=== PATIENT | male | born 1940 | race Caucasian/White ===

== ENCOUNTER 2016-11-15 08:53 | Outpatient (CLI) | payer MEDICARE | END 2016-11-15 08:54 | disposition home or self-care (01) | DX: I10 Essential (primary) hypertension (principal); C61 Malignant neoplasm of prostate ==

== ENCOUNTER 2017-10-07 10:06 | Outpatient (CLI) | payer MEDICARE ==
--- NOTE | 2017-10-07 15:52 | XRAY Report ---
DATE OF SERVICE: 10/07/2017 TWO VIEW CHEST: 10/07/2017 CLINICAL INDICATION: Cough. FINDINGS: Frontal and lateral views of the chest demonstrate a normal cardiac silhouette. There is consolidation in the left upper lobe, which appears mass-like on the lateral projection. Followup radiographs following appropriate antibiotic therapy are recommended to document resolution. Trace left effusion is present. No pneumothorax is seen. The right lung is clear. IMPRESSION: MASS-LIKE CONSOLIDATION IN THE LEFT UPPER LOBE, WITH TRACE LEFT EFFUSION. FOLLOWUP RADIOGRAPHS FOLLOWING APPROPRIATE ANTIBIOTIC THERAPY ARE RECOMMENDED TO DOCUMENT RESOLUTION. TD: 10/07/2017 16:51
== END 2017-10-07 10:07 | disposition home or self-care (01) ==
LOC: DI.S 10:06
PROVIDERS: ATTEND Physician Assistant Medical
DX: J18.1 Lobar pneumonia, unspecified organism (principal)
CPT/HCPCS: 71046

== ENCOUNTER 2017-10-28 09:27 | Outpatient (CLI) | payer MEDICARE ==
--- NOTE | 2017-10-28 12:49 | XRAY Report ---
TWO VIEW CHEST: 10/28/2017 CLINICAL INDICATION: Pneumonia, chest wall pain. FINDINGS: Frontal and lateral views of the chest are compared to previous films of 10/07/2017. The cardiac silhouette is within normal limits. The left upper lobe consolidation persists. Consider chest CT for further evaluation. No definite residual effusion is seen. No pneumothorax. IMPRESSION: NO SIGNIFICANT INTERVAL CHANGE IN LEFT UPPER LOBE CONSOLIDATION. CONSIDER CHEST CT FOR FURTHER EVALUATION. TD: 10/28/2017 12:48
== END 2017-10-28 09:28 | disposition home or self-care (01) ==
LOC: DI.S 09:27
PROVIDERS: ATTEND Family Medicine
DX: J18.9 Pneumonia, unspecified organism (principal)
CPT/HCPCS: 71046

== ENCOUNTER 2017-11-01 14:26 | Emergency (ER) | payer MEDICARE ==
--- NOTE | 2017-11-01 14:54 | ED Physician Documentation ---
PD HPI CHEST PAIN - Stated complaint Stated Complaint: CHEST PX - Chief complaint Chief Complaint: Cardiac - History obtained from History obtained from: Patient, Family - History of Present Illness Timing - onset: Other (77-year-old gentleman with history of hypertension, started having chest pain, left upper side and radiating to the left upper scapula about 2 months ago. Was seen in the clinic several times and prescribed ibuprofen and Aleve without much relief. He had a chest x-ray suggesting left upper lobe pneumonia and was placed on antibiotics and then had a repeat chest x-ray a few days ago showing no improvements raising the diagnosis of possible cancer. His pain is uncontrolled and he also needs a definitive diagnosis.) Review of Systems Ten Systems: 10 systems reviewed and negative Constitutional: reports: Fatigue. denies: Fever, Chills, Sweats Cardiac: reports: Chest pain / pressure. denies: Palpitations, Pedal edema, Calf pain Respiratory: denies: Dyspnea, Cough PD PAST MEDICAL HISTORY - Past Medical History Cardiovascular: Hypertension, Murmur Respiratory: None Endocrine/Autoimmune: None GI: None : Frequency, Other HEENT: Chronic vision loss, Chronic hearing loss Psych: Anxiety Musculoskeletal: Gout Derm: None - Past Surgical History General: Colonoscopy HEENT: Tonsil/Adenoidectomy - Present Medications Home Medications: Ambulatory Orders Medication Instructions Recorded Confirmed Allopurinol [Zyloprim] 100 mg PO DAILY 07/25/16 07/26/16 Alprazolam [Xanax Xr] 0.5 mg PO QPM PRN 07/25/16 07/26/16 Aspirin [Adult Low Dose Aspirin EC] 81 mg PO DAILY 07/25/16 07/26/16 Lisinopril 20 mg PO DAILY 07/25/16 07/26/16 Metoprolol Succinate 50 mg PO DAILY 07/25/16 07/26/16 HYDROcod/ACETAM 5/325 [[place] 5/325] 1 - 2 ea PO Q6H PRN #30 tablet 11/01/17 - Allergies Allergies/Adverse Reactions: Allergies Allergy/AdvReac Type Severity Reaction Status Date / Time No Known Drug Allergies Allergy Verified 11/01/17 15:37 - Family History Family history: reports: Non contributory PD ED PE NORMAL - Vitals Vital signs reviewed: Yes - General General: Alert and oriented X 3, No acute distress - HEENT HEENT: PERRL, EOMI - Neck Neck: Supple, no meningeal sign, No bony TTP - Cardiac Cardiac: RRR, No murmur - Respiratory Respiratory: Other (Splinting his breaths, diminished at the left base) - Abdomen Abdomen: Soft, Non tender - Back Back: No CVA TTP, No spinal TTP - Derm Derm: Normal color, Warm and dry - Extremities Extremities: No edema, No calf tenderness / cord - Neuro Neuro: Alert and oriented X 3, Normal speech - Psych Psych: Normal mood, Normal affect Results - Vitals Vitals: Vital Signs - 24 hr 11/01/17 11/01/17 14:33 15:30 Temperature 37.0 C Heart Rate 97 95 Respiratory 18 14 Rate Blood Pressure 171/102 H 178/101 H O2 Saturation 97 94 Oxygen O2 Source Room air - EKG (time done) 1437 Rate: Rate (enter#) (104) Rhythm: Sinus tachycardia (with PVCs) [place]: Normal Intervals: Normal [place] QRS: Normal Ischemia: Non specific changes Computer interpretation: Agree with computer - Labs Labs: Laboratory Tests 11/01/17 11/01/17 11/01/17 14:50 14:50 14:50 WBC 9.0 RBC 5.39 Hgb 15.4 Hct 45.9 MCV 85.2 MCH 28.5 MCHC 33.5 RDW 13.5 Plt Count 237 MPV 7.2 L Neut # 6.8 H Lymph # 1.1 L Wallace # 0.7 Eos # 0.3 Baso # 0.1 Absolute Nucleated RBC 0.00 Nucleated RBC % 0.0 PT 11.6 INR 1.0 Sodium 135 Potassium 3.8 Chloride 98 L Carbon Dioxide 28 Anion Gap 9.0 BUN 17 Creatinine 0.8 Estimated GFR (MDRD) 94 Glucose 103 H Calcium 9.3 Total Bilirubin 1.2 H AST 26 ALT 14 Alkaline Phosphatase 88 Troponin I Total Protein 7.6 Albumin 4.1 Globulin 3.5 Albumin/Globulin Ratio 1.2 Lipase 13 L 11/01/17 14:50 WBC RBC Hgb Hct MCV MCH MCHC RDW Plt Count MPV Neut # Lymph # [place] # Eos # Baso # Absolute Nucleated RBC Nucleated RBC % PT INR Sodium Potassium Chloride Carbon Dioxide Anion Gap BUN Creatinine Estimated GFR (MDRD) Glucose Calcium Total Bilirubin AST ALT Alkaline Phosphatase Troponin I < 0.04 Total Protein Albumin Globulin Albumin/Globulin Ratio Lipase - Rads (name of study) CT Chest Radiology: EMP read contemporaneously (4.4 x 3.7 x 6.1 cm thick-walled irregular cavitating mass in the left upper lobe concerning for primary lung neoplasm. There is a skin lesion in the left upper back corresponding to a sebaceous cyst on exam.) PD MEDICAL DECISION MAKING - ED course ED course: 77-year-old gentleman with ongoing left upper chest pain radiating to the back which based on previous imaging is concerning for malignancy which is corroborated by CT imaging done here. Case discussed by phone with primary care on-call, VINICIO Cornejo who will arrange for an expedited referral to a CT surgeon for hopefully definitive treatment. Departure - Departure Disposition: Home, Self Care Clinical Impression: Lung mass Chest pain Qualifiers: Chest pain type: chest pain on breathing Qualified Code(s): R07.1 - Chest pain on breathing; R07.81 - Pleurodynia Condition: Good Record reviewed to determine appropriate education?: Yes Prescriptions: HYDROcod/ACETAM 5/325 [[place] 5/325] 1 - 2 ea PO Q6H PRN #30 tablet PRN Reason: Pain Comments: Dr. Mathews's partner knows about the issue but call Dr. Mathews on Saturday to make sure that the referral is going through, as discussed you will need to see a cardiothoracic surgeon for evaluation for further treatment. Refer return if worse. Your blood pressure was elevated today on check into the emergency department. This does not mean that you have hypertension, it is a common phenomenon to come to the emergency department and have elevated blood pressure. I recommend that you see your primary care physician within the week to have it rechecked when you are feeling better. Do not drink or drive while taking narcotic pain medication. Note that many narcotic pain relievers also contain Tylenol/acetaminophen. Please ensure that your total dose of acetaminophen from all sources does not exceed 3 g (3000 mg) per day. You may get constipated while on this medication. Take a stool softener such as Colace twice a day while you are on it. Also add an [id number] laxative such as senna or MiraLAX on any day that you do not have a bowel movement. If you received a narcotic pain medication or sedative while in the emergency department, do not drive for the next 24 hours.
[2017-11-01] MEDS: MORPHINE 2 MG/ML CARPUJECT IVP STA (15:03)
[2017-11-01 15:16] LABS: BASOPHILS # (AUTO) 0.1 10^3/uL (0.0-0.1); BASOPHILS % (AUTO) 0.7 %; EOSINOPHILS # (AUTO) 0.3 10^3/uL (0.0-0.7); EOSINOPHILS % (AUTO) 3.8 %; HGB - HEMOGLOBIN 15.4 g/dL (14.0-18.0); LYMPHOCYTES # (AUTO) 1.1 10^3/uL (1.5-3.5); LYMPHOCYTES % (AUTO) 11.8 %; MEAN CORPUSCULAR HEMOGLOBIN 28.5 pg (27.0-31.0); MEAN CORPUSCULAR HGB CONC 33.5 g/dL (32.0-36.0); MEAN CORPUSCULAR VOLUME 85.2 fL (80.0-94.0); MEAN PLATELET VOLUME 7.2 fL (7.4-11.4); MONOCYTES # (AUTO) 0.7 10^3/uL (0.0-1.0); MONOCYTES % (AUTO) 7.5 %; NEUTROPHILS # (AUTO) 6.8 10^3/uL (1.5-6.6); NEUTROPHILS % (AUTO) 76.2 %; PLT - PLATELET COUNT 237 10^3/uL (130-450); RED BLOOD COUNT 5.39 10^6/uL (4.70-6.10); RED CELL DISTRIBUTION WIDTH 13.5 % (12.0-15.0)
[2017-11-01] MEDS ORDERED: IOPAMIDOL-300 100 ML VIAL ONE (15:19)
[2017-11-01 15:23] LABS: PT - PROTHROMBIN TIME 11.6 secs (9.9-12.6)
[2017-11-01 15:25] LABS: ALBUMIN 4.1 g/dL (3.2-5.5); ALBUMIN/GLOBULIN RATIO 1.2 (1.0-2.2); BILIRUBIN,TOTAL 1.2 mg/dL (0.2-1.0); CALCIUM 9.3 mg/dL (8.5-10.3); CREATININE 0.8 mg/dL (0.6-1.2); TOTAL PROTEIN 7.6 g/dL (6.7-8.2)
[2017-11-01] MEDS: IOPAMIDOL-300 100 ML VIAL IVP ONE (16:49)
--- NOTE | 2017-11-01 17:22 | CT Preliminary Report ---
Exam: CT CHEST W/ IMPRESSION: 1. 4.4 x 3.7 x 6.1 cm thick-walled irregular cavitating mass, less likely lung abscess, left upper lo be extremely worrisome for primary neoplasm. 2. Mediastinal and left hilar adenopathy. 3. 4.3 x 2.8 x 3.0 cm skin lesion left upper back. Correlate clinically to determine significance and etiology. [facility] SITE ID: [id number]
--- NOTE | 2017-11-01 17:31 | CT Report ---
EXAM: CT CHEST EXAM DATE: 11/01/2017 04:47 PM. CLINICAL HISTORY: Left chest pain and nonproductive cough for 2 months. Left upper lobe density noted on recent chest x-rays. COMPARISONS: No prior CT exam. Chest x-rays 10/28/2017, 10/07/2017. TECHNIQUE: Routine helical CT imaging was performed through the chest. IV contrast: 80 mL Isovue 300. Reconstructions: Coronal and sagittal. In accordance with CT protocol optimization, one or more of the following dose reduction techniques w ere utilized for this exam: automated exposure control, adjustment of mA and/or KV based on patient s ize, or use of iterative reconstructive technique. FINDINGS: Lungs/Pleura: Poorly defined 4.4 x 3.7 x 6.1 cm irregular density posterior aspect apical segment lef t upper lobe, abutting the pleura along the posterior intercostal space of the left fourth and fifth ribs. Pleura at this point is thickened and a slight amount of edema in the intercostal muscle. Adjac ent ribs are normal. Thick-walled internal cavitation with the cavity measuring roughly 3.5 cm. [place] wing of the apical bronchus. Small amount of peripheral nonspecific subpleural nodularity and interst itial infiltrates. Right lung is clear. No pneumothorax nor pleural effusion. Mediastinum: Heart is of normal caliber without significant pericardial fluid. Normal thoracic aorta. Multiple mildly enlarged pretracheal, periaortic and left hilar lymph nodes measuring up to 10 mm in transverse diameter. Bones: No bony metastatic disease. Visualized Abdomen: 5 cm right renal cyst. Other: 4.3 x 2.8 x 3 cm dermal or subdermal density just to the left of midline, at the level of T3 w ith low intermediate fluid contents. IMPRESSION: 1. 4.4 x 3.7 x 6.1 cm thick-walled irregular cavitating mass, less likely lung abscess, left upper lo be extremely worrisome for primary neoplasm. 2. Mediastinal and left hilar adenopathy. 3. 4.3 x 2.8 x 3.0 cm skin lesion left upper back. Correlate clinically to determine significance and etiology. [facility] Referring Provider Line: [phone] SITE ID: [id number]
[2017-11-01 18:21] VITALS: BP 187/105
== END 2017-11-01 18:20 | disposition home or self-care (01) ==
LOC: ED 14:26
DX: R07.1 Chest pain on breathing (principal); R07.81 Pleurodynia; I10 Essential (primary) hypertension; R91.8 Other nonspecific abnormal finding of lung field; I49.3 Ventricular premature depolarization; L72.3 Sebaceous cyst
CPT/HCPCS: 36415; 71260; 80053; 83690; 84484; 85025; 85610; 93005; 96374; 99283; 99285

== ENCOUNTER 2017-11-13 15:22 | Emergency (ER) | payer MEDICARE ==
--- NOTE | 2017-11-13 15:41 | ED Physician Documentation ---
PD HPI DYSPNEA - Stated complaint Stated Complaint: SOA - Chief complaint Chief Complaint: Resp - History obtained from History obtained from: Patient, Family - History of Present Illness Timing - onset: Other (77-year-old gentleman who I saw within the last few weeks , found to have a lung mass, left upper lobe. He is seeing a cardiothoracic surgeon next week. He notes increased dyspnea over the last few days with a couple days of slight hemoptysis and one night of severe sweats and chills.) Review of Systems Constitutional: reports: Chills, Fatigue, Sweats. denies: Fever Nose: reports: Reviewed and negative Throat: reports: Reviewed and negative Cardiac: reports: Reviewed and negative Respiratory: reports: Dyspnea, Cough PD PAST MEDICAL HISTORY - Past Medical History Cardiovascular: Hypertension, Murmur Respiratory: None Endocrine/Autoimmune: None GI: None : Frequency, Other HEENT: Chronic vision loss, Chronic hearing loss Psych: Anxiety Musculoskeletal: Gout Derm: None - Past Surgical History General: Colonoscopy HEENT: Tonsil/Adenoidectomy - Present Medications Home Medications: Ambulatory Orders Medication Instructions Recorded Confirmed Allopurinol [Zyloprim] 100 mg PO DAILY 07/25/16 07/26/16 Lisinopril 20 mg PO DAILY 07/25/16 11/13/17 Metoprolol Succinate 25 mg PO DAILY 07/25/16 11/13/17 HYDROcod/ACETAM 5/325 [[place] 5/325] 1 - 2 ea PO Q6H PRN #30 tablet 11/01/1703/26 - Allergies Allergies/Adverse Reactions: Allergies Allergy/AdvReac Type Severity Reaction Status Date / Time No Known Drug Allergies Allergy Verified 11/13/17 15:29 - Social History Does the pt smoke?: No Smoking Status: Former smoker Does the pt drink ETOH?: Yes Does the pt have substance abuse?: No PD ED PE NORMAL - Vitals Vital signs reviewed: Yes - General General: Alert and oriented X 3, No acute distress - Cardiac Cardiac: RRR, No murmur - Respiratory Respiratory: No respiratory distress, Clear bilaterally - Abdomen Abdomen: Non tender - Extremities Extremities: No edema, No calf tenderness / cord - Neuro Neuro: Alert and oriented X 3, Normal speech Results - Vitals Vitals: Vital Signs - 24 hr 11/13/17 11/13/17 15:26 17:23 Temperature 36.4 C L Heart Rate 104 H 98 Respiratory 16 16 Rate Blood Pressure 135/58 H 171/106 H O2 Saturation 97 98 Oxygen O2 Source Room air - Labs Labs: Laboratory Tests 11/13/17 11/13/17 15:50 15:50 WBC 8.3 RBC 5.44 Hgb 15.3 Hct 46.4 MCV 85.3 MCH 28.1 MCHC 32.9 RDW 13.7 Plt Count 232 MPV 7.3 L Neut # 6.2 Lymph # 1.0 L [place] # 0.6 Eos # 0.3 Baso # 0.2 H Absolute Nucleated RBC 0.01 Nucleated RBC % 0.1 Sodium 134 L Potassium 3.9 Chloride 101 Carbon Dioxide 25 Anion Gap 8.0 BUN 17 Creatinine 0.7 Estimated GFR (MDRD) 109 Glucose 141 H Calcium 9.5 - Rads (name of study) CT CHest Radiology: EMP read contemporaneously (no sig change) PD MEDICAL DECISION MAKING - ED course ED course: I spoke with the radiologist, Dr. Montes prior to ordering any imaging. He reviewed the old studies and knowing that I was specifically concerned for a postobstructive pneumonia felt that a repeat CT with contrast would be helpful and chest x-ray was unlikely to be diagnostic. 77-year-old gentleman with known lung tumor undergoing workup and treatment presents with Symptoms concerning for postobstructive pneumonia but this is not found on imaging and no leukocytosis. Departure - Departure Disposition: Home, Self Care Clinical Impression: Lung mass Chest pain Qualifiers: Chest pain type: unspecified Qualified Code(s): R07.9 - Chest pain, unspecified Condition: Good Record reviewed to determine appropriate education?: Yes Comments: Return if he develop a fever or otherwise worsen. Otherwise follow-up with the surgeon next Saturday as scheduled. Your blood pressure was elevated today on check into the emergency department. This does not mean that you have hypertension, it is a common phenomenon to come to the emergency department and have elevated blood pressure. I recommend that you see your primary care physician within the week to have it rechecked when you are feeling better.
[2017-11-13 16:13] LABS: BASOPHILS # (AUTO) 0.2 10^3/uL (0.0-0.1); BASOPHILS % (AUTO) 2.1 %; EOSINOPHILS # (AUTO) 0.3 10^3/uL (0.0-0.7); EOSINOPHILS % (AUTO) 4.1 %; HGB - HEMOGLOBIN 15.3 g/dL (14.0-18.0); LYMPHOCYTES % (AUTO) 11.8 %; MEAN CORPUSCULAR HEMOGLOBIN 28.1 pg (27.0-31.0); MEAN CORPUSCULAR HGB CONC 32.9 g/dL (32.0-36.0); MEAN CORPUSCULAR VOLUME 85.3 fL (80.0-94.0); MEAN PLATELET VOLUME 7.3 fL (7.4-11.4); MONOCYTES # (AUTO) 0.6 10^3/uL (0.0-1.0); MONOCYTES % (AUTO) 7.5 %; NEUTROPHILS # (AUTO) 6.2 10^3/uL (1.5-6.6); NEUTROPHILS % (AUTO) 74.5 %; PLT - PLATELET COUNT 232 10^3/uL (130-450); RED BLOOD COUNT 5.44 10^6/uL (4.70-6.10); RED CELL DISTRIBUTION WIDTH 13.7 % (12.0-15.0); WHITE BLOOD COUNT 8.3 x10^3/uL (4.8-10.8)
[2017-11-13 16:19] LABS: CALCIUM 9.5 mg/dL (8.5-10.3); CREATININE 0.7 mg/dL (0.6-1.2)
[2017-11-13] MEDS ORDERED: IOPAMIDOL-300 100 ML VIAL ONE (16:29)
[2017-11-13] MEDS ORDERED: IOPAMIDOL-300 100 ML VIAL IVP ONE (17:15)
[2017-11-13 17:24] VITALS: BP 171/106
--- NOTE | 2017-11-13 17:39 | CT Preliminary Report ---
Exam: CT CHEST W/ IMPRESSION: 1. Necrotic cavitary masslike lesion in the left upper lobe grossly unchanged since most recent study . While necrotizing pneumonia and lung carcinoma on the differential, favor cancer over infection. 2. [place], stable mediastinal adenopathy 3. Coronary artery disease. [facility] SITE ID: [id number]
--- NOTE | 2017-11-13 18:00 | CT Report ---
EXAM: CT CHEST EXAM DATE: 11/13/2017 04:52 PM. CLINICAL HISTORY: Known lung mass, new cough, hemoptysis. COMPARISONS: 11/01/2017. TECHNIQUE: Routine helical CT imaging was performed through the chest. IV contrast: 80 mL Isovue 300. Reconstructions: Coronal and sagittal. In accordance with CT protocol optimization, one or more of the following dose reduction techniques w ere utilized for this exam: automated exposure control, adjustment of mA and/or KV based on patient s ize, or use of iterative reconstructive technique. FINDINGS: Lungs/Pleura: There is a heterogeneously enhancing posterior basilar left upper lobe masslike lesion with central fluid and air. Imaging findings are most compatible with a necrotic mass versus necrotiz ing pneumonia. Necrotic cavitary portion measures approximately 4.1 x 2.9 cm. Mild interlobular septa l thickening is noted in the left upper lobe best seen on image 4, 10. The mass extends to the fissur e and the posterior and lateral pleura. Accurate measurement is challenging given the irregular shape . Overall, this is unchanged since the most recent study performed 11/01/2017. No pneumothorax or large effusions. Mild atelectatic changes at the bases. No additional lung mass or nodule. No associated destructive process of the ribs. Mediastinum: No cardiac enlargement. Shotty mediastinal and hilar adenopathy including a 1 cm prevasc ular node, 1 cm AP window node, and 0.9 cm subcarinal node. Patchy atheromatous calcified and noncalc ified plaques. No thoracic aortic dissection or aneurysm. Coronary artery disease is present in all t he major vessels. No pericardial effusion. Bones: Unremarkable. Visualized Abdomen: Mild fatty liver. Adrenal glands are normal. Visualized portions of the pancreas, spleen and gallbladder are unremarkable. Exophytic 6 cm right upper pole renal cyst, image 69. Other: No thyroid nodule or mass. No supraclavicular or axillary adenopathy. There is a stable 3.9 x 2.4 cm hypodense soft tissue mass in the midline of the upper back, image 13 as seen previously. No e nhancing components. There is mild peripheral enhancing wall or capsule. IMPRESSION: 1. Necrotic cavitary masslike lesion in the left upper lobe grossly unchanged since most recent study . While necrotizing pneumonia and lung carcinoma are in the differential, favor cancer over infection . 2. [place], stable mediastinal and hilar adenopathy. 3. Coronary artery disease. [facility] Referring Provider Line: [phone] SITE ID: [id number]
== END 2017-11-13 18:06 | disposition home or self-care (01) ==
LOC: ED 15:22
DX: D49.1 Neoplasm of unspecified behavior of respiratory system (principal); R07.9 Chest pain, unspecified; I10 Essential (primary) hypertension; Z87.891 Personal history of nicotine dependence
CPT/HCPCS: 36415; 71260; 80048; 85025; 99283; 99284; Q9967

== ENCOUNTER 2018-01-20 11:50 | Outpatient (CLI) | payer MEDICARE | END 2018-01-20 11:51 | disposition short-term general hospital (02) | LOC: EMS 11:50 | PROVIDERS: ATTEND Surgery | DX: R42 Dizziness and giddiness (principal); R53.1 Weakness | CPT/HCPCS: A0170; A0425; A0427 ==

== ENCOUNTER 2018-01-26 14:43 | Inpatient (IN) | payer MEDICARE ==
[2018-01-26 15:12] LABS: BASOPHILS % (AUTO) 0.4 %; EOSINOPHILS # (AUTO) 0.4 10^3/uL (0.0-0.7); EOSINOPHILS % (AUTO) 3.6 %; HGB - HEMOGLOBIN 9.2 g/dL (14.0-18.0); LYMPHOCYTES # (AUTO) 0.4 10^3/uL (1.5-3.5); LYMPHOCYTES % (AUTO) 4.2 %; MEAN CORPUSCULAR HEMOGLOBIN 27.3 pg (27.0-31.0); MEAN PLATELET VOLUME 6.5 fL (7.4-11.4); MONOCYTES # (AUTO) 0.6 10^3/uL (0.0-1.0); MONOCYTES % (AUTO) 5.6 %; NEUTROPHILS # (AUTO) 9.2 10^3/uL (1.5-6.6); NEUTROPHILS % (AUTO) 86.2 %; PLT - PLATELET COUNT 327 10^3/uL (130-450); RED BLOOD COUNT 3.37 10^6/uL (4.70-6.10); RED CELL DISTRIBUTION WIDTH 14.2 % (12.0-15.0); WHITE BLOOD COUNT 10.7 x10^3/uL (4.8-10.8)
--- NOTE | 2018-01-26 15:23 | ED Physician Documentation ---
PD HPI CHEST PAIN - Stated complaint Stated Complaint: SOA, BILAT LEG/FEET SWELLING - Chief complaint Chief Complaint: Cardiac - History obtained from History obtained from: Patient, Family - History of Present Illness Timing - onset: Today (On 01/13 had thoracotomy with lobectomy and resection of NSCLC. Today, early this AM with chest tightness and dyspnea. On home O2 1.5 lpm since the surgery.) Review of Systems Ten Systems: 10 systems reviewed and negative Constitutional: reports: Fatigue. denies: Fever, Chills Cardiac: reports: Chest pain / pressure (tightness- no pain). denies: Palpitations Respiratory: reports: Dyspnea. denies: Cough GI: denies: Abdominal Pain PD PAST MEDICAL HISTORY - Past Medical History Past Medical History: Yes Cardiovascular: Hypertension, Murmur Respiratory: None Endocrine/Autoimmune: None GI: None : Frequency, Other HEENT: Chronic vision loss, Chronic hearing loss Psych: Anxiety Musculoskeletal: Gout Derm: None Other Past Medical History: Lung Ca - Past Surgical History General: Colonoscopy Cardiovascular: Lobectomy HEENT: Tonsil/Adenoidectomy - Present Medications Home Medications: Ambulatory Orders Medication Instructions Recorded Confirmed Allopurinol [Zyloprim] 100 mg PO DAILY 07/25/16 07/26/16 Lisinopril 20 mg PO DAILY 07/25/16 11/13/17 Metoprolol Succinate 25 mg PO DAILY 07/25/16 11/13/17 Citalopram [CeleXA] 10 mg PO DAILY 01/26/18 01/26/18 Ferrous Sulfate 01/26/18 Furosemide [Lasix] 20 mg PO ONCE 01/26/18 01/26/18 Gabapentin [Neurontin] 200 mg PO TID 01/26/18 01/26/18 Indomethacin 50 mg PO TID 01/26/18 01/26/18 Morphine ER [Ms Contin] 15 mg PO Q12H 01/26/18 01/26/18 Potassium Chloride 20 meq PO 01/26/18 Senna [Senokot] 1 tab 01/26/18 oxyCODONE [Roxicodone] 5 mg PO Q4-6H 01/26/18 01/26/18 - Allergies Allergies/Adverse Reactions: Allergies Allergy/AdvReac Type Severity Reaction Status Date / Time No Known Drug Allergies Allergy Verified 01/26/18 14:51 - Social History Does the pt smoke?: No Smoking Status: Never smoker Does the pt drink ETOH?: No Does the pt have substance abuse?: No - Family History Family history: reports: Non contributory - Immunizations Immunizations are current?: Yes PD ED PE NORMAL - Vitals Vital signs reviewed: Yes (HTN) - General General: Alert and oriented X 3, No acute distress - HEENT HEENT: PERRL, EOMI - Neck Neck: Supple, no meningeal sign, No bony TTP - Cardiac Cardiac: RRR, No murmur - Respiratory Respiratory: No respiratory distress, Other (Diminished Left base, otherwise clear.) - Abdomen Abdomen: Soft, Non tender - Back Back: No CVA TTP, No spinal TTP - Derm Derm: Normal color, Warm and dry - Extremities Extremities: Other (2+ bilateral symmetric pitting edema. Also, mild abdominal and RUE swelling.) - Neuro Neuro: Alert and oriented X 3, Normal speech - Psych Psych: Normal mood, Normal affect Results - Vitals Vitals: Vital Signs - 24 hr 01/26/18 01/26/18 01/26/18 14:47 15:16 15:51 Temperature 36.6 C Heart Rate 106 H 87 91 Respiratory 26 H 11 L 14 Rate Blood Pressure 179/102 H 141/73 H 145/85 H O2 Saturation 96 99 98 01/26/18 01/26/18 16:20 17:49 Temperature Heart Rate 99 100 Respiratory 18 18 Rate Blood Pressure 152/91 H 158/84 H O2 Saturation 98 98 Oxygen O2 Source Nasal cannula - EKG (time done) 1451 Rate: Rate (enter#) (97) Rhythm: NSR [place]: Normal Intervals: Normal [place] QRS: Normal Ischemia: Normal ST segments Computer interpretation: Agree with computer - Labs Labs: Laboratory Tests 01/26/18 01/26/18 01/26/18 14:59 14:59 14:59 WBC 10.7 RBC 3.37 L Hgb 9.2 L Hct 28.0 L MCV 83.0 MCH 27.3 MCHC 33.0 RDW 14.2 Plt Count 327 MPV 6.5 L Neut # 9.2 H Lymph # 0.4 L [place] # 0.6 Eos # 0.4 Baso # 0.0 Absolute Nucleated RBC 0.00 Nucleated RBC % 0.0 PT 11.7 INR 1.0 Sodium 134 L Potassium 6.1 H* Chloride 98 L Carbon Dioxide 31 Anion Gap 5.0 L BUN 30 H Creatinine 1.0 Estimated GFR (MDRD) 72 L Glucose 102 H Calcium 8.9 Total Bilirubin 0.5 AST 21 ALT 11 Alkaline Phosphatase 100 Total Creatine Kinase 83 CK-MB (CK-2) Troponin I B-Natriuretic Peptide Total Protein 6.7 Albumin 3.0 L Globulin 3.7 Albumin/Globulin Ratio 0.8 L Lipase 45 01/26/18 01/26/18 14:59 14:59 WBC RBC Hgb Hct MCV MCH MCHC RDW Plt Count MPV Neut # Lymph # [place] # Eos # Baso # Absolute Nucleated RBC Nucleated RBC % PT INR Sodium Potassium Chloride Carbon Dioxide Anion Gap BUN Creatinine Estimated GFR (MDRD) Glucose Calcium Total Bilirubin AST ALT Alkaline Phosphatase Total Creatine Kinase CK-MB (CK-2) 5.4 Troponin I < 0.04 B-Natriuretic Peptide 336 H Total Protein Albumin Globulin Albumin/Globulin Ratio Lipase - Rads (name of study) 1v chest Radiology: EMP read contemporaneously (1. Status post left partial lung resection. Left pleural effusion may be present. 2. The right lung is relatively clear. 3. Heart size within normal limits. There is thoracic aortic calcification. 4. No evidence of pneumothorax. ) Ct PE Radiology: EMP read contemporaneously (1. No evidence of pulmonary embolus. 2. Status post left upper lobectomy with pleural thickening and trace left effusion as well as a small loculated pneumothorax, mostly at the apex of the left hemithorax. This can be postoperative in nature although follow-up chest x- rays are recommended to document resorption of the air. 3. Areas of diskoid atelectasis or scarring within the left hemithorax. 4. Mildly enlarged subcarinal lymph node, increased in size compared to the study of 2 months prior.) PD MEDICAL DECISION MAKING - ED course ED course: 77-year-old gentleman with recent thoracotomy for lung cancer presents with increased anasarca and dyspnea, potentially right-sided heart failure by examination, no evidence of PE. CT results as shown. He does have hyperkalemia which was treated in the department with Lasix and calcium. Spoke with Dr. Ruffin for admission at 5:25 PM. Departure - Departure Disposition: 66 [facility] DC/Xfer Clinical Impression: Anasarca, Hyperkalemia Chest pain Qualifiers: Chest pain type: other chest pain Qualified Code(s): R07.89 - Other chest pain Dyspnea Qualifiers: Dyspnea type: shortness of breath Qualified Code(s): R06.02 - Shortness of breath Condition: Serious Discharge Date/Time: 01/26/18 19:19
[2018-01-26 15:26] LABS: PT - PROTHROMBIN TIME 11.7 secs (9.9-12.6)
[2018-01-26] MEDS ORDERED: FUROSEMIDE 40 MG/4 ML VIAL IVP STA (15:27)
[2018-01-26] MEDS ORDERED: NITROGLYCERIN 2% PASTE TOP STA (15:27)
[2018-01-26 15:29] LABS: TROPONIN I < 0.04 ng/mL (<0.49)
[2018-01-26 15:31] LABS: CREATINE KINASE MB 5.4 ng/mL (0.6-6.3)
[2018-01-26 15:41] LABS: ALBUMIN/GLOBULIN RATIO 0.8 (1.0-2.2); BILIRUBIN,TOTAL 0.5 mg/dL (0.2-1.0); CALCIUM 8.9 mg/dL (8.5-10.3); TOTAL PROTEIN 6.7 g/dL (6.7-8.2)
[2018-01-26] MEDS ORDERED: CALCIUM GLUCONATE 1000 MG/10 ML VIAL IVP STA (15:41)
--- NOTE | 2018-01-26 15:45 | XRAY Report ---
EXAM: CHEST RADIOGRAPHY EXAM DATE: 01/26/2018 03:26 PM. CLINICAL HISTORY: Chest pain COMPARISON: 11/13/2017. TECHNIQUE: 1 view. FINDINGS: Lungs/Pleura: There is left lung volume loss. Patient has undergone left partial lung resection. Left effusion may be present. The right lung is relatively clear. No evidence of pneumothorax. Mediastinum: Heart size is within normal limits. There is thoracic aortic calcification. Other: Right Port-A-Cath tip terminates in the low SVC. IMPRESSION: 1. Status post left partial lung resection. Left pleural effusion may be present. 2. The right lung is relatively clear. 3. Heart size within normal limits. There is thoracic aortic calcification. 4. No evidence of pneumothorax. [facility] Referring Provider Line: [phone] SITE ID: [id number]
[2018-01-26] MEDS ORDERED: IOPAMIDOL-300 100 ML VIAL IVP ONE (15:51)
[2018-01-26] MEDS ORDERED: IOPAMIDOL-300 100 ML VIAL ONE (15:58)
--- NOTE | 2018-01-26 17:21 | CT Report ---
EXAM: CT ANGIOGRAM CHEST EXAM DATE: 01/26/2018 04:06 PM. CLINICAL HISTORY: Post operative dyspnea. COMPARISON: Chest CT 11/13/2017. TECHNIQUE: Routine helical imaging was performed through the chest in the pulmonary arterial phase. I V Contrast: CE. Reconstructions: Coronal 3-D MIP reconstructions.Sagittal and coronal. In accordance with CT protocol optimization, one or more of the following dose reduction techniques w ere utilized for this exam: automated exposure control, adjustment of mA and/or KV based on patient s ize, or use of iterative reconstructive technique. FINDINGS: Pulmonary Arteries: Diagnostic quality: Adequate through the segmental arteries. No evidence for acute or chronic pulmona ry emboli. Lungs/Pleura: The patient is status post interval left upper lobectomy. There is a staple line at the stump of the left upper lobe bronchus with some amorphous soft tissue density, likely postoperative. There is associated volume loss within left hemithorax with some distortion of the left pulmonary ar sam. Note is made of an apparent suture line at the left superior pulmonary vein with some thrombus within the stump of the vein (4, 71). There is resection of the left fourth through sixth rib posteriorly as well as a fracture of the left seventh rib posteriorly. There is associated adjacent pleural thickening as well as a part of an delonte arent mesh along the posterolateral aspect of the left hemithorax along the defect. Pleural thickenin g is prominent at the left lung apex with some loculated air. Pleural thickening within left lung bas e with trace left pleural effusion. There are some bandlike areas of atelectasis within the residual left lung. The right lung is mostly clear with a few minimal areas of diskoid atelectasis. Mediastinum: Subcentimeter mediastinal lymph nodes in the AP window and pretracheal region with a 14 mm subcarinal lymph node which is mildly increased in size compared to the prior exam. No pericardial effusion. Coronary atherosclerosis. Thoracic Aorta: Atherosclerosis without thoracic aortic aneurysm. Upper Abdomen: Cyst upper pole right kidney measuring 6.2 cm. Other: Likely sebaceous cyst posteriorly measuring 4.2 cm. Subcutaneous edema along the left aspect o f the thorax. IMPRESSION: 1. No evidence of pulmonary embolus. 2. Status post left upper lobectomy with pleural thickening and trace left effusion as well as a smal l loculated pneumothorax, mostly at the apex of the left hemithorax. This can be postoperative in robert ure although follow-up chest x-rays are recommended to document resorption of the air. 3. Areas of diskoid atelectasis or scarring within the left hemithorax. 4. Mildly enlarged subcarinal lymph node, increased in size compared to the study of 2 months prior. [facility] Referring Provider Line: [phone] SITE ID: [id number]
[2018-01-26] MEDS ORDERED: ONDANSETRON 4 MG/2 ML VIAL IVP PRN (18:06)
--- NOTE | 2018-01-26 18:28 | HISTORY & PHYSICAL EXAMINATION ---
Chief Complaint - Chief Complaint Chief Complaint: shortness of breath History of Present Illness - Admitted From Admitted From:: ER - History Obtained From History obtained from: pt and pt's son - History of Present Illness HPI Comment/Other: Mr. 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 Mullen on [facility] on 01/13/18. Pt was discharged on 01/18/18. Pt developed severe lower blood pressure and generalized weakness, and re-admitted on [facility] on 01/20/18, then discharged on 01/22/18, who present ER today complaints of shortness of breath, bilateral edema, and chest tightness. Pt was found potassium at 6.1 in the ER, subsequence pt was treated with IV Lasix. Pt's initial troponin is negative, EKG is without remarkable ST segment varies. CTA reveals no PE, mildly enlarged subcarinal lymph node, increased in size compared to the study of 2 months ago. Pt denies fever, chill , abdominal pain, nausea, vomiting, diarrhea. History - Past Medical History Cardiovascular: reports: Hypertension, Murmur Respiratory: reports: None Endocrine/Autoimmune: reports: None GI: reports: None : reports: Frequency, Other HEENT: reports: Chronic vision loss, Chronic hearing loss Psych: reports: Anxiety Musculoskeletal: reports: Gout Derm: reports: None MRSA Hx?: No Other Past Medical History: Lung Ca - Past Surgical History General: reports: Colonoscopy Cardiovascular: reports: Lobectomy HEENT: reports: Tonsil/Adenoidectomy - Family & Social History Family History: Mother: , Cancer, CVA/TIA, Father: , CAD, COPD/ Emphysema Family History Comment/Other: pt is living with his family in [facility]. Pt's two years ago. Pt had four children, all are living [facility]. Living arrangement: At home Living Situation: With family Social History Notes: Pt report he quitted cigarette smoking a long time ago, he wonders why he had lung cancer. Pt denies alcohol or drug issue. - Substance History Use: Uses substance without health or social issues: NONE Abuse: Recurrent use of substance despite neg consequences: NONE Dependence: Experiences withdrawal or developed tolerances: NONE - POLST POLST Status: DNR Meds/Allgy - Home Medications Home Medications: Ambulatory Orders Medication Instructions Recorded Confirmed Allopurinol [Zyloprim] 100 mg PO .EVERY OTHER DAY 07/25/16 01/27/18 Lisinopril 20 mg PO DAILY 07/25/16 01/27/18 Metoprolol Succinate 25 mg PO DAILY 07/25/16 01/27/18 Citalopram [CeleXA] 10 mg PO DAILY 01/26/18 01/26/18 Ferrous Sulfate 325 mg PO BID 01/26/18 01/27/18 Furosemide [Lasix] 20 mg PO ONCE 01/26/18 01/26/18 Gabapentin [Neurontin] 200 mg PO TID 01/26/18 01/26/18 Indomethacin 50 mg PO TID 01/26/18 01/26/18 Morphine ER [Ms Contin] 15 mg PO Q12H 01/26/18 01/26/18 Senna [Senokot] 1 tab PO DAILY PRN 01/26/18 01/27/18 oxyCODONE [Roxicodone] 5 mg PO Q4-6H 01/26/18 01/26/18 - Allergies Allergies/Adverse Reactions: Allergies Allergy/AdvReac Type Severity Reaction Status Date / Time No Known Drug Allergies Allergy Verified 01/26/18 14:51 Review of Systems - Constitutional Constitutional: reports: Fatigue. denies: Fever, Chills, Malaise - Eyes Eyes: denies: Pain, Irritation, Amaurosis, Blurred vision, Spots in vision, Field loss, Vision loss, Dipolpia, Corrective lenses - Ears, Nose & Throat Ears, Nose & Throat: denies: Ear pain, Hearing loss, Hearing aids, Tinnitus, Vertigo, Nasal pain, Nasal discharge, Nosebleeds, Nasal obstruction, Sore throat , Mouth lesions, Bleeding gums - Cardiovascular Cariovascular: reports: Edema, Exertional dyspnea, Decr. exercise tolerance. denies: Irregular heart rate, Palpitations, Chest pain, Lightheadedness, Syncope - Respiratory Respiratory: reports: SOB with exertion. denies: Cough, Sputum production, Wheezing, Snoring, Hemoptysis, Orthopnea, SOB at rest - Gastrointestinal Gastrointestinal: denies: Abdominal pain, Abdominal distention, Constipation, Diarrhea, Change in bowel habits, Rectal bleeding, Black stools, Bloody stools, Nausea, Vomiting, [place] blood emesis, Coffee grounds emesis, Reflux/heartburn, Bloating, Poor appetite - Genitourinary Genitourinary: denies: Dysuria, Frequency, Urgency, Hematuria, Incontinence, Flank pain, Nocturia, Urethral discharge - Musculoskeletal Musculoskeletal: reports: Gout. denies: Muscle pain, Back pain, Muscle aches, Stiffness, Limited range of motion, Muscle weakness, Joint pain - Integumentary Integumentary: denies: Rash, Pruritis, Lesions, Dryness, Lumps, Acne, Pigment changes, Nail changes - Neurological Neurological: reports: General weakness. denies: Focal weakness, Headache, Dizziness, Numbness, Memory problems, Pre-existing deficit, Abnormal gait, Seizures, Incoordination, Slurred speech - Psychiatric Psychiatric: denies: Depression, Anxiety, Suicidal, Delusions, Hallucinations, Homicidal - Endocrine Endocrine: denies: Polyuria, Polydypsia, Polyphagia, Intolerance to cold - Hematologic/Lymphatic Hematologic/Lymphatic: denies: Bruising, Petechiae, Blood clots, Lymphadenopathy , Bleeding tendencies Exam - Vital Signs Reviewed Vital Signs: Yes Vital Signs: Vital Signs x48h Temp Pulse Resp BP Pulse Ox 01/26/18 18:16 92 18 155/83 H 99 01/26/18 17:49 100 18 158/84 H 98 01/26/18 16:20 99 18 152/91 H 98 01/26/18 15:51 91 14 145/85 H 98 01/26/18 15:16 87 11 L 141/73 H 99 01/26/18 14:47 36.6 C 106 H 26 H 179/102 H 96 - Physical Exam General Appearance: positive: No acute distress, Alert. negative: Lethargic Eyes Bilateral: positive: Normal inspection, PERRL, No lid inflammation, Conjunctivae nml ENT: positive: ENT inspection nml, Pharynx nml, No signs of dehydration. negative: Purulent nasal drainage, Pharyngeal erythema, Oral lesions Neck: positive: Nml inspection, Thyroid nml, No JVD, Trachea midline. negative : Thyromegaly, Lymphadenopathy (R), Lymphadenopathy (L), Stiff neck, Swelling/ bruising, Tracheal deviation Respiratory: positive: Chest non-tender, No respiratory distress, Other (left upper lung sound reduced.). negative: Wheezes, Rales, Rhonchi Cardiovascular: positive: Regular rate & rhythm, No murmur, No gallop. negative : Irregularly irregular, Extrasystoles, Tachycardia, Bradycardia, Systolic murmur, Diastolic murmur Peripheral Pulses: positive: 2+ Abdomen: positive: Non-tender, No organomegaly, Nml bowel sounds, No distention. negative: Tenderness, Guarding, Rebound Back: positive: Nml inspection. negative: CVA tenderness (R), CVA tenderness (L ) Skin: positive: Color nml, No rash, Warm, Dry. negative: Cyanosis, Diaphoresis , Pallor, Skin rash Extremities: positive: Non-tender, Full ROM, Nml appearance. negative: Calf tenderness, Joint swelling, Jeff's sign/cords Neurologic/Psychiatric: positive: Oriented x3, Sensation nml, Mood/affect nml. negative: Sensory loss, Facial droop, Slurred/abnml speech, Depressed mood/ affect Conclusion/Plan - Problem List (1) Hyperkalemia Conclusion/Plan: Lab test reveals K is 6.1. Pt's Kidney function is fine, pt did have Lisinopril for HTN. pt complain of SOB, chest tightness, ER provider prescribe Calcium Gluconate already. Lasix IV recheck potassium daily lab and vital monitor tele monitor (2) Anasarca Conclusion/Plan: pt's renal function is fine, pt may present right heart failure. ECHO Lasix lab and vital, tele monitor (3) Dyspnea Qualifiers: Dyspnea type: shortness of breath Qualified Code(s): R06.02 - Shortness of breath; R06.00 - Dyspnea, unspecified; R06.01 - Orthopnea (4) Chest pain Conclusion/Plan: pt report his chest tightness, recurrence as before he had pre pt report initial Troponin and EKG are unremarkable continue Troponin serial EKG PRN tele, vital monitor Aspirin nitro PRN ECHO resume home Morphin meds Qualifiers: Chest pain type: other chest pain Qualified Code(s): R07.89 - Other chest pain; R07.8 - Other chest pain (5) Lung mass Conclusion/Plan: pt is status post lobedecdomy 3 weeks for lung cancer pain control, follow up out-pt oncologist (6) Anemia Conclusion/Plan: HGB 9.2, pt denies GI bleeding, it appear from pt's chronic illness and cancer, surgery blood loss anemia study resume Ferrous lab study, vital monitor (7) DVT prophylaxis Conclusion/Plan: SCD and Lovenox (8) Do not intubate, cardiopulmonary resuscitation (CPR)-only code status Conclusion/Plan: pt request DNR - Lab Results Fish Bones: 01/27/18 06:35 01/27/18 06:35 Core Measures - Anticipated LOS I expect patient to be DC'd or transferred within 96 hours.: Yes - DVT/VTE - Prophylaxis VTE/DVT Device ordered at admit?: Yes VTE/DVT Prophylaxis med ordered at admit?: Yes
[2018-01-26] MEDS ORDERED: oxyCODONE 5 MG TABLET PO SCH (19:00)
[2018-01-26] MEDS: METOPROLOL SUCCINATE 50 MG TABLET PO SCH (20:54)
[2018-01-26] MEDS: oxyCODONE 5 MG TABLET PO PRN (21:01)
[2018-01-26] MEDS: SODIUM CHLORIDE FLUSH 0.9% 10 ML SYRINGE IVP PRN (21:01)
[2018-01-26] MEDS: GABAPENTIN 100 MG CAPSULE PO SCH (21:02)
[2018-01-27] MEDS: SODIUM CHLORIDE FLUSH 0.9% 10 ML SYRINGE IVP SCH ×3 (00:22→16:02)
[2018-01-27] MEDS: oxyCODONE 5 MG TABLET PO PRN ×4 (04:47→19:55)
[2018-01-27] MEDS: GABAPENTIN 100 MG CAPSULE PO SCH ×3 (05:48→21:05)
[2018-01-27 06:44] LABS: BASOPHILS % (AUTO) 0.4 %; EOSINOPHILS # (AUTO) 0.4 10^3/uL (0.0-0.7); EOSINOPHILS % (AUTO) 4.5 %; HGB - HEMOGLOBIN 8.3 g/dL (14.0-18.0); LYMPHOCYTES # (AUTO) 0.4 10^3/uL (1.5-3.5); LYMPHOCYTES % (AUTO) 4.4 %; MEAN CORPUSCULAR HEMOGLOBIN 26.9 pg (27.0-31.0); MEAN CORPUSCULAR HGB CONC 32.6 g/dL (32.0-36.0); MEAN CORPUSCULAR VOLUME 82.5 fL (80.0-94.0); MEAN PLATELET VOLUME 6.5 fL (7.4-11.4); MONOCYTES # (AUTO) 0.6 10^3/uL (0.0-1.0); MONOCYTES % (AUTO) 6.3 %; NEUTROPHILS # (AUTO) 8.2 10^3/uL (1.5-6.6); NEUTROPHILS % (AUTO) 84.4 %; PLT - PLATELET COUNT 276 10^3/uL (130-450); RED CELL DISTRIBUTION WIDTH 14.5 % (12.0-15.0); WHITE BLOOD COUNT 9.7 x10^3/uL (4.8-10.8)
[2018-01-27 06:58] LABS: ALBUMIN 2.6 g/dL (3.2-5.5); ALBUMIN/GLOBULIN RATIO 0.7 (1.0-2.2); BILIRUBIN,TOTAL 0.8 mg/dL (0.2-1.0); CALCIUM 8.5 mg/dL (8.5-10.3); CREATININE 0.8 mg/dL (0.6-1.2); MAGNESIUM 1.8 mg/dL (1.7-2.8); PHOSPHORUS 4.2 mg/dL (2.5-4.6); TOTAL PROTEIN 6.1 g/dL (6.7-8.2)
[2018-01-27] MEDS ORDERED: cloNIDine 0.1 MG TABLET PO PRN (07:54)
[2018-01-27] MEDS: ACETAMINOPHEN 325 MG TABLET PO PRN ×3 (07:58→19:55)
[2018-01-27] MEDS ORDERED: FERROUS SULFATE 325 MG TABLET PO SCH (08:00)
[2018-01-27] MEDS: METOPROLOL SUCCINATE 50 MG TABLET PO SCH (08:01)
[2018-01-27] MEDS: POLYETHYLENE GLYCOL 3350 17 GM PACKET PO SCH (08:02)
[2018-01-27] MEDS: ENOXAPARIN 40 MG/0.4 ML SYRINGE SUBQ SCH (08:02)
[2018-01-27] MEDS: FAMOTIDINE 20 MG TABLET PO SCH (08:03)
[2018-01-27] MEDS: CITALOPRAM 10 MG TABLET PO SCH (08:03)
[2018-01-27 08:52] LABS: MEAN RETIC VALUE 111.3; RED BLOOD COUNT 3.19 10^6/uL (4.70-6.10)
[2018-01-27] MEDS ORDERED: LISINOPRIL 20 MG TABLET PO SCH (09:00)
[2018-01-27] MEDS ORDERED: FUROSEMIDE 40 MG/4 ML VIAL IVP SCH (09:00)
[2018-01-27] MEDS: ALLOPURINOL 100 MG TABLET PO SCH (09:09)
[2018-01-27] MEDS: MORPHINE ER 15 MG TABLET PO SCH ×2 (09:09→21:05)
[2018-01-27 09:18] LABS: % IRON SATURATION 7 % (20-50); IRON 18 ug/dL (45-182); TOTAL IRON BINDING CAPACITY 270 ug/dL (250-450); TRANSFERRIN 193 mg/dL (180-329)
[2018-01-27] MEDS ORDERED: NITROGLYCERIN SL 0.4 MG TABLET SL PRN (09:27)
[2018-01-27 09:30] LABS: FERRITIN 688.7 ng/mL (23.9-336.2)
[2018-01-27] MEDS ORDERED: ASPIRIN 325 MG TABLET PO SCH (10:00)
--- NOTE | 2018-01-27 12:53 | PROVIDER PROGRESS NOTE ---
Subjective - Prog Note Date Prog Note Date: 01/27/18 - Subjective Pt reports feeling: Improved Subjective: pt report he feels better and his breath is better than yesterday. Denies fever , chill, CP Current Medications - Current Medications Current Medications: Active Medications Acetaminophen (Tylenol) 650 mg PO Q4HR PRN PRN Reason: Pain 1 to 4 Last Admin: 01/27/18 07:58 Dose: 650 mg Allopurinol (Zyloprim) 100 mg PO DAILY [facility] Last Admin: 01/27/18 09:09 Dose: 100 mg Amlodipine Besylate (Norvasc) 5 mg PO DAILY [facility] Aspirin (Ecotrin) 81 mg PO DAILYWM [facility] Citalopram Hydrobromide (Celexa) 10 mg PO DAILY [facility] Last Admin: 01/27/18 08:03 Dose: 10 mg Clonidine HCl (Catapres) 0.1 mg PO BID PRN PRN Reason: Hypertensive Emergency Enoxaparin Sodium (Lovenox) 40 mg SUBQ DAILY [facility] Last Admin: 01/27/18 08:02 Dose: 40 mg Famotidine (Pepcid) 20 mg PO DAILY [facility] Last Admin: 01/27/18 08:03 Dose: 20 mg Ferrous Sulfate (Feosol) 325 mg PO BID [facility] Furosemide (Lasix Inj 20mg Vial) 20 mg IVP BIDDIURETIC [facility] Gabapentin (Neurontin) 200 mg PO TID [facility] Last Admin: 01/27/18 05:48 Dose: 200 mg Metoprolol Succinate (Toprol Xl) 25 mg PO DAILY [facility] Last Admin: 01/27/18 08:01 Dose: 25 mg Morphine Sulfate () 15 mg PO Q12H [facility] Last Admin: 01/27/18 09:09 Dose: 15 mg Nitroglycerin (Nitrostat) 0.4 mg SL Q5MIN PRN PRN Reason: Chest Pain Ondansetron HCl (Zofran Inj) 4 mg IVP Q6HR PRN PRN Reason: Nausea / Vomiting Oxycodone HCl (Roxicodone) 5 mg PO Q4H PRN PRN Reason: PAIN Last Admin: 01/27/18 10:00 Dose: 5 mg Polyethylene Glycol (Miralax) 17 gm PO DAILY [facility] Last Admin: 01/27/18 08:02 Dose: 17 gm Sodium Chloride (Normal Saline Flush 0.9%) 10 ml IVP PRN PRN PRN Reason: NEEDED PER PROVIDER ORDERS Last Admin: 01/26/18 21:01 Dose: 10 ml Sodium Chloride (Normal Saline Flush 0.9%) 10 ml IVP 0100,0900,1700 [facility] Last Admin: 01/27/18 08:03 Dose: 10 ml Allopurinol [Zyloprim] 100 mg PO .EVERY OTHER DAY 07/25/16 Lisinopril 20 mg PO DAILY 07/25/16 Metoprolol Succinate 25 mg PO DAILY 07/25/16 Citalopram [CeleXA] 10 mg PO DAILY 01/26/18 Ferrous Sulfate 325 mg PO BID 01/26/18 Furosemide [Lasix] 20 mg PO ONCE 01/26/18 Gabapentin [Neurontin] 200 mg PO TID 01/26/18 Indomethacin 50 mg PO TID 01/26/18 Morphine ER [Ms Contin] 15 mg PO Q12H 01/26/18 Senna [Senokot] 1 tab PO DAILY PRN 01/26/18 oxyCODONE [Roxicodone] 5 mg PO Q4-6H 01/26/18 Objective - Vital Signs/Intake & Output Reviewed Vital Signs: Yes Vital Signs: Vital Signs x48h Temp Pulse Resp BP Pulse Ox 01/27/18 08:00 36.5 C 84 16 153/77 H 98 Intake & Output: Intake & Output 01/24/18 01/25/18 01/26/18 01/27/18 23:59 23:59 23:59 23:59 Intake Total 270 360 Output Total 1400 1945 Balance -1130 -1585 - Objective General Appearance: positive: No acute distress, Alert. negative: Lethargic Eyes Bilateral: positive: Normal inspection, PERRL, No lid inflammation, Conjunctivae nml ENT: positive: ENT inspection nml, Pharynx nml, No signs of dehydration. negative: Purulent nasal drainage, Pharyngeal erythema, Oral lesions Neck: positive: Nml inspection, Thyroid nml, No JVD, Trachea midline. negative : Thyromegaly, Lymphadenopathy (R), Lymphadenopathy (L), Stiff neck, Carotid bruit, Swelling/bruising, Tracheal deviation Respiratory: positive: Chest non-tender, No respiratory distress, Breath sounds nml. negative: Wheezes, Rales, Rhonchi Cardiovascular: positive: Regular rate & rhythm, No murmur. negative: Irregularly irregular, Extrasystoles, Tachycardia, Bradycardia, Systolic murmur , Diastolic murmur Peripheral Pulses: 2+ Radial (R), 2+ Radial (L), 2+ Dorsalis pedis (R), 2+ Dorsalis pedis (L) Abdomen: positive: Non-tender, No organomegaly, Nml bowel sounds, No distention. negative: Tenderness, Guarding, Rebound Back: positive: Nml inspection. negative: CVA tenderness (R), CVA tenderness (L ) Skin: positive: Color nml, No rash, Warm, Dry. negative: Cyanosis, Diaphoresis , Pallor Extremities: positive: Non-tender, Full ROM, Nml appearance. negative: Calf tenderness, Joint swelling, Jeff's sign/cords Neurologic/Psychiatric: positive: Oriented x3, Sensation nml, Mood/affect nml. negative: Sensory loss, Facial droop, Slurred/abnml speech, Depressed mood/ affect - Lab Results Fish Bones: 01/27/18 06:35 01/27/18 06:35 Other Labs: Lab Results x24hrs 01/27/18 01/27/18 01/27/18 Range/Units 08:40 08:40 08:40 WBC (4.8-10.8) x10^3/uL RBC (4.70-6.10) 10^6/uL Hgb (14.0-18.0) g/dL Hct (42.0-52.0) % MCV (80.0-94.0) fL MCH (27.0-31.0) pg MCHC (32.0-36.0) g/dL RDW (12.0-15.0) % Plt Count (130-450) 10^3/uL MPV (7.4-11.4) fL Reticulocyte % (Auto) (0.5-2.3) % Neut # (1.5-6.6) 10^3/uL Lymph # (1.5-3.5) 10^3/uL [place] # (0.0-1.0) 10^3/uL Eos # (0.0-0.7) 10^3/uL Baso # (0.0-0.1) 10^3/uL Absolute Nucleated RBC x10^3/uL Nucleated RBC % /100WBC Absolute Retic (0.020-0.110) 10^6/uL Sodium (135-145) mmol/L Potassium (3.5-5.0) mmol/L Chloride (101-111) mmol/L Carbon Dioxide (21-32) mmol/L Anion Gap (6-13) BUN (6-20) mg/dL Creatinine (0.6-1.2) mg/dL Estimated GFR (MDRD) (>89) Glucose (70-100) mg/dL Calcium (8.5-10.3) mg/dL Phosphorus (2.5-4.6) mg/dL Magnesium (1.7-2.8) mg/dL Iron (45-182) ug/dL TIBC (250-450) ug/dL % Saturation (20-50) % Transferrin (180-329) mg/dL Ferritin 688.7 H (23.9-336.2) ng/mL Total Bilirubin (0.2-1.0) mg/dL AST (10-42) IU/L ALT (10-60) IU/L Alkaline Phosphatase (42-121) IU/L Lactate Dehydrogenase 171 (91-225) IU/L Troponin I < 0.04 (<0.49) ng/mL Total Protein (6.7-8.2) g/dL Albumin (3.2-5.5) g/dL Globulin (2.1-4.2) g/dL Albumin/Globulin Ratio (1.0-2.2) Vitamin B12 527 (180-914) pg/mL 01/27/18 01/27/18 01/27/18 Range/Units 08:40 08:40 06:35 WBC (4.8-10.8) x10^3/uL RBC 3.19 L (4.70-6.10) 10^6/uL Hgb (14.0-18.0) g/dL Hct (42.0-52.0) % MCV (80.0-94.0) fL MCH (27.0-31.0) pg MCHC (32.0-36.0) g/dL RDW (12.0-15.0) % Plt Count (130-450) 10^3/uL MPV (7.4-11.4) fL Reticulocyte % (Auto) 2.15 (0.5-2.3) % Neut # (1.5-6.6) 10^3/uL Lymph # (1.5-3.5) 10^3/uL [place] # (0.0-1.0) 10^3/uL Eos # (0.0-0.7) 10^3/uL Baso # (0.0-0.1) 10^3/uL Absolute Nucleated RBC x10^3/uL Nucleated RBC % /100WBC Absolute Retic 0.069 (0.020-0.110) 10^6/uL Sodium 134 L (135-145) mmol/L Potassium 5.1 H (3.5-5.0) mmol/L Chloride 96 L (101-111) mmol/L Carbon Dioxide 30 (21-32) mmol/L Anion Gap 8.0 (6-13) BUN 22 H (6-20) mg/dL Creatinine 0.8 (0.6-1.2) mg/dL Estimated GFR (MDRD) 94 (>89) Glucose 94 (70-100) mg/dL Calcium 8.5 (8.5-10.3) mg/dL Phosphorus 4.2 (2.5-4.6) mg/dL Magnesium 1.8 (1.7-2.8) mg/dL Iron 18 L (45-182) ug/dL TIBC 270 (250-450) ug/dL % Saturation 7 L (20-50) % Transferrin 193 (180-329) mg/dL Ferritin (23.9-336.2) ng/mL Total Bilirubin 0.8 (0.2-1.0) mg/dL AST 18 (10-42) IU/L ALT 10 (10-60) IU/L Alkaline Phosphatase 82 (42-121) IU/L Lactate Dehydrogenase (91-225) IU/L Troponin I (<0.49) ng/mL Total Protein 6.1 L (6.7-8.2) g/dL Albumin 2.6 L (3.2-5.5) g/dL Globulin 3.5 (2.1-4.2) g/dL Albumin/Globulin Ratio 0.7 L (1.0-2.2) Vitamin B12 (180-914) pg/mL 01/27/18 01/26/18 Range/Units 06:35 22:02 WBC 9.7 (4.8-10.8) x10^3/uL RBC 3.10 L (4.70-6.10) 10^6/uL Hgb 8.3 L (14.0-18.0) g/dL Hct 25.5 L (42.0-52.0) % MCV 82.5 (80.0-94.0) fL MCH 26.9 L (27.0-31.0) pg MCHC 32.6 (32.0-36.0) g/dL RDW 14.5 (12.0-15.0) % Plt Count 276 (130-450) 10^3/uL MPV 6.5 L (7.4-11.4) fL Reticulocyte % (Auto) (0.5-2.3) % Neut # 8.2 H (1.5-6.6) 10^3/uL Lymph # 0.4 L (1.5-3.5) 10^3/uL [place] # 0.6 (0.0-1.0) 10^3/uL Eos # 0.4 (0.0-0.7) 10^3/uL Baso # 0.0 (0.0-0.1) 10^3/uL Absolute Nucleated RBC 0.00 x10^3/uL Nucleated RBC % 0.0 /100WBC Absolute Retic (0.020-0.110) 10^6/uL Sodium (135-145) mmol/L Potassium 5.3 H (3.5-5.0) mmol/L Chloride (101-111) mmol/L Carbon Dioxide (21-32) mmol/L Anion Gap (6-13) BUN (6-20) mg/dL Creatinine (0.6-1.2) mg/dL Estimated GFR (MDRD) (>89) Glucose (70-100) mg/dL Calcium (8.5-10.3) mg/dL Phosphorus (2.5-4.6) mg/dL Magnesium (1.7-2.8) mg/dL Iron (45-182) ug/dL TIBC (250-450) ug/dL % Saturation (20-50) % Transferrin (180-329) mg/dL Ferritin (23.9-336.2) ng/mL Total Bilirubin (0.2-1.0) mg/dL AST (10-42) IU/L ALT (10-60) IU/L Alkaline Phosphatase (42-121) IU/L Lactate Dehydrogenase (91-225) IU/L Troponin I (<0.49) ng/mL Total Protein (6.7-8.2) g/dL Albumin (3.2-5.5) g/dL Globulin (2.1-4.2) g/dL Albumin/Globulin Ratio (1.0-2.2) Vitamin B12 (180-914) pg/mL ABX Reporting Has patient been on IV antibiotics over the past 48 hours?: No Assessment/Plan - Problem List (1) Hyperkalemia Impression: Conclusion/Plan: K=5.1 today, continue lower dosage IV of Lasix continue lab monitor Lab test reveals K is 6.1. Pt's Kidney function is fine, pt did have Lisinopril for HTN. pt complain of SOB, chest tightness, ER provider prescribe Calcium Gluconate already. Lasix IV recheck potassium daily lab and vital monitor tele monitor (2) Anasarca Conclusion/Plan: pt feels better, continue IV lower dosage Lasix monitor vital, lab pt's renal function is fine, pt may present right heart failure. ECHO Lasix lab and vital, tele monitor (3) Dyspnea pt feel better than yesterday. 98% Sats at 2 liter of O2 continue breath treatment as needed (4) Chest pain Conclusion/Plan: pt report no more chest tightness troponin test negative ECHO reveals normal EF and RV function. continue tele, vital monitor and treatment pt report his chest tightness, recurrence as before he had pre pt report initial Troponin and EKG are unremarkable continue Troponin serial EKG PRN tele, vital monitor Aspirin nitro PRN ECHO resume home Morphin meds Qualifiers: Chest pain type: other chest pain Qualified Code(s): R07.89 - Other chest pain; R07.8 - Other chest pain (5) Lung mass Conclusion/Plan: pt is status post lobedecdomy 3 weeks for lung cancer pain control, follow up out-pt oncologist (6) Anemia Conclusion/Plan: iron study reveals iron deficiency add iron daily lab monitor HGB 9.2, pt denies GI bleeding, it appear from pt's chronic illness and cancer, surgery blood loss anemia study resume Ferrous lab study, vital monitor (3) Dyspnea Qualifiers: Dyspnea type: shortness of breath Qualified Code(s): R06.02 - Shortness of breath; R06.00 - Dyspnea, unspecified; R06.01 - Orthopnea (4) Chest pain Qualifiers: Chest pain type: other chest pain Qualified Code(s): R07.89 - Other chest pain; R07.8 - Other chest pain
[2018-01-27] MEDS ORDERED: amLODIPine 5 MG TABLET PO SCH (13:00)
[2018-01-27] MEDS ORDERED: FUROSEMIDE 20 MG/2 ML VIAL IVP SCH (14:00)
[2018-01-27] MEDS: FERROUS SULFATE 325 MG TABLET PO SCH (21:05)
[2018-01-28] MEDS: SODIUM CHLORIDE FLUSH 0.9% 10 ML SYRINGE IVP SCH ×3 (05:10→16:53)
[2018-01-28] MEDS: oxyCODONE 5 MG TABLET PO PRN ×4 (05:11→20:57)
[2018-01-28] MEDS: GABAPENTIN 100 MG CAPSULE PO SCH ×3 (05:11→20:57)
[2018-01-28 05:23] LABS: BASOPHILS % (AUTO) 0.6 %; EOSINOPHILS # (AUTO) 0.5 10^3/uL (0.0-0.7); EOSINOPHILS % (AUTO) 5.6 %; HGB - HEMOGLOBIN 8.5 g/dL (14.0-18.0); LYMPHOCYTES # (AUTO) 0.7 10^3/uL (1.5-3.5); LYMPHOCYTES % (AUTO) 7.7 %; MEAN CORPUSCULAR HEMOGLOBIN 26.6 pg (27.0-31.0); MEAN CORPUSCULAR VOLUME 83.2 fL (80.0-94.0); MEAN PLATELET VOLUME 6.8 fL (7.4-11.4); MONOCYTES # (AUTO) 0.7 10^3/uL (0.0-1.0); MONOCYTES % (AUTO) 7.6 %; NEUTROPHILS # (AUTO) 6.9 10^3/uL (1.5-6.6); NEUTROPHILS % (AUTO) 78.5 %; PLT - PLATELET COUNT 287 10^3/uL (130-450); WHITE BLOOD COUNT 8.8 x10^3/uL (4.8-10.8)
[2018-01-28 05:34] LABS: ALBUMIN 2.7 g/dL (3.2-5.5); ALBUMIN/GLOBULIN RATIO 0.8 (1.0-2.2); BILIRUBIN,TOTAL 0.7 mg/dL (0.2-1.0); CALCIUM 8.7 mg/dL (8.5-10.3); CREATININE 0.8 mg/dL (0.6-1.2); TOTAL PROTEIN 6.1 g/dL (6.7-8.2)
[2018-01-28] MEDS: FUROSEMIDE 40 MG/4 ML VIAL IVP SCH ×3 (09:37→19:40)
[2018-01-28] MEDS: POLYETHYLENE GLYCOL 3350 17 GM PACKET PO SCH (09:37)
[2018-01-28] MEDS: ENOXAPARIN 40 MG/0.4 ML SYRINGE SUBQ SCH (09:38)
[2018-01-28] MEDS: CITALOPRAM 10 MG TABLET PO SCH (09:38)
[2018-01-28] MEDS: METOPROLOL SUCCINATE 50 MG TABLET PO SCH (09:38)
[2018-01-28] MEDS: FAMOTIDINE 20 MG TABLET PO SCH (09:39)
[2018-01-28] MEDS: MORPHINE ER 15 MG TABLET PO SCH ×2 (09:39→20:57)
[2018-01-28] MEDS: ALLOPURINOL 100 MG TABLET PO SCH (09:39)
[2018-01-28] MEDS: ASPIRIN EC 81 MG TABLET PO SCH (09:39)
[2018-01-28] MEDS: FERROUS SULFATE 325 MG TABLET PO SCH ×2 (09:40→20:57)
[2018-01-28] MEDS ORDERED: GI COCKTAIL 120 ML BOTTLE PO PRN (11:31)
[2018-01-28] MEDS: LORazepam 0.5 MG TABLET PO PRN (11:51)
[2018-01-28] MEDS ORDERED: FUROSEMIDE 40 MG TABLET PO SCH (12:00)
--- NOTE | 2018-01-28 16:49 | PROVIDER PROGRESS NOTE ---
Subjective - Prog Note Date Prog Note Date: 01/28/18 Prog Note Time: 09:00 - Subjective Pt reports feeling: Improved Subjective: Jet admits to gradual improvement of his BLE edema, but notes his frustration with ongoing weakness. He denies N/V, dysuria, or a worsening cough. He admits to "heaviness in his chest". This is described as resolving upon standing, comes and goes and was relieved completely after being prescribed a GI cocktail. Current Medications - Current Medications Current Medications: Active Medications Acetaminophen (Tylenol) 650 mg PO Q4HR PRN PRN Reason: Pain 1 to 4 Last Admin: 01/28/18 18:07 Dose: 650 mg Allopurinol (Zyloprim) 100 mg PO DAILY [facility] Last Admin: 01/28/18 09:39 Dose: 100 mg Aspirin (Ecotrin) 81 mg PO DAILYWM [facility] Last Admin: 01/28/18 09:39 Dose: 81 mg Citalopram Hydrobromide (Celexa) 10 mg PO DAILY [facility] Last Admin: 01/28/18 09:38 Dose: 10 mg Clonidine HCl (Catapres) 0.1 mg PO BID PRN PRN Reason: Hypertensive Emergency Enoxaparin Sodium (Lovenox) 40 mg SUBQ DAILY [facility] Last Admin: 01/28/18 09:38 Dose: 40 mg Famotidine (Pepcid) 20 mg PO DAILY [facility] Last Admin: 01/28/18 09:39 Dose: 20 mg Ferrous Sulfate (Feosol) 325 mg PO BID [facility] Last Admin: 01/28/18 09:40 Dose: 325 mg Furosemide (Lasix Inj 40 Mg Vial) 40 mg IVP BIDDIURETIC [facility] Gabapentin (Neurontin) 200 mg PO TID [facility] Last Admin: 01/28/18 16:59 Dose: 200 mg Lidocaine HCl (Xylocaine Uro-Jet 2%) 2.5 ml UR Q4H PRN PRN Reason: PAIN Lorazepam (Ativan) 0.5 mg PO Q6H PRN PRN Reason: Anxiety Last Admin: 01/28/18 11:51 Dose: 0.5 mg Metoprolol Succinate (Toprol Xl) 25 mg PO DAILY [facility] Last Admin: 01/28/18 09:38 Dose: 25 mg Morphine Sulfate () 15 mg PO Q12H [facility] Last Admin: 01/28/18 09:39 Dose: 15 mg Multi-Ingredient Mouthwash/Gargle () 30 ml PO Q8H PRN PRN Reason: Heartburn Last Admin: 01/28/18 11:48 Dose: 30 ml Nitroglycerin (Nitrostat) 0.4 mg SL Q5MIN PRN PRN Reason: Chest Pain Ondansetron HCl (Zofran Inj) 4 mg IVP Q6HR PRN PRN Reason: Nausea / Vomiting Oxycodone HCl (Roxicodone) 5 mg PO Q4H PRN PRN Reason: PAIN Last Admin: 01/28/18 16:58 Dose: 5 mg Polyethylene Glycol (Miralax) 17 gm PO DAILY [facility] Last Admin: 01/28/18 09:37 Dose: 17 gm Sodium Chloride (Normal Saline Flush 0.9%) 10 ml IVP PRN PRN PRN Reason: NEEDED PER PROVIDER ORDERS Last Admin: 01/26/18 21:01 Dose: 10 ml Sodium Chloride (Normal Saline Flush 0.9%) 10 ml IVP 0100,0900,1700 [facility] Last Admin: 01/28/18 16:53 Dose: Not Given Allopurinol [Zyloprim] 100 mg PO .EVERY OTHER DAY 07/25/16 Lisinopril 20 mg PO DAILY 07/25/16 Metoprolol Succinate 25 mg PO DAILY 07/25/16 Citalopram [CeleXA] 10 mg PO DAILY 01/26/18 Ferrous Sulfate 325 mg PO BID 01/26/18 Furosemide [Lasix] 20 mg PO ONCE 01/26/18 Gabapentin [Neurontin] 200 mg PO TID 01/26/18 Indomethacin 50 mg PO TID 01/26/18 Morphine ER [Ms Contin] 15 mg PO Q12H 01/26/18 Senna [Senokot] 1 tab PO DAILY PRN 01/26/18 oxyCODONE [Roxicodone] 5 mg PO Q4-6H 01/26/18 Objective - Vital Signs/Intake & Output Reviewed Vital Signs: Yes Vital Signs: Vital Signs x48h Temp Pulse Resp BP Pulse Ox 01/28/18 15:56 36.5 C 90 18 124/64 99 Intake & Output: Intake & Output 01/25/18 01/26/18 01/27/18 01/28/18 23:59 23:59 23:59 23:59 Intake Total 270 1080 840 Output Total 6681 9234 725 Balance -1130 -865 115 - Objective General Appearance: positive: Alert, Moderate distress, Anxious Eyes Bilateral: positive: Normal inspection, No scleral icterus Eyes: OU Conjunctivae pale ENT: positive: ENT inspection nml, Pharynx nml, Pharyngeal erythema, Dry mucous membranes Neck: positive: Nml inspection, Thyroid nml, No JVD, Trachea midline Respiratory: positive: Chest non-tender, No respiratory distress, Other ( diminished. Post lobectomy left posterior insicion- CDI.) Cardiovascular: positive: Regular rate & rhythm, No gallop, Systolic murmur, Decreased pulse(s) Peripheral Pulses: 1+ Radial (R), 1+ Radial (L) Abdomen: positive: Non-tender, Nml bowel sounds, Other (obese, increased abdominal girth.) Back: positive: CVA tenderness (L) (post-op lobectomy- inscision.) Skin: positive: No rash, Warm, Dry, Pallor Extremities: positive: Non-tender, Pedal edema (mild pitting, LAURIE hose, elevation.), Joint swelling Neurologic/Psychiatric: positive: Oriented x3, CN's nml (2-12), Motor nml, Sensation nml, Weakness, Sensory loss, Depressed mood/affect Reflexes: Bicep (R): 2+, Bicep (L): 2+ - Lab Results Fish Bones: 01/28/18 04:54 01/28/18 04:54 Other Labs: Lab Results x24hrs 01/28/18 01/28/18 Range/Units 04:54 04:54 WBC 8.8 (4.8-10.8) x10^3/uL RBC 3.20 L (4.70-6.10) 10^6/uL Hgb 8.5 L (14.0-18.0) g/dL Hct 26.6 L (42.0-52.0) % MCV 83.2 (80.0-94.0) fL MCH 26.6 L (27.0-31.0) pg MCHC 32.0 (32.0-36.0) g/dL RDW 14.0 (12.0-15.0) % Plt Count 287 (130-450) 10^3/uL MPV 6.8 L (7.4-11.4) fL Neut # 6.9 H (1.5-6.6) 10^3/uL Lymph # 0.7 L (1.5-3.5) 10^3/uL [place] # 0.7 (0.0-1.0) 10^3/uL Eos # 0.5 (0.0-0.7) 10^3/uL Baso # 0.0 (0.0-0.1) 10^3/uL Absolute Nucleated RBC 0.00 x10^3/uL Nucleated RBC % 0.0 /100WBC Sodium 134 L (135-145) mmol/L Potassium 4.8 (3.5-5.0) mmol/L Chloride 95 L (101-111) mmol/L Carbon Dioxide 32 (21-32) mmol/L Anion Gap 7.0 (6-13) BUN 22 H (6-20) mg/dL Creatinine 0.8 (0.6-1.2) mg/dL Estimated GFR (MDRD) 94 (>89) Glucose 93 (70-100) mg/dL Calcium 8.7 (8.5-10.3) mg/dL Total Bilirubin 0.7 (0.2-1.0) mg/dL AST 18 (10-42) IU/L ALT 10 (10-60) IU/L Alkaline Phosphatase 81 (42-121) IU/L Total Protein 6.1 L (6.7-8.2) g/dL Albumin 2.7 L (3.2-5.5) g/dL Globulin 3.4 (2.1-4.2) g/dL Albumin/Globulin Ratio 0.8 L (1.0-2.2) - Diagnostic Imaging Diagnostic Imaging Results: positive: Final report reviewed ABX Reporting Has patient been on IV antibiotics over the past 48 hours?: No Assessment/Plan - Problem List (1) Hyperkalemia Impression: The patient had an elevated K+ upon admission of 6.1, and today this is improved to 4.8. He was also found to have NOEMI, that is now resolved. Plan: Continue to monitor and give IV lasix. (2) Anasarca Impression: The patient was found to have gross, pitting edema in BLE that has been getting progressively worse leading up to admission. Today, this edema is better managed and is barely pitting at the thigh level. He continues to require oxygen and is found to have a large abdominal girth. Plan: Continue IV treatment of lasix that is based on a lower than expected urine out put. (3) Anxiety Impression: The patient states that he found "the anxiety pill" prescribed upon admission to be very helpful. He is not accustomed to this level of debility and is overwhelmed by his recent medical illnesses. He states that he is not sleeping well lately. He is prescribed Citalopram at home, which has been continued here. Plan: Continue to monitor overall mental state and give 0.5mg PO lorazepam as needed. (4) Hypertension Impression: The patient has a known history of this and is prescribed metoprolol and lisinopril at home. Lisinopril continues to be on hold due to NOEMI. The latest blood pressure was 124/64. Plan: Continue to monitor and give additional agents if needed. Qualifiers: Hypertension type: essential hypertension Qualified Code(s): I10 - Essential (primary) hypertension (5) Diastolic dysfunction Impression: An echocardiogram was completed on 01/26/18 and shows an abnormal degree of diastolic function. He has evidence of this with his anasarca and rounded, increased abdominal girth. Plan: Continue IV lasix, daily weights. (6) Generalized weakness Impression: The patient is likely generally weak due to an excess of fluid that has led up to this admission. He may require a short rehab stay due to this. Plan: Continue frequent nursing cares and physical therapy. (7) Anemia Impression: The patient was found to be anemic upon admission and today had an H/H of 8.5/ 26.6. He did not receive any blood products for this hospital stay. Plan: Check daily labs. (8) Status post lobectomy of lung Impression: The patient remains with a unremarkable left upper posterior chest and left flank incision that appears clean, dry and intact. Plan: Continue to monitor and provide supplemental oxygen. (9) Lung cancer Impression: The patient is now post op left lung lobectomy for lung CA. Plan: Continue to monitor. Qualifiers: Laterality: left
[2018-01-28] MEDS: ACETAMINOPHEN 325 MG TABLET PO PRN (18:07)
[2018-01-28] MEDS ORDERED: LIDOCAINE 2% URO-JET 5 ML SYRINGE UR PRN (19:17)
[2018-01-28] MEDS: SODIUM CHLORIDE FLUSH 0.9% 10 ML SYRINGE IVP PRN (19:40)
[2018-01-29] MEDS: oxyCODONE 5 MG TABLET PO PRN ×2 (04:38→10:01)
[2018-01-29 06:10] LABS: BASOPHILS % (AUTO) 0.4 %; EOSINOPHILS # (AUTO) 0.5 10^3/uL (0.0-0.7); HGB - HEMOGLOBIN 8.4 g/dL (14.0-18.0); LYMPHOCYTES # (AUTO) 0.6 10^3/uL (1.5-3.5); LYMPHOCYTES % (AUTO) 7.5 %; MEAN CORPUSCULAR HEMOGLOBIN 26.8 pg (27.0-31.0); MEAN CORPUSCULAR HGB CONC 32.5 g/dL (32.0-36.0); MEAN CORPUSCULAR VOLUME 82.7 fL (80.0-94.0); MEAN PLATELET VOLUME 6.7 fL (7.4-11.4); MONOCYTES # (AUTO) 0.7 10^3/uL (0.0-1.0); MONOCYTES % (AUTO) 9.4 %; NEUTROPHILS # (AUTO) 5.8 10^3/uL (1.5-6.6); NEUTROPHILS % (AUTO) 76.7 %; PLT - PLATELET COUNT 292 10^3/uL (130-450); RED BLOOD COUNT 3.14 10^6/uL (4.70-6.10); RED CELL DISTRIBUTION WIDTH 14.6 % (12.0-15.0); WHITE BLOOD COUNT 7.6 x10^3/uL (4.8-10.8)
[2018-01-29] MEDS: SODIUM CHLORIDE FLUSH 0.9% 10 ML SYRINGE IVP PRN (06:18)
[2018-01-29] MEDS: GABAPENTIN 100 MG CAPSULE PO SCH ×3 (06:18→21:22)
[2018-01-29] MEDS: FUROSEMIDE 40 MG/4 ML VIAL IVP SCH ×2 (06:18→14:00)
[2018-01-29] MEDS: SODIUM CHLORIDE FLUSH 0.9% 10 ML SYRINGE IVP SCH ×3 (06:18→20:00)
[2018-01-29 06:26] LABS: ALBUMIN 2.7 g/dL (3.2-5.5); ALBUMIN/GLOBULIN RATIO 0.8 (1.0-2.2); ALKALINE PHOSPHATASE 82 IU/L (42-121); ALT ALANINE AMINOTRANSFERASE < 10 IU/L (10-60); AST ASPARTATE AMINOTRANSFERASE 18 IU/L (10-42); BILIRUBIN,TOTAL 0.7 mg/dL (0.2-1.0); BUN - BLOOD UREA NITROGEN 20 mg/dL (6-20); CALCIUM 8.6 mg/dL (8.5-10.3); CARBON DIOXIDE - CO2 33 mmol/L (21-32); CHLORIDE 95 mmol/L (101-111); CREATININE 0.9 mg/dL (0.6-1.2); GFR - MDRD 82 (>89); GLUCOSE 93 mg/dL (70-100); MAGNESIUM 1.7 mg/dL (1.7-2.8); SODIUM 135 mmol/L (135-145)
[2018-01-29] MEDS: FERROUS SULFATE 325 MG TABLET PO SCH ×2 (08:10→21:22)
[2018-01-29] MEDS: MORPHINE ER 15 MG TABLET PO SCH ×2 (08:11→21:21)
[2018-01-29] MEDS: ALLOPURINOL 100 MG TABLET PO SCH (08:12)
[2018-01-29] MEDS: POLYETHYLENE GLYCOL 3350 17 GM PACKET PO SCH (08:12)
[2018-01-29] MEDS: CITALOPRAM 10 MG TABLET PO SCH (08:13)
[2018-01-29] MEDS: METOPROLOL SUCCINATE 50 MG TABLET PO SCH (08:13)
[2018-01-29] MEDS: ASPIRIN EC 81 MG TABLET PO SCH (08:13)
[2018-01-29] MEDS: FAMOTIDINE 20 MG TABLET PO SCH (08:15)
[2018-01-29] MEDS: ENOXAPARIN 40 MG/0.4 ML SYRINGE SUBQ SCH (08:15)
[2018-01-29] MEDS ORDERED: A & D OINTMENT 5 GM PACKET TOP PRN (09:11)
[2018-01-29] MEDS ORDERED: IPRATROPIUM/ALBUTEROL 3 ML NEB INH PRN (09:16)
[2018-01-29] MEDS: SODIUM CHLORIDE 0.65% NASAL SPRAY NAS SCH ×3 (10:00→21:22)
--- NOTE | 2018-01-29 10:27 | XRAY Report ---
FRONTAL CHEST: 01/29/2018 CLINICAL INDICATION: Left chest pain. COMPARISON: 01/26/2018. FINDINGS: Frontal view of the chest demonstrates postoperative changes of left lobectomy. Residual loculated pneumothorax appears unchanged. Left rib fractures are unchanged. Right jugular port is stable. The right lung is clear. No right effusion or pneumothorax is seen. IMPRESSION: STABLE POSTOPERATIVE CHANGES IN THE LEFT CHEST. TD: 01/29/2018 10:12
--- NOTE | 2018-01-29 10:44 | PROVIDER PROGRESS NOTE ---
Subjective - Prog Note Date Prog Note Date: 01/29/18 Prog Note Time: 10:43 - Subjective Pt reports feeling: No change Subjective: Jet complains of discomfort in the tops of his ears due to ongoing oxygen use and ongoing post-op left flank pain. He denies SOB, chest pain, N/V or a new cough. Objective - Vital Signs/Intake & Output Reviewed Vital Signs: Yes Vital Signs: Vital Signs x48h Temp Pulse Resp BP Pulse Ox 01/29/18 08:00 36.2 C L 107 H 18 141/79 H 93 Intake & Output: Intake & Output 01/26/18 01/27/18 01/28/18 01/29/18 23:59 23:59 23:59 23:59 Intake Total 270 1080 1200 320 Output Total 1400 1945 1974 2009 Balance -1130 -865 -775 -1690 - Objective General Appearance: positive: No acute distress, Alert, Moderate distress Eyes Bilateral: positive: Normal inspection, PERRL Eyes: OU Conjunctivae pale ENT: positive: ENT inspection nml, Pharynx nml, Dry mucous membranes Neck: positive: Nml inspection, Thyroid nml, No JVD, Trachea midline Respiratory: positive: Chest non-tender, No respiratory distress, Other ( diminished with scattered crackles.) Cardiovascular: positive: Regular rate & rhythm, No gallop, Systolic murmur, Decreased pulse(s) Peripheral Pulses: 2+ Radial (R), 2+ Radial (L) Abdomen: positive: Non-tender, Nml bowel sounds, Other (rounded, soft) Back: positive: Nml inspection Skin: positive: No rash, Warm, Dry, Pallor Extremities: positive: Non-tender, Pedal edema (mild BLE), Joint swelling Neurologic/Psychiatric: positive: Oriented x3, CN's nml (2-12), Motor nml, Sensation nml, Depressed mood/affect Reflexes: Bicep (R): 3+, Bicep (L): 3+ - Lab Results Fish Bones: 01/30/18 05:15 01/30/18 05:15 Other Labs: Lab Results x24hrs 01/29/18 01/29/18 01/29/18 Range/Units 05:25 05:25 05:25 WBC 7.6 (4.8-10.8) x10^3/uL RBC 3.14 L (4.70-6.10) 10^6/uL Hgb 8.4 L (14.0-18.0) g/dL Hct 25.9 L (42.0-52.0) % MCV 82.7 (80.0-94.0) fL MCH 26.8 L (27.0-31.0) pg MCHC 32.5 (32.0-36.0) g/dL RDW 14.6 (12.0-15.0) % Plt Count 292 (130-450) 10^3/uL MPV 6.7 L (7.4-11.4) fL Neut # 5.8 (1.5-6.6) 10^3/uL Lymph # 0.6 L (1.5-3.5) 10^3/uL [place] # 0.7 (0.0-1.0) 10^3/uL Eos # 0.5 (0.0-0.7) 10^3/uL Baso # 0.0 (0.0-0.1) 10^3/uL Absolute Nucleated RBC 0.00 x10^3/uL Nucleated RBC % 0.0 /100WBC Sodium 135 (135-145) mmol/L Potassium 4.6 (3.5-5.0) mmol/L Chloride 95 L (101-111) mmol/L Carbon Dioxide 33 H (21-32) mmol/L Anion Gap 7.0 (6-13) BUN 20 (6-20) mg/dL Creatinine 0.9 (0.6-1.2) mg/dL Estimated GFR (MDRD) 82 L (>89) Glucose 93 (70-100) mg/dL Calcium 8.6 (8.5-10.3) mg/dL Magnesium 1.7 (1.7-2.8) mg/dL Total Bilirubin 0.7 (0.2-1.0) mg/dL AST 18 (10-42) IU/L ALT < 10 L (10-60) IU/L Alkaline Phosphatase 82 (42-121) IU/L B-Natriuretic Peptide 220 H (5-100) pg/mL Total Protein 6.0 L (6.7-8.2) g/dL Albumin 2.7 L (3.2-5.5) g/dL Globulin 3.3 (2.1-4.2) g/dL Albumin/Globulin Ratio 0.8 L (1.0-2.2) - Diagnostic Imaging Diagnostic Imaging Results: positive: Final report reviewed ABX Reporting Has patient been on IV antibiotics over the past 48 hours?: No Assessment/Plan - Problem List (1) Hyperkalemia Impression: The patient had an elevated K+ upon admission of 6.1, and today this is improved to 4.6. He was also found to have NOEMI, that is now resolved. Plan: Continue to monitor and give IV lasix. (2) Anasarca Impression: The patient was found to have gross, pitting edema in BLE that has been getting progressively worse leading up to admission. The edema has been improving each day. He continues to require oxygen and is found to have a rounded abdomen. Plan: Continue IV treatment of lasix. (3) Lung cancer Impression: The patient is now post op left lung lobectomy for lung CA. Dr. Roney Mullen performed this on 01/13/18, and I will attempt to contact him prior to discharge home for thoughts on post-op expected course. Plan: Continue to monitor. Qualifiers: Laterality: left (4) Hypertension Impression: The patient has a known history of this and is prescribed metoprolol and lisinopril at home. Lisinopril continues to be on hold due to NOEMI and will be resumed at discharge. The latest blood pressure was 134/70 today. Plan: Continue to monitor and give additional agents if needed. Qualifiers: Hypertension type: essential hypertension Qualified Code(s): I10 - Essential (primary) hypertension (5) Diastolic dysfunction Impression: An echocardiogram was completed on 01/26/18 and shows an abnormal degree of diastolic function. He has evidence of this with his anasarca and rounded, increased abdominal girth. Plan: Continue IV lasix, daily weights. (6) Anemia Impression: The patient was found to be anemic upon admission and today had an H/H of 8.4/ 25.9. He did not receive any blood products for this hospital stay. Plan: Check daily labs. (7) Status post lobectomy of lung Impression: The patient remains with a unremarkable left upper posterior chest and left flank incision that appears clean, dry and intact. Plan: Continue to monitor and provide supplemental oxygen. (8) Generalized weakness Impression: The patient is likely generally weak due to an excess of fluid that has led up to this admission. He has demonstrated improved ambulation with our nursing staff. Plan: Continue frequent nursing cares and physical therapy. (9) Anxiety Impression: The patient states that he found "the anxiety pill" prescribed upon admission to be very helpful. He is not accustomed to this level of debility and is overwhelmed by his recent medical illnesses. He states that he is not sleeping well lately. He is prescribed Citalopram at home, which has been continued here. Plan: Continue to monitor overall mental state and give 0.5mg PO lorazepam as needed. (10) Post-op pain Impression: The patient had a left lung lobectomy on 01/13/18 and had a chest tube for only a few days post-op. Both incisions appear healthy and healing nicely, but the patient lists this post-op pain as his #1 complaint. Plan: Contact this CV surgeon as to their recommendations and discuss normal healing progression and expected pain. The patient has had an extended hospital stay that was not anticipated due to a combination of ongoing post-op pain from his left posterior chest, overall weakness/fatigue and the fluid balance issues. It is expected that he will be discharged by tomorrow as both of these issues are improved.
[2018-01-29] MEDS: IPRATROPIUM/ALBUTEROL 3 ML NEB INH SCH (11:13)
[2018-01-29] MEDS: LORazepam 0.5 MG TABLET PO PRN (21:26)
[2018-01-30] MEDS: IPRATROPIUM/ALBUTEROL 3 ML NEB INH SCH ×2 (00:06→08:14)
[2018-01-30] MEDS: SODIUM CHLORIDE FLUSH 0.9% 10 ML SYRINGE IVP SCH (05:23)
[2018-01-30] MEDS: SODIUM CHLORIDE FLUSH 0.9% 10 ML SYRINGE IVP PRN (05:23)
[2018-01-30] MEDS: FUROSEMIDE 40 MG/4 ML VIAL IVP SCH (05:24)
[2018-01-30] MEDS: oxyCODONE 5 MG TABLET PO PRN (05:24)
[2018-01-30] MEDS: GABAPENTIN 100 MG CAPSULE PO SCH (05:24)
[2018-01-30] MEDS: SODIUM CHLORIDE 0.65% NASAL SPRAY NAS SCH (05:25)
[2018-01-30 06:15] LABS: BASOPHILS % (AUTO) 0.2 %; EOSINOPHILS # (AUTO) 0.3 10^3/uL (0.0-0.7); HGB - HEMOGLOBIN 8.6 g/dL (14.0-18.0); LYMPHOCYTES # (AUTO) 0.7 10^3/uL (1.5-3.5); LYMPHOCYTES % (AUTO) 6.6 %; MEAN CORPUSCULAR HEMOGLOBIN 26.6 pg (27.0-31.0); MEAN CORPUSCULAR HGB CONC 32.3 g/dL (32.0-36.0); MEAN CORPUSCULAR VOLUME 82.3 fL (80.0-94.0); MEAN PLATELET VOLUME 6.9 fL (7.4-11.4); MONOCYTES % (AUTO) 9.7 %; NEUTROPHILS % (AUTO) 80.5 %; PLT - PLATELET COUNT 315 10^3/uL (130-450); RED BLOOD COUNT 3.22 10^6/uL (4.70-6.10); RED CELL DISTRIBUTION WIDTH 14.8 % (12.0-15.0)
[2018-01-30 06:24] LABS: ALBUMIN 2.9 g/dL (3.2-5.5); ALBUMIN/GLOBULIN RATIO 0.8 (1.0-2.2); ALKALINE PHOSPHATASE 83 IU/L (42-121); ALT ALANINE AMINOTRANSFERASE < 10 IU/L (10-60); AST ASPARTATE AMINOTRANSFERASE 23 IU/L (10-42); BILIRUBIN,TOTAL 0.6 mg/dL (0.2-1.0); BUN - BLOOD UREA NITROGEN 21 mg/dL (6-20); CALCIUM 8.6 mg/dL (8.5-10.3); CARBON DIOXIDE - CO2 34 mmol/L (21-32); CHLORIDE 92 mmol/L (101-111); CREATININE 0.9 mg/dL (0.6-1.2); GFR - MDRD 82 (>89); GLUCOSE 103 mg/dL (70-100); MAGNESIUM 1.9 mg/dL (1.7-2.8); SODIUM 133 mmol/L (135-145); TOTAL PROTEIN 6.4 g/dL (6.7-8.2)
[2018-01-30] MEDS: POLYETHYLENE GLYCOL 3350 17 GM PACKET PO SCH (10:40)
[2018-01-30] MEDS: METOPROLOL SUCCINATE 50 MG TABLET PO SCH (10:42)
[2018-01-30] MEDS: FAMOTIDINE 20 MG TABLET PO SCH (10:43)
[2018-01-30] MEDS: CITALOPRAM 10 MG TABLET PO SCH (10:43)
[2018-01-30] MEDS: ASPIRIN EC 81 MG TABLET PO SCH (10:44)
[2018-01-30] MEDS: ALLOPURINOL 100 MG TABLET PO SCH (10:44)
[2018-01-30] MEDS: FERROUS SULFATE 325 MG TABLET PO SCH (10:45)
[2018-01-30] MEDS: ENOXAPARIN 40 MG/0.4 ML SYRINGE SUBQ SCH (10:45)
[2018-01-30] MEDS: MORPHINE ER 15 MG TABLET PO SCH (10:45)
[2018-01-30] MEDS: LORazepam 0.5 MG TABLET PO PRN (10:52)
--- NOTE | 2018-01-30 12:21 | Discharge Plan ---
Discharge Plan Disposition: Home, Self Care Condition: Good Prescriptions: Acetaminophen [Tylenol Extra Strength] 1,000 mg PO TID #90 tablet Furosemide 40 mg PO BID #60 tablet LORazepam [Ativan] 0.5 mg PO Q6H PRN #20 tablet PRN Reason: Anxiety Potassium Chloride [Klor-Con 10] 10 meq PO DAILY #90 tablet.er Diet: Regular (High protein) Activity Restrictions: Activity as Tolerated Shower Restrictions: No Driving Restrictions: Yes Weight Bearing: Full Weight Additional Instructions or Follow Up instructions: You were admitted for increased edema and elevated potassium. The extra fluid gradually became better; as evidenced by a follow up x-ray that showed a resolution of right lung pleural effusion, less swelling in your legs, and slightly less abdominal edema. You were given aggressive IV diuretics that will continue in an oral form at home for 7 days twice per day, then reduced to just once per day. You should also take a potassium supplement at 40Meq x 7 days, then down to just 20Meq there after. Your kidney function has improved and you have a normal creatinine. Imaging was completed as part of the kidney work up and I spoke with Dr. Montes, the radiologist who determined that there was no apparent kidney damage due to obstruction or blood flow to your kidneys. Your albumin level is low making extra fluid not as likely to stay within your vessels, which does not help with your edema issues. You should avoid salt and maintain a high protein diet. A walking oxygen saturation test is ordered and results are pending. Shortly after you were admitted, you complained of chest pain that went away after you were given a GI cocktail and a small dose of lorazepam. I have prescribed a short coarse of Lorazepam at home. Your surgeon was called regarding expected post-op pain. He was happy for the call and knew you well. He was not surprised that you continue to have pain, but remembered that your pre-op pain was much worse. He would like you to take tylenol every 8 hours 1000mg at a time, scheduled. You should follow up with your PCP within one week due to your fluid balance problems. No Smoking: If you smoke, Please STOP! Call for help. Follow-up with: Krissy Cornejo PA-C [Primary Care Provider] -
--- NOTE | 2018-01-30 12:58 | DISCHARGE SUMMARY ---
Discharge Summary Admit Date: 01/26/18 Discharge Date: 01/30/18 Discharging Provider: CAMERON Padilla Primary Care Provider: Krissy Cornejo Code Status: Do Not Attempt Resuscitation Condition at Discharge: Good Discharge Disposition: [facility] - DIAGNOSES Admission Diagnoses: Hyperkalemia (E87.5) Anasarca (R60.1) Lung cancer (C34.90) Other specified postprocedural states (Z98.890) HTN (hypertension) (I10) Discharge Diagnoses with Status of Each Condition: Hyperkalemia (E87.5)-resolved. Anasarca (R60.1) -resolved. Lung cancer (C34.90) -ongoing, stable and now post-op. HTN (hypertension) (I10) -chronic, stable. Diastolic dysfunction (I51.9) chronic, stable. Anemia (D64.9) -chronic, patient continues on iron supplement. 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 Post op since 01/13/18. Generalized weakness (R53.1) improved, and expected to normalize. Anxiety (F41.9) -remained on antidepressant, now sent home with a short course of lorazepam. Post-op pain (G89.18) -chronic, stable. APAP to continue. Hypoalbuminemia (E88.09)- new on this admission, encouraged to eat more protein. 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 Mullen on [facility] on 01/13/18. Pt was discharged on 01/18/18 from that surgery. The patient developed severe lower extremity edema and generalized weakness, and was re-admitted on [facility] from 01/20/18 to 01/22/18, in which he was treated for acute gout causing right knee pain and given gentle diuretics. He was prescribed furosemide 20mg PO daily. Prior to this admission the patient had progressive edema, and the daughter states that he was not urinating. His presentation to the ED included complaints of; shortness of breath, bilateral edema, and chest tightness. Potassium was at 6.1 in the ER, and was given IV Lasix. Patient's initial troponin was negative, EKG is without remarkable ST segment varies. CTA reveals no PE, mildly enlarged subcarinal lymph node, increased in size compared to the study of 2 months ago. Patient denies fevers, chills, abdominal pain, nausea, vomiting, or diarrhea. He will be admitted to inpatient for diuresis. - HOSPITAL COURSE Hospital Course: The following diagnoses were prevalent during this hospital stay: (1) Hyperkalemia The patient had an elevated K+ upon admission of 6.1, and this is resolved. He was also found to have NOEMI, that is now resolved. (2) Anasarca The patient was found to have gross, pitting edema in BLE that has been getting progressively worse leading up to admission. The edema has been improving each day and on the day of discharge there was only a trace amount of BLE edema and he had LAURIE stockings in place. He continues to require oxygen and is found to have a rounded abdomen. A walking oxygen test was completed and he will not require 24 hour supplemental oxygen. (3) Lung cancer-non small cell The patient is now post op left lung lobectomy for lung CA. Dr. Roney Mullen performed this on 01/13/18, and I will attempt to contact him prior to discharge home for thoughts on post-op expected course. The patient was previously prescribed supplemental oxygen with activity that was ordered post-op by Valentin. Prior to discharge; a oxygen walking saturation test was completed by our respiratory therapist. A [id number] exam was completed and results were conveyed to the patient, his daughter, and his son; The patient was NOT found to be hypoxic at rest, with room air oxygen saturation at 93%. During ambulation on room air, oxygen saturation dropped to 88%. With exertion on 2L per nasal cannula oxygen saturation improved to 98%. I am ordering home oxygen with activity at 2L per nasal cannula. (4) Hypertension The patient has a known history of this and is prescribed metoprolol and lisinopril at home. Lisinopril was held due to high dose lasix and the worry of nephrotoxic overload and was resumed at discharge. The latest blood pressure was 134/70 just before discharge. (5) Diastolic dysfunction An echocardiogram was completed on 01/26/18 and shows an abnormal degree of diastolic function. He has evidence of this with his anasarca and rounded, increased abdominal girth. (6) Anemia The patient was found to be anemic upon admission and on the day of discharge was 8.6/26.5. He did not receive any blood products for this hospital stay. He was continued on his iron supplement. (7) Status post lobectomy of lung The patient remains with a unremarkable left upper posterior chest and left flank incision that appears clean, dry and intact. A call to Tommy Mullen was made on the morning of discharge and he explained that the patient had uncontrolled pain prior to this surgery. Dr. Mullen noted how extensive the surgery was in which ribs were removed and it progressed to a thoracotomy. He is expected to have post op pain and Dr. Mullen recommends ongoing treatment with tylenol 1000mg scheduled TID, PRN narcotics and scheduled gabapentin. (8) Generalized weakness The patient was likely generally weak due to an excess of fluid that led up to this admission. He has demonstrated improved ambulation with our nursing staff and his weakness was nearly at baseline at the time of discharge. (9) Anxiety The patient states that he found "the anxiety pill" prescribed upon admission to be very helpful. He is not accustomed to this level of debility and is overwhelmed by his recent medical illnesses. He states that he is not sleeping well lately. He is prescribed Citalopram at home, which has been continued here. He was given a short course of 0.5mg PO lorazepam as needed at the time of discharge. (10) Post-op pain The patient had a left lung lobectomy on 01/13/18 and had a chest tube for only a few days post-op. Both incisions appear healthy and healing nicely, but the patient has had ongoing post-op pain. Dr. Mullen from [facility] was contacted and had recommendations for ongoing scheduled APAP, which was prescribed upon discharge. (11) Hypoalbuminemia The patient's albumin was low at 2.9 and this was determined to be the most likely cause of his presenting anasarca, as his kidney and cardiac work up were ruled out as the culprit. A nutritional consult was completed. The patient was given information on low potassium foods and high protein foods. He was advised to stay away from boxed or canned foods as these are high in salt. The patient has had an extended hospital stay that was not anticipated due to a combination of ongoing post-op pain from his left posterior chest, overall weakness/fatigue and the fluid balance issues. 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 His daughter and son, who both admit to a medical background were equally upset and expressed their concerns. He was medically and mentally stable and ready to be discharged. A walking oxygen saturation test was completed, and he did not qualify for 24 hour continuous oxygen as the family wished he had. Prescriptions were sent to the pharmacy of choice and a hard script was given for Lorazepam as requested. He is to resume Home Health service as he is post-op a major left upper lobe VATS converted to an open thoracotomy that was performed by Dr. Tommy Mullen on 01/13/18 at [facility]. - ALLERGIES Allergies/Adverse Reactions: Allergies Allergy/AdvReac Type Severity Reaction Status Date / Time No Known Drug Allergies Allergy Verified 01/26/18 14:51 - MEDICATIONS Home Medications: Ambulatory Orders Medication Instructions Recorded Confirmed Allopurinol [Zyloprim] 100 mg PO .EVERY OTHER DAY 07/25/16 01/27/18 Lisinopril 20 mg PO DAILY 07/25/16 01/27/18 Metoprolol Succinate 25 mg PO DAILY 07/25/16 01/27/18 Citalopram [CeleXA] 10 mg PO DAILY 01/26/18 01/26/18 Ferrous Sulfate 325 mg PO BID 01/26/18 01/27/18 Gabapentin [Neurontin] 200 mg PO TID 01/26/18 01/26/18 Indomethacin 50 mg PO TID 01/26/18 01/26/18 Morphine ER 15 mg PO Q12H 01/26/18 01/26/18 Senna [Senokot] 1 tab PO DAILY PRN 01/26/18 01/27/18 oxyCODONE [Roxicodone] 5 mg PO Q4-6H 01/26/18 01/26/18 Acetaminophen [Tylenol Extra 1,000 mg PO TID #90 tablet 01/30/18 Strength] Furosemide 40 mg PO BID #60 tablet 01/30/18 LORazepam [Ativan] 0.5 mg PO Q6H PRN #20 tablet 01/30/18 Nitroglycerin [Nitrostat] 0.4 mg SL Q5MIN PRN tablet 01/30/18 Polyethylene Glycol 3350 [Miralax] 17 gm PO DAILY packet 01/30/18 Potassium Chloride [Klor-Con 10] 10 meq PO DAILY #90 tablet.er 01/30/18 - PHYSICAL EXAM AT DISCHARGE General Appearance: positive: No acute distress, Alert, Anxious Eyes Bilateral: positive: Normal inspection, PERRL ENT: positive: ENT inspection nml, Pharynx nml, Dry mucous membranes Neck: positive: Nml inspection, Thyroid nml, No JVD, Trachea midline Respiratory: positive: Chest non-tender, No respiratory distress, Other ( diminished with scattered crackles.) Cardiovascular: positive: Regular rate & rhythm, No gallop, Systolic murmur, Decreased pulse(s) Peripheral Pulses: positive: 1+ Abdomen: positive: Non-tender, No organomegaly, Nml bowel sounds, Other (rounded , increased abdominal girth.) Back: positive: Nml inspection Skin: positive: No rash, Warm, Dry, Pallor Extremities: positive: Non-tender, Full ROM, Pedal edema (mild, LAURIE hose in place.), Joint swelling (related to chronic gout.) Neurologic/Psychiatric: positive: Oriented x3, CN's nml (2-12), Motor nml, Sensation nml, Depressed mood/affect Reflexes: Bicep (R): 3+, Bicep (L): 3+, Ankle (R): 3+, Ankle (L): 3+ - LABS Result Diagrams: 01/30/18 05:15 01/30/18 05:15 - DIAGNOSTIC IMAGING Diagnostic Imaging Results: Final report reviewed Diagnostic Imaging Results Comments: EXAM: CT ANGIOGRAM CHEST EXAM DATE: 01/26/2018 04:06 PM. CLINICAL HISTORY: Post operative dyspnea. COMPARISON: Chest CT 11/13/2017. TECHNIQUE: Routine helical imaging was performed through the chest in the pulmonary arterial phase. IV Contrast: CE. Reconstructions: Coronal 3-D MIP reconstructions.Sagittal and coronal. In accordance with CT protocol optimization, one or more of the following dose reduction techniques were utilized for this exam: automated exposure control, adjustment of mA and/or KV based on patient size, or use of iterative reconstructive technique. FINDINGS: Pulmonary Arteries: Diagnostic quality: Adequate through the segmental arteries. No evidence for acute or chronic pulmonary emboli. Lungs/Pleura: The patient is status post interval left upper lobectomy. There is a staple line at the stump of the left upper lobe bronchus with some amorphous soft tissue density, likely postoperative. There is associated volume loss within left hemithorax with some distortion of the left pulmonary artery. Note is made of an apparent suture line at the left superior pulmonary vein with some thrombus within the stump of the vein (4, 71). There is resection of the left fourth through sixth rib posteriorly as well as a fracture of the left seventh rib posteriorly. There is associated adjacent pleural thickening as well as a part of an apparent mesh along the posterolateral aspect of the left hemithorax along the defect. Pleural thickening is prominent at the left lung apex with some loculated air. Pleural thickening within left lung base with trace left pleural effusion. There are some bandlike areas of atelectasis within the residual left lung. The right lung is mostly clear with a few minimal areas of diskoid atelectasis. Mediastinum: Subcentimeter mediastinal lymph nodes in the AP window and pretracheal region with a 14 mm subcarinal lymph node which is mildly increased in size compared to the prior exam. No pericardial effusion. Coronary atherosclerosis. Thoracic Aorta: Atherosclerosis without thoracic aortic aneurysm. Upper Abdomen: Cyst upper pole right kidney measuring 6.2 cm. Other: Likely sebaceous cyst posteriorly measuring 4.2 cm. Subcutaneous edema along the left aspect of the thorax. IMPRESSION: 1. No evidence of pulmonary embolus. 2. Status post left upper lobectomy with pleural thickening and trace left effusion as well as a small loculated pneumothorax, mostly at the apex of the left hemithorax. This can be postoperative in nature although follow-up chest x- rays are recommended to document resorption of the air. 3. Areas of diskoid atelectasis or scarring within the left hemithorax. 4. Mildly enlarged subcarinal lymph node, increased in size compared to the study of 2 months prior. EXAM: CHEST RADIOGRAPHY EXAM DATE: 01/26/2018 03:26 PM. CLINICAL HISTORY: Chest pain COMPARISON: 11/13/2017. TECHNIQUE: 1 view. FINDINGS: Lungs/Pleura: There is left lung volume loss. Patient has undergone left partial lung resection. Left effusion may be present. The right lung is relatively clear. No evidence of pneumothorax. Mediastinum: Heart size is within normal limits. There is thoracic aortic calcification. Other: Right Port-A-Cath tip terminates in the low SVC. IMPRESSION: 1. Status post left partial lung resection. Left pleural effusion may be present. 2. The right lung is relatively clear. 3. Heart size within normal limits. There is thoracic aortic calcification. 4. No evidence of pneumothorax. EXAM: XR/[id number] FRONTAL CHEST: 01/29/2018 CLINICAL INDICATION: Left chest pain. COMPARISON: 01/26/2018. FINDINGS: Frontal view of the chest demonstrates postoperative changes of left lobectomy. Residual loculated pneumothorax appears unchanged. Left rib fractures are unchanged. Right jugular port is stable. The right lung is clear. No right effusion or pneumothorax is seen. IMPRESSION: STABLE POSTOPERATIVE CHANGES IN THE LEFT CHEST. ECHOCARDIOGRAM 01/27/18-Final 1. Overall LV systolic function is normal with an EF of 55-60%. Mild inferior wall hypokinesis noted. 2. Abnormal diastolic parameters are present. The degree of diastolic dysfunction, if present, can not be determined. 3. The RV is normal in size and function. 4. There is moderate mitral regurg. RENAL ARTERY DUPLEX: 01/29/2018 CLINICAL INDICATION: Hypertension. TECHNIQUE: Real-time sonographic vascular imaging was performed by the public policy analyst through the renal arteries utilizing both color-flow and Doppler flow analysis. Multiple credit and collections representative static images were saved for review. RT KIDNEY ? RENAL SIZE LT KIDNEY ? RENAL SIZE Size: 11.6 x 5.7 x 5.4 cm Size: 12.2 x 6.5 x 4.9 cm Echotexture WNL. SEGMENTAL ARTERY PSV RI PSV RI Upper Pole 27 0.76 Upper Pole 28 0.79 Mid Pole 18 0.72 Mid Pole 15 0.72 Lower Pole 25 0.78 Lower Pole 18 0.72 RIGHT RENAL ARTERY LEFT RENAL ARTERY PSV RENAL ARTERY/ AORTA RATIO (RA/AO) PSV RENAL ARTERY/ AORTA RATIO (RA/AO) Origin: not seen not seen Origin: not seen not seen Proximal: not seen not seen Proximal: not seen not seen Mid: 194 2.04 Mid: not seen not seen Distal: 187 1.97 Distal: 219 2.31 PROX AORTA PSV: 95 cm/sec RRV patent: Y LRV patent: Y CRITERIA FOR CLASSIFICATION OF RENAL ARTERY DISEASE BY DUPLEX SCANNING Source: ? Criteria for Classification of Renal Artery Disease by Duplex Scanning? [employer]?s Duplex Scanning In Vascular Disorders, 4th ed. 2010. Print. RENAL ARTERY DIAMETER REDUCTION RENAL ARTERY PSV RAR Normal < 180 cm/sec < 3.5 < 60% >/= 180 cm/sec < 3.5 >/= 60% >/= 180 cm/sec >/= 3.5 Occlusion (100%) No signal No signal FINDINGS RIGHT: The origin and proximal portions of the right renal artery are not visualized, due to bowel gas. The mid to distal demonstrate normal velocities and ratios. Resistive indices are elevated, compatible with medical renal disease. The right kidney measures 11.6 x 5.7 x 5.4 cm, and demonstrates cortical cysts, the largest measuring 6.7 cm. LEFT: The origin, proximal and mid portions of the left renal artery are not visualized, due to overlying bowel gas. The distal demonstrates normal velocity and ratio. Resistive indices are elevated, compatible with medical renal disease. The left kidney measures 12.2 x 6.5 x 4.9 cm, and appears unremarkable. No free fluid is present. IMPRESSION: NONVISUALIZATION OF THE MAJORITY OF THE RENAL ARTERIES, DUE TO OVERLYING BOWEL GAS. ELEVATED RESISTIVE INDICES, COMPATIBLE WITH MEDICAL RENAL DISEASE. - FOLLOW UP Follow Up: Disposition: 01 Home, Self Care Condition: Good Prescriptions: Acetaminophen [Tylenol Extra Strength] 1,000 mg PO TID #90 tablet Furosemide 40 mg PO BID #60 tablet LORazepam [Ativan] 0.5 mg PO Q6H PRN #20 tablet PRN Reason: Anxiety Potassium Chloride [Klor-Con 10] 10 meq PO DAILY #90 tablet.er Diet: Regular (High protein) Activity Restrictions: Activity as Tolerated Shower Restrictions: No Driving Restrictions: Yes Weight Bearing: Full Weight Additional Instructions or Follow Up instructions: You were admitted for increased edema and elevated potassium. The extra fluid gradually became better; as evidenced by a follow up x-ray that showed a resolution of right lung pleural effusion, less swelling in your legs, and slightly less abdominal edema. You were given aggressive IV diuretics that will continue in an oral form at home for 7 days twice per day, then reduced to just once per day. You should also take a potassium supplement at 40Meq x 7 days, then down to just 20Meq there after. Your kidney function has improved and you have a normal creatinine. Imaging was completed as part of the kidney work up and I spoke with Dr. Montes, the radiologist who determined that there was no apparent kidney damage due to obstruction or blood flow to your kidneys. Your albumin level is low making extra fluid not as likely to stay within your vessels, which does not help with your edema issues. You should avoid salt and maintain a high protein diet. A walking oxygen saturation test is ordered and results show a need for oxygen with activity. Shortly after you were admitted, you complained of chest pain that went away after you were given a GI cocktail and a small dose of lorazepam. I have prescribed a short coarse of Lorazepam at home. Your surgeon, Dr. Tommy Mullen was called regarding expected post-op pain. He was happy for the call and knew you well. He was not surprised that you continue to have pain, but remembered that your pre-op pain was much worse. He would like you to take tylenol every 8 hours 1000mg at a time, scheduled. You should follow up with your PCP within one week due to your fluid balance problems. - TIME SPENT Time Spent in Discharge (Minutes): 60
[2018-01-30 13:19] VITALS: BP 109/86
--- NOTE | 2018-01-30 16:55 | Ultrasound Report ---
RENAL ARTERY DUPLEX: 01/29/2018 CLINICAL INDICATION: Hypertension. TECHNIQUE: Real-time sonographic vascular imaging was performed by the follow up clerk through the renal arteries utilizing both color-flow and Doppler flow analysis. Multiple sales representative graphic art static images were saved for review. 3 RT KIDNEY RENAL SIZE LT KIDNEY RENAL SIZE Size: 11.6 x 5.7 x 5.4 cm Size: 12.2 x 6.5 x 4.9 cm Echotexture WNL. SEGMENTAL ARTERY 3 PSV RI PSV RI Upper Pole 27 0.76 Upper Pole 28 0.79 Mid Pole 18 0.72 Mid Pole 15 0.72 Lower Pole 25 0.78 Lower Pole 18 0.72 RIGHT RENAL ARTERY LEFT RENAL ARTERY 3 PSV RENAL ARTERY/ AORTA RATIO (RA/AO) PSV RENAL ARTERY/ AORTA RATIO (RA/AO) Origin: not seen not seen Origin: not seen not seen Proximal: not seen not seen Proximal: not seen not seen Mid: 194 2.04 Mid: not seen not seen Distal: 187 1.97 Distal: 219 2.31 PROX AORTA PSV: 95 cm/sec RRV patent: Y LRV patent: Y CRITERIA FOR CLASSIFICATION OF RENAL ARTERY DISEASE BY DUPLEX SCANNING Source: Criteria for Classification of Renal Artery Disease by Duplex Scanning [facility] Duplex Scanning In Vascular Disorders, 4th ed. 2010. Print. 3 RENAL ARTERY DIAMETER REDUCTION RENAL ARTERY PSV RAR Normal < 180 cm/sec < 3.5 < 60% >/= 180 cm/sec < 3.5 >/= 60% >/= 180 cm/sec >/= 3.5 Occlusion (100%) No signal No signal FINDINGS RIGHT: The origin and proximal portions of the right renal artery are not visualized, due to bowel gas. The mid to distal demonstrate normal velocities and ratios. Resistive indices are elevated, compatible with medical renal disease. The right kidney measures 11.6 x 5.7 x 5.4 cm, and demonstrates cortical cysts, the largest measuring 6.7 cm. LEFT: The origin, proximal and mid portions of the left renal artery are not visualized, due to overlying bowel gas. The distal demonstrates normal velocity and ratio. Resistive indices are elevated, compatible with medical renal disease. The left kidney measures 12.2 x 6.5 x 4.9 cm, and appears unremarkable. No free fluid is present. IMPRESSION: NONVISUALIZATION OF THE MAJORITY OF THE RENAL ARTERIES, DUE TO OVERLYING BOWEL GAS. ELEVATED RESISTIVE INDICES, COMPATIBLE WITH MEDICAL RENAL DISEASE. TD: 01/30/2018 08:43 MTDD
== END 2018-01-30 15:07 | disposition home health service (06) | DRG 844 ==
LOC: ED 14:43 → MS2 18:06
PROVIDERS: ADMIT Nurse Practitioner Gerontology; ATTEND Nurse Practitioner
DX: E88.09 Other disorders of plasma-protein metabolism, not elsewhere classified (principal); C34.12 Malignant neoplasm of upper lobe, left bronchus or lung; R07.89 Other chest pain; R06.02 Shortness of breath; J90 Pleural effusion, not elsewhere classified; R60.1 Generalized edema; E87.5 Hyperkalemia; I11.9 Hypertensive heart disease without heart failure; D64.9 Anemia, unspecified; G89.28 Other chronic postprocedural pain; Z85.118 Personal history of other malignant neoplasm of bronchus and lung; F41.9 Anxiety disorder, unspecified; R53.1 Weakness; R35.0 Frequency of micturition; I10 Essential (primary) hypertension; H91.90 Unspecified hearing loss, unspecified ear; H54.7 Unspecified visual loss; M10.9 Gout, unspecified; Z66 Do not resuscitate; Z90.2 Acquired absence of lung [part of]; Z99.81 Dependence on supplemental oxygen; Z79.891 Long term (current) use of opiate analgesic; Z79.899 Other long term (current) drug therapy; Z87.891 Personal history of nicotine dependence
CPT/HCPCS: 36415; 71045; 71275; 80053; 82550; 82553; 82607; 82728; 83540; 83615; 83690; 83735; 83880; 84100; 84132; 84466; 84484; 85025; 85044; 85610; 93005; 93306; 93975; 94640; 96374; 96375; 99284; 99285

== ENCOUNTER 2018-06-09 08:01 | Outpatient (CLI) | payer MEDICARE ==
[2018-06-09 11:48] LABS: BASOPHILS % (AUTO) 0.6 %; EOSINOPHILS # (AUTO) 0.2 10^3/uL (0.0-0.7); EOSINOPHILS % (AUTO) 4.9 %; HGB - HEMOGLOBIN 12.7 g/dL (14.0-18.0); LYMPHOCYTES # (AUTO) 0.4 10^3/uL (1.5-3.5); LYMPHOCYTES % (AUTO) 10.1 %; MEAN CORPUSCULAR HEMOGLOBIN 30.1 pg (27.0-31.0); MEAN CORPUSCULAR VOLUME 88.6 fL (80.0-94.0); MEAN PLATELET VOLUME 6.7 fL (7.4-11.4); MONOCYTES # (AUTO) 0.4 10^3/uL (0.0-1.0); MONOCYTES % (AUTO) 10.1 %; NEUTROPHILS # (AUTO) 3.2 10^3/uL (1.5-6.6); NEUTROPHILS % (AUTO) 74.3 %; PLT - PLATELET COUNT 230 10^3/uL (130-450); RED BLOOD COUNT 4.21 10^6/uL (4.70-6.10); RED CELL DISTRIBUTION WIDTH 16.2 % (12.0-15.0); WHITE BLOOD COUNT 4.4 x10^3/uL (4.8-10.8)
[2018-06-09 12:04] LABS: ALBUMIN 3.9 g/dL (3.2-5.5); ALBUMIN/GLOBULIN RATIO 1.2 (1.0-2.2); ALKALINE PHOSPHATASE 93 IU/L (42-121); ALT ALANINE AMINOTRANSFERASE < 10 IU/L (10-60); AST ASPARTATE AMINOTRANSFERASE 18 IU/L (10-42); BILIRUBIN,TOTAL 1.1 mg/dL (0.2-1.0); BUN - BLOOD UREA NITROGEN 16 mg/dL (6-20); CALCIUM 9.4 mg/dL (8.5-10.3); CARBON DIOXIDE - CO2 26 mmol/L (21-32); CHLORIDE 102 mmol/L (101-111); CREATININE 0.7 mg/dL (0.6-1.2); GFR - MDRD 109 (>89); GLUCOSE 94 mg/dL (70-100); SODIUM 136 mmol/L (135-145); TOTAL PROTEIN 7.1 g/dL (6.7-8.2); URIC ACID 6.4 mg/dL (2.6-7.2)
[2018-06-09 12:20] LABS: PSA FREE < 0.005 ng/mL (0.16-2.81); PSA TOTAL < 0.008 ng/mL (0.000-2.000)
== END 2018-06-09 08:02 | disposition home or self-care (01) ==
LOC: LAB.F 08:01
PROVIDERS: ATTEND Internal Medicine
DX: I50.30 Unspecified diastolic (congestive) heart failure (principal); Z85.46 Personal history of malignant neoplasm of prostate; M10.9 Gout, unspecified
CPT/HCPCS: 36415; 80053; 84154; 84550; 85025

== ENCOUNTER 2018-12-22 18:56 | Outpatient (CLI) | payer MEDICARE | END 2018-12-22 18:57 | disposition short-term general hospital (02) | LOC: EMS 18:56 | PROVIDERS: ATTEND Surgery | DX: R06.02 Shortness of breath (principal) | CPT/HCPCS: A0425; A0427 ==

== ENCOUNTER 2019-04-27 19:37 | Emergency (ER) | payer MEDICARE ==
[2019-04-27 20:03] LABS: BASOPHILS % (AUTO) 0.3 %; EOSINOPHILS # (AUTO) 0.1 10^3/uL (0.0-0.7); EOSINOPHILS % (AUTO) 0.7 %; HGB - HEMOGLOBIN 15.7 g/dL (14.0-18.0); LYMPHOCYTES # (AUTO) 0.4 10^3/uL (1.5-3.5); LYMPHOCYTES % (AUTO) 4.1 %; MEAN CORPUSCULAR HGB CONC 32.8 g/dL (32.0-36.0); MEAN CORPUSCULAR VOLUME 91.2 fL (80.0-94.0); MEAN PLATELET VOLUME 8.7 fL (7.4-11.4); MONOCYTES # (AUTO) 0.5 10^3/uL (0.0-1.0); NEUTROPHILS # (AUTO) 8.9 10^3/uL (1.5-6.6); NEUTROPHILS % (AUTO) 89.6 %; PLT - PLATELET COUNT 199 10^3/uL (130-450); RED BLOOD COUNT 5.24 10^6/uL (4.70-6.10); RED CELL DISTRIBUTION WIDTH 13.8 % (12.0-15.0); WHITE BLOOD COUNT 9.9 x10^3/uL (4.8-10.8)
[2019-04-27 20:16] LABS: ALBUMIN 4.4 g/dL (3.2-5.5); ALBUMIN/GLOBULIN RATIO 1.2 (1.0-2.2); BILIRUBIN,TOTAL 1.7 mg/dL (0.2-1.0); CALCIUM 9.3 mg/dL (8.5-10.3); CREATININE 0.8 mg/dL (0.6-1.2)
--- NOTE | 2019-04-27 22:18 | ED Physician Documentation ---
History of Present Illness - Stated complaint Stated Complaint: INFECTED CYST - Chief complaint Chief Complaint: Wound - Additonal information Additional information: This is a 78-year-old male with a history of left lobectomy for a reported cancer mass, who presents with increased swelling and pain over his back where he had a cyst removed. Patient states that a large cyst that had a wall around it which was removed 13 days ago on the sixth of this month with Dr. Pittman. He states that over the past several days it has not been draining and it has been increasing in size and tenderness. He denies any fever. The pain is severe when he lays back on it. He is not on antibiotics. Review of Systems Constitutional: denies: Fever GI: denies: Vomiting Skin: reports: Lesions Immunocompromised: denies: Immunocompromised PD PAST MEDICAL HISTORY - Past Medical History Cardiovascular: Hypertension, Murmur Respiratory: None Neuro: None Endocrine/Autoimmune: None GI: None : Frequency, Other HEENT: Chronic vision loss, Chronic hearing loss Psych: Anxiety Musculoskeletal: Gout Derm: None - Past Surgical History General: Colonoscopy Cardiovascular: Lobectomy HEENT: Tonsil/Adenoidectomy - Present Medications Home Medications: Ambulatory Orders Medication Instructions Recorded Confirmed RX: Allopurinol [Zyloprim] 100 mg PO .EVERY OTHER DAY 07/25/16 01/27/18 RX: Lisinopril 20 mg PO DAILY 07/25/16 01/27/18 RX: Metoprolol Succinate 25 mg PO DAILY 07/25/16 01/27/18 RX: Citalopram [CeleXA] 10 mg PO DAILY 01/26/18 01/26/18 RX: Ferrous Sulfate 325 mg PO BID 01/26/18 01/27/18 RX: Gabapentin [Neurontin] 200 mg PO TID 01/26/18 01/26/18 RX: Indomethacin 50 mg PO TID 01/26/18 01/26/18 RX: Morphine ER 15 mg PO Q12H 01/26/18 01/26/18 RX: Senna [Senokot] 1 tab PO DAILY PRN 01/26/18 01/27/18 RX: oxyCODONE [Roxicodone] 5 mg PO Q4-6H 01/26/18 01/26/18 Acetaminophen [Tylenol Extra 1,000 mg PO TID #90 tablet 01/30/18 Strength] RX: Furosemide 40 mg PO BID #60 tablet 01/30/18 RX: LORazepam [Ativan] 0.5 mg PO Q6H PRN #20 tablet 01/30/18 RX: Nitroglycerin [Nitrostat] 0.4 mg SL Q5MIN PRN tablet 01/30/18 RX: Polyethylene Glycol 3350 17 gm PO DAILY packet 01/30/18 [Miralax] RX: Potassium Chloride [Klor-Con 10 meq PO DAILY #90 tablet.er 01/30/18 10] RX: Doxycycline Hyclate 100 mg PO BID #20 capsule 04/27/19 - Allergies Allergies/Adverse Reactions: Allergies Allergy/AdvReac Type Severity Reaction Status Date / Time No Known Drug Allergies Allergy Verified 04/27/19 19:43 - Social History Does the pt smoke?: No Smoking Status: Never smoker Does the pt drink ETOH?: No Does the pt have substance abuse?: No - Immunizations Immunizations are current?: Yes - POLST POLST Status: DNR PD ED PE NORMAL - Vitals Vital signs reviewed: Yes - General General: Alert and oriented X 3, No acute distress - HEENT HEENT: Atraumatic - Cardiac Cardiac: RRR (Normal rate in 80s on my exam) - Respiratory Respiratory: No respiratory distress - Abdomen Abdomen: Non distended - Derm Derm: Other (OVer the back there is a 7cm x 7 cm area of fluctuance and erythema, with a surgical incision with [address] No drainage from the incisional site. this is tender to palpation.) - Extremities Extremities: No deformity - Neuro Neuro: Alert and oriented X 3 - Psych Psych: Normal mood, Normal affect Results - Vitals Vitals: Oxygen O2 Source Room air - Labs Labs: Laboratory Tests 04/27/19 04/27/19 19:50 19:50 WBC 9.9 RBC 5.24 Hgb 15.7 Hct 47.8 MCV 91.2 MCH 30.0 MCHC 32.8 RDW 13.8 Plt Count 199 MPV 8.7 Neut # (Auto) 8.9 H Lymph # (Auto) 0.4 L [place] # (Auto) 0.5 Eos # (Auto) 0.1 Baso # (Auto) 0.0 Absolute Nucleated RBC 0.00 Nucleated RBC % 0.0 Sodium 139 Potassium 4.0 Chloride 101 Carbon Dioxide 25 Anion Gap 13.0 BUN 20 Creatinine 0.8 Estimated GFR (MDRD) 93 Glucose 128 H Calcium 9.3 Total Bilirubin 1.7 H AST 23 ALT 13 Alkaline Phosphatase 81 Total Protein 8.0 Albumin 4.4 Globulin 3.6 Albumin/Globulin Ratio 1.2 Lipase 22 Procedures - General procedure General procedure: Incision and drainage After discussion of risks and verbal consent, area was cleaned with chlorhexidine. Lidocaine used for anesthesia. I removed the sutures and using an 11 blade gently opened the wound along the incision site, which opened easily. Around 8ccs of mostly serous fluid was drained, there was fibrinous, purlent appearing chunks in the drainage initially. Aftewards sterile packing was placed loosely in the cavity followed by a clean dressing. PD MEDICAL DECISION MAKING - ED course Complexity details: considered differential (Abscess, infected cyst, seroma, cellulitis) ED course: Pt presents with an inflamed/infected appearing area of fluctuance on his back where he recently had a cyst removed. He is afebrile. Labs show no leukocytosis. Given the clinical appearance of abscess vs. infected seroma, I discussed opening the incision with the patient, who agreed. This expressed mostly serous fluid that had some initial fibrinous/purlent material. Wound culture of the fluid was taken. Loose packing was introduced and I started patient on doxycycline for treatment of the apparent associated overlying cellulitis. He will follow with Dr. Pittman this week, and return to the Ed sooner with any new or concerning symptoms. He does have very high blood pressure, but is asymptomatic, so will follow with his PCP on this. Departure - Departure Disposition: 01 Home, Self Care Clinical Impression: Seroma Condition: Good Instructions: ED Wound Infec After Surgery Follow-Up: Yoav Pittman MD [Provider Admit Priv/Credential] - Prescriptions: RX: Doxycycline Hyclate 100 mg PO BID #20 capsule Comments: You were seen today for swelling and redness and pain in the site of your cyst removal. This appeared to be a seroma (collection of fluid) which had signs of infection. It has been drained, and we put a small piece of gauze in the cyst cavity. This can be removed when you follow-up on Saturday. You can change the dressing at least daily or whenever it gets soaked. You may remove the bandage to shower, it is okay to shower and run water over the area of the incision. Please take the antibiotic as prescribed. We did take a wound culture, we will call you if the bacteria from the culture are not covered by the antibiotic. Return to the emergency department if you are having increasing pain, fever, or other concerning signs of worsening infection. Do not take the doxycycline antibiotic at the same time as your iron, as this leads to less absorption. Discharge Date/Time: 04/27/19 23:59
[2019-04-27] MEDS ORDERED: BUFFERED LIDOCAINE 10 ML SYRINGE SUBQ STA (23:02)
[2019-04-27] MEDS ORDERED: DOXYCYCLINE 100 MG TABLET PO STA (23:39)
[2019-04-27 23:44] VITALS: BP 183/107
== END 2019-04-27 23:59 | disposition home or self-care (01) ==
LOC: ED 19:37
DX: L76.33 Postprocedural seroma of skin and subcutaneous tissue following a dermatologic procedure (principal); Y83.8 Other surgical procedures as the cause of abnormal reaction of the patient, or of later complication, without mention of misadventure at the time of the procedure; L03.312 Cellulitis of back [any part except buttock and flank]; I10 Essential (primary) hypertension
CPT/HCPCS: 10060; 10140; 36415; 80053; 83690; 85025

== ENCOUNTER 2019-06-29 07:05 | Outpatient (CLI) | payer MEDICARE ==
[2019-06-29 10:08] LABS: ALBUMIN 4.1 g/dL (3.2-5.5); ALBUMIN/GLOBULIN RATIO 1.4 (1.0-2.2); ALKALINE PHOSPHATASE 80 IU/L (42-121); ALT ALANINE AMINOTRANSFERASE < 10 IU/L (10-60); AST ASPARTATE AMINOTRANSFERASE 18 IU/L (10-42); BILIRUBIN,TOTAL 1.8 mg/dL (0.2-1.0); BUN - BLOOD UREA NITROGEN 20 mg/dL (6-20); CALCIUM 9.3 mg/dL (8.5-10.3); CARBON DIOXIDE - CO2 29 mmol/L (21-32); CHLORIDE 101 mmol/L (101-111); CHOL/HDL RATIO 3.1 (<5.0); CHOLESTEROL 216 mg/dL; CREATININE 0.8 mg/dL (0.6-1.2); GFR - MDRD 93 (>89); GLUCOSE 96 mg/dL (70-100); HDL CHOLESTEROL 69 mg/dL; LDL CHOLESTEROL,CALCULATED 118 mg/dL; LDL/HDL RATIO 1.7 (<3.6); SODIUM 140 mmol/L (135-145); TOTAL PROTEIN 7.1 g/dL (6.7-8.2); VLDL CHOLESTEROL 29 mg/dL
== END 2019-06-29 07:06 | disposition home or self-care (01) ==
LOC: LAB.S 07:05
PROVIDERS: ATTEND Internal Medicine
DX: I10 Essential (primary) hypertension (principal); N40.1 Benign prostatic hyperplasia with lower urinary tract symptoms
CPT/HCPCS: 36415; 80053; 80061; 83721; 84153

== ENCOUNTER 2019-11-05 08:30 | Day surgery (SDC) | payer MEDICARE ==
[2019-11-05] MEDS ORDERED: LACTATED RINGERS 1,000 ML IV ONE (08:39)
[2019-11-05] MEDS ORDERED: fentaNYL 250 MCG/5 ML VIAL IVP ONE (09:33)
[2019-11-05] MEDS ORDERED: MIDAZOLAM 2 MG/2 ML VIAL IVP ONE (09:33)
[2019-11-05 10:35] VITALS: BP 162/94
== END 2019-11-05 08:31 | disposition home or self-care (01) ==
LOC: SDS 08:30
PROVIDERS: ATTEND Surgery
PROC: 0DJD8ZZ Inspection of Lower Intestinal Tract, Via Natural or Artificial Opening Endoscopic (ICD-10-PCS; principal; 2019-11-05 09:45)
DX: Z12.11 Encounter for screening for malignant neoplasm of colon (principal); K64.8 Other hemorrhoids; K64.4 Residual hemorrhoidal skin tags; I11.0 Hypertensive heart disease with heart failure; I50.30 Unspecified diastolic (congestive) heart failure; M25.551 Pain in right hip; Z85.118 Personal history of other malignant neoplasm of bronchus and lung; Z85.46 Personal history of malignant neoplasm of prostate; Z90.2 Acquired absence of lung [part of]; Z90.79 Acquired absence of other genital organ(s); Z79.899 Other long term (current) drug therapy
CPT/HCPCS: G0105; J3010; J7120

== ENCOUNTER 2020-02-15 08:47 | Outpatient (CLI) | payer MEDICARE ==
--- NOTE | 2020-02-15 09:33 | CT Report ---
Reason: MALIGNANT NEOPLASM OF UPPER LOBE Procedure Date: 02/15/2020 Accession Number: [id number] / [id number] Procedure: CT - CHEST WO CPT Code: Final Report FULL RESULT: PROCEDURE: CHEST WO INDICATIONS: MALIGNANT NEOPLASM OF UPPER LOBE TECHNIQUE: Noncontrast 5 mm thick sections acquired from the pulmonary apices to the posterior costophrenic angles. 7 mm thick coronal and sagittal MIP reformats were then acquired. For radiation dose reduction, the following was used: automated exposure control, adjustment of mA and/or kV according to patient size. COMPARISON: CT pulmonary angiogram 01/26/2018, CT chest with contrast 11/01/2017. FINDINGS: Image quality: Excellent. Lungs and pleura: Prior left upper lobe lobectomy and thoracotomy. Left apex pulmonary nodule measuring 4 mm, (), new. However, this appears platelike on the sagittal and coronal reformats. Mild scarring in the left lower lobe. Postsurgical change at the left pleura. Mild distal airway mucous plugging in the left lower lobe. No pleural effusions or pneumothorax. Mediastinum: Heart size is normal. Coronary artery calcifications. No pericardial effusion. No mediastinal adenopathy by size criteria. Thoracic aorta and central pulmonary arteries are normal in size. Esophagus is normal in caliber. No hiatal hernia. Bones and chest wall: No suspicious bony lesions. No vertebral body compression fractures. No axillary or supraclavicular adenopathy by size criteria. Thyroid is unremarkable. Abdomen: Visualized upper abdominal solid organs and bowel loops appear normal in the absence of contrast. Simple exophytic right renal cyst measuring 6.5 cm. No adrenal nodule. IMPRESSION: 1. Left apex 4 mm pulmonary nodule which is new compared to the prior exam. However, this appears platelike on the sagittal and coronal reformations. Primary diagnostic considerations include scarring and metastasis. -Recommend follow-up chest CT in 6 months. 2. No suspicious adenopathy. No suspicious osseous lesion. 3. Postsurgical findings of the left thoracotomy and left upper lobectomy. Reviewed by: Durga Nayak MD on 02/15/2020 9:32 AM PDT Approved by: Durga Nayak MD on 02/15/2020 9:32 AM PDT Station ID: [id number]
== END 2020-02-15 08:48 | disposition home or self-care (01) ==
LOC: DI 08:47
PROVIDERS: ATTEND Nurse Practitioner
DX: Z08 Encounter for follow-up examination after completed treatment for malignant neoplasm (principal); R91.1 Solitary pulmonary nodule; Z85.118 Personal history of other malignant neoplasm of bronchus and lung
CPT/HCPCS: 71250

== ENCOUNTER 2020-06-21 08:47 | Outpatient (CLI) | payer MEDICARE ==
--- NOTE | 2020-06-21 16:55 | CT Report ---
PROCEDURE: CHEST WO INDICATIONS: HISTORY OF LUNG CANCER TECHNIQUE: Noncontrast 5 mm thick sections acquired from the pulmonary apices to the posterior costophrenic angl es. 7 mm thick coronal and sagittal MIP reformats were then acquired. For radiation dose reduction, the following was used: automated exposure control, adjustment of mA and/or kV according to patient size. COMPARISON: CT chest 02/15/2020, CT chest angiogram 01/26/2018. FINDINGS: Image quality: Excellent. Lungs and pleura: A small 4 mm pulmonary nodule within the left upper lobe on series 4 image 94 appe ars stable in size compared to the prior study. No new suspicious nodules or mass lesions. Postsurgic al changes are redemonstrated status post left upper lobectomy. Left perihilar scarring and soft tiss ue thickening are redemonstrated. There is mild mucous plugging demonstrated in the left hilum. No ac adriana consolidation. Loculated pleural fluid is redemonstrated within the left apex compatible with pos t surgical changes. Left-sided volume loss with elevation of the left hemidiaphragm again noted. Mediastinum: Heart size is normal. No pericardial effusion. No mediastinal or hilar adenopathy by size criteria. Thoracic aorta and central pulmonary arteries are normal in size. Esophagus is anthony l in caliber. No hiatal hernia. Bones and chest wall: Postsurgical changes redemonstrated in the left chest wall compatible with ermelinda or left thoracotomy and partial resection of multiple ribs. No suspicious bony lesions. No vertebral body compression fractures. No axillary or supraclavicular adenopathy by size criteria. Abdomen: Visualized upper abdomen redemonstrates an exophytic cyst within the partially visualized r ight kidney. IMPRESSION: 1. Stable 4 mm left apical nodule. Recommend continued attention on follow-up in 6 months. 2. Post surgical changes redemonstrated in the left hemithorax. 3. No evidence of mediastinal or hilar lymphadenopathy. Reviewed by: Dez Brooks MD on 06/21/2020 4:53 PM PDT Approved by: Dez Brooks MD on 06/21/2020 4:53 PM PDT Station ID: [id number]
== END 2020-06-21 08:48 | disposition home or self-care (01) ==
LOC: DI 08:47
PROVIDERS: ATTEND Internal Medicine
DX: Z08 Encounter for follow-up examination after completed treatment for malignant neoplasm (principal); Z85.118 Personal history of other malignant neoplasm of bronchus and lung
CPT/HCPCS: 71250

== ENCOUNTER 2020-08-15 08:04 | Outpatient (CLI) | payer MEDICARE ==
[2020-08-15 15:16] LABS: BASOPHILS % (AUTO) 0.6 %; EOSINOPHILS # (AUTO) 0.2 10^3/uL (0.0-0.7); EOSINOPHILS % (AUTO) 2.4 %; HGB - HEMOGLOBIN 16.2 g/dL (14.0-18.0); LYMPHOCYTES # (AUTO) 0.7 10^3/uL (1.5-3.5); LYMPHOCYTES % (AUTO) 11.5 %; MEAN CORPUSCULAR HEMOGLOBIN 29.9 pg (27.0-31.0); MEAN CORPUSCULAR HGB CONC 32.3 g/dL (32.0-36.0); MEAN CORPUSCULAR VOLUME 92.6 fL (80.0-94.0); MEAN PLATELET VOLUME 9.1 fL (7.4-11.4); MONOCYTES # (AUTO) 0.5 10^3/uL (0.0-1.0); MONOCYTES % (AUTO) 8.1 %; NEUTROPHILS # (AUTO) 4.8 10^3/uL (1.5-6.6); NEUTROPHILS % (AUTO) 77.2 %; PLT - PLATELET COUNT 216 10^3/uL (130-450); RED BLOOD COUNT 5.42 10^6/uL (4.70-6.10); RED CELL DISTRIBUTION WIDTH 13.3 % (12.0-15.0); WHITE BLOOD COUNT 6.2 x10^3/uL (4.8-10.8)
[2020-08-15 15:38] LABS: ALBUMIN 4.2 g/dL (3.2-5.5); ALBUMIN/GLOBULIN RATIO 1.3 (1.0-2.2); ALKALINE PHOSPHATASE 83 IU/L (42-121); ALT ALANINE AMINOTRANSFERASE 10 IU/L (10-60); AST ASPARTATE AMINOTRANSFERASE 19 IU/L (10-42); BILIRUBIN,TOTAL 1.5 mg/dL (0.2-1.0); BUN - BLOOD UREA NITROGEN 16 mg/dL (6-20); CALCIUM 9.5 mg/dL (8.5-10.3); CARBON DIOXIDE - CO2 29 mmol/L (21-32); CHLORIDE 101 mmol/L (101-111); CHOL/HDL RATIO 3.3 (<5.0); CHOLESTEROL 235 mg/dL; CREATININE 0.7 mg/dL (0.6-1.2); GLUCOSE 97 mg/dL (70-100); HDL CHOLESTEROL 71 mg/dL; LDL CHOLESTEROL,CALCULATED 136 mg/dL; LDL/HDL RATIO 1.9 (<3.6); SODIUM 137 mmol/L (135-145); TOTAL PROTEIN 7.5 g/dL (6.7-8.2); VLDL CHOLESTEROL 28 mg/dL
== END 2020-08-15 08:05 | disposition home or self-care (01) ==
LOC: LAB.S 08:04
PROVIDERS: ATTEND Internal Medicine
DX: I10 Essential (primary) hypertension (principal); Z87.898 Personal history of other specified conditions
CPT/HCPCS: 36415; 80053; 80061; 83721; 84153; 85025

== ENCOUNTER 2021-05-12 07:09 | Outpatient (CLI) | payer MEDICARE ==
[2021-05-12 14:42] LABS: BASOPHILS % (AUTO) 0.7 %; EOSINOPHILS # (AUTO) 0.2 10^3/uL (0.0-0.7); EOSINOPHILS % (AUTO) 2.7 %; HCT - HEMATOCRIT 50.7 % (42.0-52.0); HGB - HEMOGLOBIN 15.8 g/dL (14.0-18.0); LYMPHOCYTES # (AUTO) 0.7 10^3/uL (1.5-3.5); LYMPHOCYTES % (AUTO) 12.4 %; MEAN CORPUSCULAR HEMOGLOBIN 28.7 pg (27.0-31.0); MEAN CORPUSCULAR HGB CONC 31.2 g/dL (32.0-36.0); MEAN CORPUSCULAR VOLUME 92.2 fL (80.0-94.0); MEAN PLATELET VOLUME 9.2 fL (7.4-11.4); MONOCYTES # (AUTO) 0.5 10^3/uL (0.0-1.0); MONOCYTES % (AUTO) 8.4 %; NEUTROPHILS # (AUTO) 4.2 10^3/uL (1.5-6.6); NEUTROPHILS % (AUTO) 75.4 %; PLT - PLATELET COUNT 196 10^3/uL (130-450); RED CELL DISTRIBUTION WIDTH 14.3 % (12.0-15.0); WHITE BLOOD COUNT 5.6 x10^3/uL (4.8-10.8)
[2021-05-12 15:16] LABS: ALBUMIN/GLOBULIN RATIO 1.2 (1.0-2.2); ALKALINE PHOSPHATASE 75 IU/L (42-121); ALT ALANINE AMINOTRANSFERASE 11 IU/L (10-60); AST ASPARTATE AMINOTRANSFERASE 18 IU/L (10-42); BILIRUBIN,TOTAL 1.8 mg/dL (0.2-1.0); BUN - BLOOD UREA NITROGEN 14 mg/dL (6-20); CALCIUM 9.1 mg/dL (8.5-10.3); CARBON DIOXIDE - CO2 28 mmol/L (21-32); CHLORIDE 100 mmol/L (101-111); CHOL/HDL RATIO 3.3 (<5.0); CHOLESTEROL 228 mg/dL; CREATININE 0.7 mg/dL (0.6-1.2); GFR - MDRD 109 (>89); GLUCOSE 94 mg/dL (70-100); HDL CHOLESTEROL 70 mg/dL; LDL CHOLESTEROL,CALCULATED 136 mg/dL; LDL/HDL RATIO 1.9 (<3.6); POTASSIUM 4.3 mmol/L (3.5-5.0); SODIUM 136 mmol/L (135-145); TOTAL PROTEIN 7.3 g/dL (6.7-8.2); TRIGLYCERIDES 108 mg/dL; VLDL CHOLESTEROL 22 mg/dL
== END 2021-05-12 07:10 | disposition home or self-care (01) ==
LOC: LAB.S 07:09
PROVIDERS: ATTEND Internal Medicine
DX: I10 Essential (primary) hypertension (principal); Z87.898 Personal history of other specified conditions
CPT/HCPCS: 36415; 80053; 80061; 83721; 84153; 85025

== ENCOUNTER 2021-05-30 09:09 | Outpatient (CLI) | payer MEDICARE | END 2021-05-30 09:10 | disposition home or self-care (01) | LOC: RT 09:09 | PROVIDERS: ATTEND Internal Medicine | DX: R06.02 Shortness of breath (principal) | CPT/HCPCS: 94010 ==

== ENCOUNTER 2021-06-06 11:40 | Outpatient (CLI) | payer MEDICARE | END 2021-06-06 11:41 | disposition critical access hospital (66) | LOC: EMS 11:40 | DX: R42 Dizziness and giddiness (principal); I10 Essential (primary) hypertension | CPT/HCPCS: A0425; A0429 ==

== ENCOUNTER 2021-06-06 12:16 | Emergency (ER) | payer MEDICARE ==
[2021-06-06] MEDS ORDERED: cloNIDine 0.1 MG TABLET PO STA ×2 (13:04→16:58)
--- NOTE | 2021-06-06 13:06 | ED Physician Documentation ---
PD HPI FOCAL NEURO - Stated complaint Stated Complaint: DIZZY - Chief complaint Chief Complaint: Neuro - History obtained from History obtained from: Patient - Additional information Additional information: 80-year-old gentleman with history of lung cancer in remission after chemo radiation and thoracotomy/lobectomy a few years ago. He also has hypertension. He had an episode this morning where he was dizzy. He describes a disequilibrium where he had trouble walking down the [place] and had to hold onto things on either side. He went to his doctors and was referred here for evaluation of that as well as uncontrolled hypertension. His doctor did write him new prescriptions for telmisartan and clonidine, to continue his metoprolol but discontinue his lisinopril. Review of Systems Ten Systems: 10 systems reviewed and negative Constitutional: denies: Fever, Chills Ears: denies: Loss of hearing, Ear pain, Drainage/discharge Nose: denies: Rhinorrhea / runny nose, Congestion Cardiac: denies: Chest pain / pressure, Palpitations Respiratory: denies: Dyspnea PD PAST MEDICAL HISTORY - Past Medical History Cardiovascular: Hypertension, Murmur Respiratory: None Neuro: None Endocrine/Autoimmune: None GI: Colon polyps : Frequency, Other HEENT: Chronic vision loss, Chronic hearing loss Psych: Anxiety Musculoskeletal: Gout Derm: None - Past Surgical History Past Surgical History: Yes General: Colonoscopy Cardiovascular: Lobectomy HEENT: Tonsil/Adenoidectomy - Present Medications Home Medications: Ambulatory Orders Medication Instructions Recorded Confirmed Lisinopril 20 mg PO DAILY 07/25/16 06/06/21 Metoprolol Succinate 25 mg PO DAILY 07/25/16 06/06/21 Fluticasone/Salmeterol [Advair 1 each IH BID 06/06/21 06/06/21 250-50 Diskus] - Allergies Allergies/Adverse Reactions: Allergies Allergy/AdvReac Type Severity Reaction Status Date / Time No Known Drug Allergies Allergy Verified 06/06/21 12:42 - Social History Does the pt smoke?: No Smoking Status: Never smoker Does the pt drink ETOH?: No Does the pt have substance abuse?: No - Immunizations Immunizations are current?: Yes - POLST Patient has POLST: Yes POLST Status: DNR PD ED PE NORMAL - Vitals Vital signs reviewed: Yes - General General: Alert and oriented X 3, No acute distress - HEENT HEENT: PERRL, EOMI, Pharynx benign - Neck Neck: Supple, no meningeal sign, No bony TTP - Cardiac Cardiac: RRR, No murmur - Respiratory Respiratory: No respiratory distress, Clear bilaterally - Abdomen Abdomen: Normal bowel sounds, Soft, Non tender - Back Back: No CVA TTP, No spinal TTP - Derm Derm: Normal color, Warm and dry - Neuro Neuro: Alert and oriented X 3, physiotherapy assistant 2-12 intact, No motor deficit, No sensory deficit, Other (Mild nystagmus on rightward gaze) Eye Opening: Spontaneous Motor: Obeys Commands Verbal: Oriented GCS Score: 15 - Psych Psych: Normal mood, Normal affect Results - Vitals Vitals: Vital Signs - 24 hr 06/06/21 06/06/21 06/06/21 12:33 12:36 12:48 Temperature 36.6 C 36.6 C Heart Rate 102 H 101 H 104 H Respiratory 20 22 20 Rate Blood Pressure 210/120 H 225/133 H 225/130 H O2 Saturation 97 96 95 06/06/21 06/06/21 06/06/21 14:11 15:46 17:02 Temperature 36.6 C Heart Rate 89 84 84 Respiratory 21 21 16 Rate Blood Pressure 135/77 H 142/80 H 178/70 H O2 Saturation 96 96 97 Oxygen O2 Source Room air - EKG (time done) 1303 Rate: Rate (enter#) (97) Rhythm: NSR, LAE [place]: Normal Intervals: Normal MD QRS: Normal Ischemia: Normal ST segments - Labs Labs: Laboratory Tests 06/06/21 06/06/21 13:13 13:13 WBC 7.0 RBC 5.56 Hgb 16.3 Hct 50.0 MCV 89.9 MCH 29.3 MCHC 32.6 RDW 13.5 Plt Count 173 MPV 8.6 Neut # (Auto) 5.6 Lymph # (Auto) 0.7 L [place] # (Auto) 0.5 Eos # (Auto) 0.1 Baso # (Auto) 0.0 Absolute Nucleated RBC 0.00 Nucleated RBC % 0.0 Sodium 136 Potassium 4.1 Chloride 100 L Carbon Dioxide 27 Anion Gap 9.0 BUN 14 Creatinine 0.6 Estimated GFR (MDRD) 130 Glucose 99 Calcium 9.3 - Rads (name of study) MRI of the brain without contrast demonstrates age-related volume loss and other age-related findings without evidence of recent CVA or mass. Radiology: EMP read contemporaneously PD MEDICAL DECISION MAKING - ED course ED course: 80-year-old gentleman presents with acute disequilibrium associated with significantly elevated blood pressures. MRI of the brain was done related to same and negative for acute findings. Blood pressure was improved after a dose of clonidine here which needed to be repeated. Departure - Departure Disposition: 01 Home, Self Care Clinical Impression: Hypertension, Dysequilibrium Condition: Good Record reviewed to determine appropriate education?: Yes Instructions: ED Hypertension Conf Out Of Control Comments: As discussed, your MRI is normal other than thing that would cause vertigo or unsteadiness. Return for new or worsening symptoms and start your new blood pressure regimen tomorrow.
[2021-06-06 13:26] LABS: BASOPHILS % (AUTO) 0.3 %; EOSINOPHILS # (AUTO) 0.1 10^3/uL (0.0-0.7); EOSINOPHILS % (AUTO) 1.7 %; HGB - HEMOGLOBIN 16.3 g/dL (14.0-18.0); LYMPHOCYTES # (AUTO) 0.7 10^3/uL (1.5-3.5); MEAN CORPUSCULAR HEMOGLOBIN 29.3 pg (27.0-31.0); MEAN CORPUSCULAR HGB CONC 32.6 g/dL (32.0-36.0); MEAN CORPUSCULAR VOLUME 89.9 fL (80.0-94.0); MEAN PLATELET VOLUME 8.6 fL (7.4-11.4); MONOCYTES # (AUTO) 0.5 10^3/uL (0.0-1.0); MONOCYTES % (AUTO) 7.3 %; NEUTROPHILS # (AUTO) 5.6 10^3/uL (1.5-6.6); NEUTROPHILS % (AUTO) 80.6 %; PLT - PLATELET COUNT 173 10^3/uL (130-450); RED BLOOD COUNT 5.56 10^6/uL (4.70-6.10); RED CELL DISTRIBUTION WIDTH 13.5 % (12.0-15.0)
[2021-06-06 13:27] LABS: CALCIUM 9.3 mg/dL (8.5-10.3); CREATININE 0.6 mg/dL (0.6-1.2); POTASSIUM 4.1 mmol/L (3.5-5.0)
--- NOTE | 2021-06-06 16:54 | MRI Report ---
PROCEDURE: Brain W/O INDICATIONS: Dysequilibrium TECHNIQUE: Noncontrast axial T1 spin echo, axial T2 fast spin echo, sagittal and axial FLAIR, coronal T2 fast sp in echo, axial gradient echo, axial diffusion and ADC through the brain. COMPARISON: None. FINDINGS: Image quality: Excellent. CSF Spaces: Basal cisterns are patent. No extra-axial fluid collections. Ventricles are normal in size and shape. Brain: Advanced global cerebral volume loss with severe chronic microvascular ischemic changes. No r estricted diffusion to indicate recent ischemia. The major intracranial vascular flow-related signal voids are maintained. Skull and face: Calvarium has normal marrow signal. Orbits appear normal. Sinuses: Moderate-sized right mastoid air cell effusion. Left mastoid air cells and paranasal sinuses are predominantly clear. IMPRESSION: No acute intracranial abnormality Advanced global cerebral volume loss and severe chronic microvascular ischemic changes. Moderate-sized right mastoid air cell effusion. Reviewed by: Eagle Aguilar MD on 06/06/2021 4:53 PM PDT Approved by: Eagle Aguilar MD on 06/06/2021 4:53 PM PDT Station ID: [id number]
[2021-06-06] MEDS ORDERED: LOSARTAN 50 MG TABLET PO STA (17:12)
[2021-06-06 17:25] VITALS: BP 170/95
== END 2021-06-06 17:25 | disposition home or self-care (01) ==
LOC: EDUNIT# → ED 12:16
DX: I10 Essential (primary) hypertension (principal); R42 Dizziness and giddiness; Z85.118 Personal history of other malignant neoplasm of bronchus and lung; Z90.2 Acquired absence of lung [part of]; Z66 Do not resuscitate
CPT/HCPCS: 36415; 70551; 80048; 85025; 93005; 99284; A9270

== ENCOUNTER 2021-07-22 08:37 | Outpatient (CLI) | payer MEDICARE ==
--- NOTE | 2021-07-22 12:01 | CT Report ---
PROCEDURE: CT of the chest without contrast INDICATIONS: HISTORY OF LUNG CA, PULMONARY NODULE TECHNIQUE: Noncontrast 1mm axial images were acquired from the pulmonary apices to the posterior costophrenic an gles. Axial 5 mm soft tissue kernel reconstructions were performed as well as 8 mm axial MIP and cor onal and sagittal 5 mm reformations. For radiation dose reduction, the following was used: automate d exposure control, adjustment of mA and/or kV according to patient size. COMPARISON: 06/21/2020 FINDINGS: Image quality: Excellent. Lungs and pleura: Small 4 mm left upper lobe pulmonary nodule has resolved in the interval. No new s uspicious nodules or mass lesions. Postsurgical changes are redemonstrated status post left upper lob ectomy. Left perihilar scarring and soft tissue thickening are redemonstrated. There is mild mucous p lugging demonstrated in the left hilum. No acute consolidation. Loculated pleural fluid/pleural thick ening is redemonstrated within the left apex compatible with post surgical changes. Left-sided volume loss with elevation of the left hemidiaphragm again noted. Mediastinum: Heart size is normal. No pericardial effusion. No mediastinal or hilar adenopathy by siz e criteria. Thoracic aorta and central pulmonary arteries are normal in size. Atherosclerotic vascula r calcification noted in the aortic arch. Esophagus is normal in caliber. No hiatal hernia. Bones and chest wall: Postsurgical changes redemonstrated in the left chest wall compatible with prio r left thoracotomy and partial resection of multiple ribs. No suspicious bony lesions. No vertebral b cory compression fractures. No axillary or supraclavicular adenopathy by size criteria. Abdomen: Visualized upper abdomen redemonstrates an exophytic cyst within the partially visualized ri ght kidney. IMPRESSION: 1. Stable CT of the chest status post left upper lobe lobectomy. 2. Left upper lobe pulmonary nodule has resolved in the interval. No new nodule or adenopathy. Reviewed by: Jh Cooper MD on 07/22/2021 10:59 AM [place] Approved by: Jh Cooper MD on 07/22/2021 10:59 AM [place] Station ID: [id number]
== END 2021-07-22 08:38 | disposition home or self-care (01) ==
LOC: DI 08:37
PROVIDERS: ATTEND Internal Medicine
DX: R91.1 Solitary pulmonary nodule (principal); Z85.118 Personal history of other malignant neoplasm of bronchus and lung

== ENCOUNTER 2022-01-19 10:11 | Observation (INO) | payer MEDICARE ==
[2022-01-19 10:39] LABS: BILIRUBIN,URINE NEGATIVE (NEGATIVE); GLUCOSE, URINE (UA) NEGATIVE (NEGATIVE); KETONES,URINE (UA) NEGATIVE (NEGATIVE); LEUKOCYTE ESTERASE, URINE NEGATIVE (NEGATIVE); NITRITE,URINE NEGATIVE (NEGATIVE); OCCULT BLOOD,URINE SMALL (NEGATIVE); PROTEIN,URINE 100 mg/dL (NEGATIVE); UROBILINOGEN,URINE 0.2 (NORMAL) E.U./dL (NORMAL)
--- NOTE | 2022-01-19 10:39 | ED Physician Documentation ---
PD HPI GI BLEED - Stated complaint Stated Complaint: MALE GI - Chief complaint Chief Complaint: Abd Pain - History obtained from History obtained from: Patient, Family - History of Present Illness Timing - onset: Last night, Yesterday Timing - duration: Hours (8-12) Timing - details: Abrupt onset (Patient states he was feeling okay the last few days with normal bowel movements and normal diet. Onset of some left lower abdominal pain yesterday evening which increased some overnight. He had a watery bowel movement around midnight and then awoke around 2 AM and had a large bloody stool.), Still present (Several more bloody stools through this morning. He had 1 here in the ER that was watery, overtly red blood, and about 50 mL in volume.) Associated symptoms: BRBPR, Abdominal pain (Mainly left lower). No: Vomiting Contributing factors: No: Sick contact, Bad food, Recent antibiotics, Alcohol use Improved by: No: BM Worsened by: No: Eating Similar symptoms before: Has not had sx before Recently seen: Not recently seen Review of Systems Constitutional: denies: Fever, Chills Nose: denies: Rhinorrhea / runny nose, Congestion Throat: denies: Sore throat Cardiac: reports: Pedal edema (chronic right more than left lower leg.). denies: Chest pain / pressure, Palpitations, Calf pain Respiratory: reports: Dyspnea. denies: Cough GI: reports: Abdominal Pain, Diarrhea, Bloody / black stool. denies: Nausea, Vomiting : denies: Dysuria, Frequency PD PAST MEDICAL HISTORY - Past Medical History Cardiovascular: Hypertension, Murmur Respiratory: None Neuro: None Endocrine/Autoimmune: None GI: Colon polyps : Frequency, Other HEENT: Chronic vision loss, Chronic hearing loss Psych: Anxiety Musculoskeletal: Gout Derm: None - Past Surgical History Past Surgical History: Yes General: Colonoscopy Cardiovascular: Lobectomy HEENT: Tonsil/Adenoidectomy - Present Medications Home Medications: Ambulatory Orders Medication Instructions Recorded Confirmed Metoprolol Succinate 25 mg PO DAILY 07/25/16 01/19/22 Fluticasone/Salmeterol [Advair 1 each IH BID 06/06/21 01/19/22 250-50 Diskus] Alfuzosin HCl [Alfuzosin HCl ER] 10 mg PO DAILY 01/19/22 01/19/22 Aspirin [[place] Aspirin] 81 mg PO DAILY 01/19/22 01/19/22 Diltiazem HCl [Cardizem] 120 mg PO DAILY 01/19/22 01/19/22 Ipratropium/Albuterol [Combivent 1 puffs INH QID 01/19/22 01/19/22 Respimat] Telmisartan 80 mg PO DAILY 01/19/22 01/19/22 - Allergies Allergies/Adverse Reactions: Allergies Allergy/AdvReac Type Severity Reaction Status Date / Time No Known Drug Allergies Allergy Verified 01/19/22 10:16 - Social History Does the pt smoke?: No Smoking Status: Never smoker Does the pt drink ETOH?: No Does the pt have substance abuse?: No - Immunizations Immunizations are current?: Yes - POLST Patient has POLST: Yes POLST Status: DNR PD ED PE NORMAL - Vitals Vital signs reviewed: Yes - General General: Alert and oriented X 3, Well developed/nourished, Other (mild pallor) - Neck Neck: Supple, no meningeal sign, No adenopathy - Cardiac Cardiac: No murmur. No: RRR (tachycardic but regular, 115.) - Respiratory Respiratory: No respiratory distress, Clear bilaterally - Abdomen Abdomen: Normal bowel sounds, Soft, Non distended, No organomegaly, Other (Tender left lower quadrant to palpation with mild local guarding. No rebound no referred tenderness in the area. Bowel sounds are present and reasonably normal active.) - Rectal Rectal: Deferred, Other (He had a bowel movement in 2 a collection hat which showed watery frankly red diarrheal output approximately 50 to 70 mL.) - Derm Derm: Warm and dry. No: Normal color (mild pallor) - Extremities Extremities: No tenderness to palpate, Normal ROM s pain, No calf tenderness / cord - Neuro Neuro: Alert and oriented X 3, No motor deficit, Normal speech Eye Opening: Spontaneous Motor: Obeys Commands Verbal: Oriented GCS Score: 15 Results - Vitals Vitals: Vital Signs - 24 hr 01/19/22 01/19/22 01/19/22 10:18 10:43 12:00 Temperature 37.0 C Heart Rate 106 H 107 H 115 H Respiratory 18 19 23 Rate Blood Pressure 190/91 H 211/109 H 176/109 H O2 Saturation 97 96 96 Oxygen O2 Source Room air - Labs Labs: Laboratory Tests 01/19/22 01/19/22 01/19/22 10:29 10:31 10:36 WBC 10.8 RBC 5.32 Hgb 15.8 Hct 47.9 MCV 90.0 MCH 29.7 MCHC 33.0 RDW 13.4 Plt Count 191 MPV 8.7 Neut # (Auto) 9.3 H Lymph # (Auto) 0.6 L [place] # (Auto) 0.6 Eos # (Auto) 0.2 Baso # (Auto) 0.0 Absolute Nucleated RBC 0.00 Nucleated RBC % 0.0 PT INR Sodium Potassium Chloride Carbon Dioxide Anion Gap BUN Creatinine Estimated GFR (MDRD) Glucose Calcium Total Bilirubin AST ALT Alkaline Phosphatase B-Natriuretic Peptide Total Protein Albumin Globulin Albumin/Globulin Ratio Lipase Urine Color YELLOW Urine Clarity CLEAR Urine pH 7.0 Ur Specific [place] 1.025 Urine Protein 100 H Urine Glucose (UA) NEGATIVE Urine Ketones NEGATIVE Urine Occult Blood SMALL H Urine Nitrite NEGATIVE Urine Bilirubin NEGATIVE Urine Urobilinogen 0.2 (NORMAL) Ur Leukocyte Esterase NEGATIVE Urine RBC 0-5 Urine WBC 0-3 Ur Squamous Epith Cells RARE Squamous Urine Bacteria None Seen Urine Mucus Few Strands Ur Microscopic Review INDICATED Urine Culture Comments NOT INDICATED Stl C. diff Tox B Gene NEGATIVE SARS-CoV-2 (PCR) Blood Type Blood Type Recheck Antibody Screen 01/19/22 01/19/22 01/19/22 10:36 10:36 10:36 WBC RBC Hgb Hct MCV MCH MCHC RDW Plt Count MPV Neut # (Auto) Lymph # (Auto) [place] # (Auto) Eos # (Auto) Baso # (Auto) Absolute Nucleated RBC Nucleated RBC % PT INR Sodium 138 Potassium 4.1 Chloride 102 Carbon Dioxide 25 Anion Gap 11.0 BUN 17 Creatinine 0.8 Estimated GFR (MDRD) 93 Glucose 108 H Calcium 9.3 Total Bilirubin 2.0 H AST 23 ALT 13 Alkaline Phosphatase 81 B-Natriuretic Peptide 215 H Total Protein 7.6 Albumin 4.2 Globulin 3.4 Albumin/Globulin Ratio 1.2 Lipase 26 Urine Color Urine Clarity Urine pH Ur Specific [place] Urine Protein Urine Glucose (UA) Urine Ketones Urine Occult Blood Urine Nitrite Urine Bilirubin Urine Urobilinogen Ur Leukocyte Esterase Urine RBC Urine WBC Ur Squamous Epith Cells Urine Bacteria Urine Mucus Ur Microscopic Review Urine Culture Comments Stl C. diff Tox B Gene SARS-CoV-2 (PCR) Blood Type Blood Type Recheck O POSITIVE Antibody Screen 01/19/22 01/19/22 01/19/22 11:00 11:08 11:08 WBC RBC Hgb Hct MCV MCH MCHC RDW Plt Count MPV Neut # (Auto) Lymph # (Auto) [place] # (Auto) Eos # (Auto) Baso # (Auto) Absolute Nucleated RBC Nucleated RBC % PT 11.4 INR 1.0 Sodium Potassium Chloride Carbon Dioxide Anion Gap BUN Creatinine Estimated GFR (MDRD) Glucose Calcium Total Bilirubin AST ALT Alkaline Phosphatase B-Natriuretic Peptide Total Protein Albumin Globulin Albumin/Globulin Ratio Lipase Urine Color Urine Clarity Urine pH Ur Specific [place] Urine Protein Urine Glucose (UA) Urine Ketones Urine Occult Blood Urine Nitrite Urine Bilirubin Urine Urobilinogen Ur Leukocyte Esterase Urine RBC Urine WBC Ur Squamous Epith Cells Urine Bacteria Urine Mucus Ur Microscopic Review Urine Culture Comments Stl C. diff Tox B Gene SARS-CoV-2 (PCR) NOT DETECTED Blood Type O POSITIVE Blood Type Recheck Antibody Screen NEGATIVE PD MEDICAL DECISION MAKING - ED course Complexity details: reviewed results (Descending colon colitis. Some diverticula in the area. No other acute process.), re-evaluated patient (His blood pressure is still good. He remained persistently tachycardic until more IV fluids. He had another bloody diarrhea while here again. Concern is physiologically tachycardic but not hypotensive.), considered differential (Likely colitis versus diverticulitis with bloody diarrhea. He is tachycardic so we will check blood count. CT scan to have better evaluate. We did obtain a blood bank hold.), d/w patient, d/w transportation sales consultant (Hospitalist Dr. Olivia.)
[2022-01-19 10:41] LABS: CLARITY,URINE CLEAR (CLEAR)
[2022-01-19 10:51] LABS: BACTERIA,URINE None Seen /HPF (None Seen); MUCUS,URINE Few Strands; RBC,URINE 0-5 /HPF (0-5); SQUAMOUS EPITHELIAL CELL,UR RARE Squamous (<= Few); WBC,URINE 0-3 /HPF (0-3)
[2022-01-19] MEDS ORDERED: SODIUM CHLORIDE 0.9% 1,000 ML IV STA ×2 (10:55→12:46)
[2022-01-19 11:05] LABS: BASOPHILS % (AUTO) 0.3 %; EOSINOPHILS # (AUTO) 0.2 10^3/uL (0.0-0.7); EOSINOPHILS % (AUTO) 1.4 %; HCT - HEMATOCRIT 47.9 % (42.0-52.0); HGB - HEMOGLOBIN 15.8 g/dL (14.0-18.0); LYMPHOCYTES # (AUTO) 0.6 10^3/uL (1.5-3.5); LYMPHOCYTES % (AUTO) 5.8 %; MEAN CORPUSCULAR HEMOGLOBIN 29.7 pg (27.0-31.0); MEAN PLATELET VOLUME 8.7 fL (7.4-11.4); MONOCYTES # (AUTO) 0.6 10^3/uL (0.0-1.0); MONOCYTES % (AUTO) 5.9 %; NEUTROPHILS # (AUTO) 9.3 10^3/uL (1.5-6.6); NEUTROPHILS % (AUTO) 86.4 %; PLT - PLATELET COUNT 191 10^3/uL (130-450); RED BLOOD COUNT 5.32 10^6/uL (4.70-6.10); RED CELL DISTRIBUTION WIDTH 13.4 % (12.0-15.0); WHITE BLOOD COUNT 10.8 x10^3/uL (4.8-10.8)
[2022-01-19 11:18] LABS: ALBUMIN 4.2 g/dL (3.2-5.5); ALBUMIN/GLOBULIN RATIO 1.2 (1.0-2.2); CALCIUM 9.3 mg/dL (8.5-10.3); CREATININE 0.8 mg/dL (0.6-1.2); POTASSIUM 4.1 mmol/L (3.5-5.0); TOTAL PROTEIN 7.6 g/dL (6.7-8.2)
[2022-01-19 11:24] LABS: PT - PROTHROMBIN TIME 11.4 secs (9.9-12.6)
--- NOTE | 2022-01-19 11:34 | XRAY Report ---
PROCEDURE: Chest 1 View X-Ray INDICATIONS: dyspnea TECHNIQUE: One view of the chest was acquired. COMPARISON: CT of chest dated 07/22/2021 FINDINGS: Surgical changes and devices: Surgical clips are noted in left upper mediastinum from prior left uppe r lobectomy. Lungs and pleura: Elevation of left hemidiaphragm with decreased left lung volume and left pleural th ickening is again seen unchanged from previous CT study. Mediastinum: Mediastinal contours appear normal. Heart size is normal. Bones and chest wall: No suspicious bony lesions. Overlying soft tissues appear unremarkable. IMPRESSION: No acute cardiopulmonary pathology. Stable post left upper lobectomy changes. Reviewed by: David Abreu MD on 01/19/2022 11:33 AM PDT Approved by: David Abreu MD on 01/19/2022 11:33 AM PDT Station ID: [id number]
[2022-01-19] MEDS ORDERED: HYDROmorphone 1 MG/ML CARPUJECT IVP STA (11:54)
[2022-01-19] MEDS ORDERED: IOPAMIDOL-300 100 ML VIAL ONE (12:13)
[2022-01-19] MEDS ORDERED: DIPHENOX/ATROPINE 2.5/0.025 MG TABLET PO STA (12:38)
--- NOTE | 2022-01-19 12:52 | CT Report ---
PROCEDURE: Abdomen/Pelvis W INDICATIONS: left lower abd pain and GI bleeding CONTRAST: IV CONTRAST: Isovue 300 ml: 100 PO CONTRAST: *NO PO CONTRAST TECHNIQUE: After the administration of oral and intravenous contrast, 5 mm thick sections acquired from the diap hragms to the symphysis. 5 mm thick coronal and sagittal reformats were acquired. For radiation dos e reduction, the following was used: automated exposure control, adjustment of mA and/or kV accordin g to patient size. COMPARISON: None. FINDINGS: Image quality: Excellent. ABDOMEN: Lung bases: Lung bases are clear. Heart size is normal. Solid organs: Liver and spleen are normal in size and enhancement. Gallbladder is unremarkable. Bi liary system is non dilated. Pancreas enhances normally. No adrenal nodules. Kidneys demonstrate n ormal size and enhancement, without hydronephrosis. Multiple exophytic right renal cyst. Peritoneum and bowel: There is a relatively long segment of descending colon which has diffuse wall e tavon with mild inflammatory change in the surrounding fat. Although there are some diverticuli in the area, it is felt that this more likely represents colitis. Consider infectious versus inflammatory v ersus ischemic colitis. Wall thickening and edema does not involve other colonic segments. There is s igmoid diverticulosis. No free fluid or air. Nodes and vessels: No retroperitoneal or mesenteric adenopathy by size criteria. Aorta and inferior vena cava are normal in size. Miscellaneous: No ventral hernias. PELVIS: Genitourinary: Bladder wall thickness is normal. Miscellaneous: No inguinal hernias or adenopathy. Prostate implant seeds. Bones: No suspicious bony lesions. No vertebral body compression fractures. IMPRESSION: 1. Relatively long segment of diffuse wall edema and surrounding inflammatory change in the adjacent fat involving the descending colon. This is consistent with focal colitis. Consider ischemic versus i nflammatory versus infectious colitis. 2. Sigmoid diverticulosis. 3. Prostate implant seeds. No evidence of metastatic disease in the abdomen and pelvis. Reviewed by: Russel Agrawal MD on 01/19/2022 12:50 PM PDT Approved by: Russel Agrawal MD on 01/19/2022 12:50 PM PDT Station ID: [id number]
[2022-01-19] MEDS ORDERED: metroNIDAZOLE 500 MG/100 ML 500 MG/100 ML BAG IV ONE (13:20)
[2022-01-19] MEDS ORDERED: cefTRIAXone 1 GM VIAL IVP STA (13:20)
[2022-01-19] MEDS ORDERED: ONDANSETRON ODT 4 MG TABLET TL PRN (13:35)
[2022-01-19] MEDS ORDERED: oxyCODONE 5 MG TABLET PO PRN (13:35)
[2022-01-19] MEDS ORDERED: MORPHINE 2 MG/ML CARPUJECT IVP PRN (13:35)
[2022-01-19] MEDS ORDERED: ONDANSETRON 4 MG/2 ML VIAL IVP PRN (13:35)
[2022-01-19] MEDS ORDERED: SODIUM CHLORIDE FLUSH 0.9% 10 ML SYRINGE IVP PRN (13:35)
[2022-01-19] MEDS ORDERED: ACETAMINOPHEN 325 MG TABLET PO PRN (13:35)
[2022-01-19 13:56] LABS: HCT - HEMATOCRIT 43.2 % (42.0-52.0); HGB - HEMOGLOBIN 14.2 g/dL (14.0-18.0)
[2022-01-19] MEDS ORDERED: METOPROLOL SUCCINATE 50 MG TABLET PO SCH (14:47)
[2022-01-19] MEDS ORDERED: IPRATROPIUM/ALBUTEROL 3 ML NEB INH PRN (14:47)
--- NOTE | 2022-01-19 14:57 | HISTORY & PHYSICAL EXAMINATION ---
Chief Complaint - Chief Complaint Chief Complaint: Rectal bleeding History of Present Illness - Admitted From Admitted From:: Home - History Obtained From Records Reviewed: [facility] History obtained from: Patient, ER Physician, EMR - History of Present Illness HPI Comment/Other: This is a 81-year-old old male with a past medical history significant for hypertension, history of non-small cell lung cancer left upper lobe status post left upper lobe lobectomy, BPH who presents today complaining of rectal bleeding. He states that yesterday at around 10 PM he developed lower abdominal pain and cramping. He had a bowl of cereal for dinner and was feeling fine throughout the day. He went to sleep and he woke up at around 3 AM and had 2-3 bloody bowel movements. He states there was no stool it was just blood. He states this is never happened to him before. He currently denies any abdominal pain after receiving pain medications but reports it was previously about an 8 out of 10. He has had some nausea but no vomiting. Denies fever, chills, dysuria, hematuria. He does report frequency and nocturia which is chronic for him. He believes he had a colonoscopy a couple of years ago which was unremarkable. He denies any chest pain but does have shortness of breath which he states is chronic for him. He does take a baby aspirin but denies the use of anticoagulation. He has had 2 more bloody bowel movements since arrival to the emergency department. In the emergency department, he was noted to be hypertensive and tachycardic in the 110s. Hemoglobin was 15. CT the abdomen pelvis was consistent with colitis concerning for either infectious or ischemic. Given the above findings, medicine was consulted for admission. I did discuss goals of care with the patient and he would like to be a DNR. History - Past Medical History Cardiovascular: reports: Hypertension Respiratory: reports: None Neuro: reports: None Endocrine/Autoimmune: reports: None GI: reports: Colon polyps : reports: Benign prostate hypertrophy, Other HEENT: reports: Chronic vision loss, Chronic hearing loss Psych: reports: Anxiety Musculoskeletal: reports: Gout Derm: reports: None MRSA Hx?: No - Past Surgical History General: reports: Colonoscopy Cardiovascular: reports: Lobectomy HEENT: reports: Tonsil/Adenoidectomy - Family & Social History Family History: Mother: , Father: , CAD, COPD/Emphysema, [place] Family History Comment/Other: He reports his father had a history of heart disease. He from myocardial infarction. Living arrangement: At home Living Situation: Alone Social History Notes: He lives at home alone. His daughter, Fannie, is present at bedside. He smoked a pack a day for about 15 years but quit over 30 years ago. He drinks 1 glass of wine each night. - Substance History Use: Uses substance without health or social issues: NONE - POLST Patient has POLST: Yes POLST Status: DNR Meds/Allgy - Home Medications Home Medications: Ambulatory Orders Medication Instructions Recorded Confirmed Metoprolol Succinate 25 mg PO DAILY 07/25/16 01/19/22 Fluticasone/Salmeterol [Advair 1 each IH BID 06/06/21 01/19/22 250-50 Diskus] Alfuzosin HCl [Alfuzosin HCl ER] 10 mg PO DAILY 01/19/22 01/19/22 Aspirin [[place] Aspirin] 81 mg PO DAILY 01/19/22 01/19/22 Diltiazem HCl [Cardizem] 120 mg PO DAILY 01/19/22 01/19/22 Ipratropium/Albuterol [Combivent 1 puffs INH QID 01/19/22 01/19/22 Respimat] Telmisartan 80 mg PO DAILY 01/19/22 01/19/22 - Allergies Allergies/Adverse Reactions: Allergies Allergy/AdvReac Type Severity Reaction Status Date / Time No Known Drug Allergies Allergy Verified 01/19/22 10:16 Review of Systems - Constitutional Constitutional: denies: Fever, Chills, Poor appetite - Cardiovascular Cariovascular: reports: Edema, Lightheadedness. denies: Chest pain, Syncope, Exertional dyspnea, Decr. exercise tolerance - Respiratory Respiratory: reports: SOB with exertion. denies: Cough, SOB at rest - Gastrointestinal Gastrointestinal: reports: Abdominal pain, Bloody stools, Nausea. denies: Black stools, Vomiting - Genitourinary Genitourinary: reports: Frequency, Nocturia. denies: Dysuria, Urgency, Hematuria - Musculoskeletal Musculoskeletal: denies: Muscle pain, Back pain - Integumentary Integumentary: denies: Rash - Neurological Neurological: denies: General weakness, Focal weakness - Hematologic/Lymphatic Hematologic/Lymphatic: denies: Bruising, Bleeding tendencies - All Other Systems All Other Systems: reports: Reviewed and negative Prior Level of Functionality: He is independent with his ADLs. Exam - Vital Signs Reviewed Vital Signs: Yes Vital Signs: Vital Signs x48h Temp Pulse Resp BP Pulse Ox 01/19/22 14:00 104 H 21 175/102 H 92 01/19/22 12:00 115 H 23 176/109 H 96 01/19/22 10:43 107 H 19 211/109 H 96 01/19/22 10:18 37.0 C 106 H 18 190/91 H 97 - Physical Exam General Appearance: positive: No acute distress, Alert Eyes Bilateral: positive: Normal inspection, Conjunctivae nml ENT: positive: ENT inspection nml Neck: positive: Nml inspection Respiratory: positive: No respiratory distress, Other (Breath sounds in the left upper lung field). negative: Wheezes, Rales Cardiovascular: positive: Tachycardia. negative: Irregularly irregular, Bradycardia, Systolic murmur Abdomen: positive: No distention, Tenderness (Tenderness in the left lower and upper quadrant.), Abnml bowel sounds (Hyperactive). negative: Guarding, Rebound Skin: positive: Warm, Dry Extremities: positive: Pedal edema (Trace edema in the bilateral lower ex tremities) Neurologic/Psychiatric: positive: Motor nml. negative: Disoriented to person, Disoriented to place, Disoriented to time Conclusion/Plan - Problem List (1) Acute colitis Conclusion/Plan: This was evident on the CT of the abdomen and pelvis. He presents with abdominal pain and melena. Hemoglobin is currently stable. Differential includes infectious or ischemic colitis. Colonoscopy from 2 years ago was unremarkable. We will continue him on empiric antibiotics with ceftriaxone and Flagyl. We will check a lactic acid. Monitor hemoglobin every 8 hours. If he continues to have ongoing bleeding or worsening abdominal pain then we will consult general surgery. Morphine as needed for pain control. Zofran as needed for nausea. (2) Lower GI bleed Conclusion/Plan: This is likely secondary to the colitis although may potentially also be due to a diverticular bleed. His hemoglobin is currently stable at 15. We will obtain a type and screen. We will check his hemoglobin every 8 hours. SCDs for DVT prophylaxis. Hold home aspirin. We will observe him overnight and if his hemoglobin is stable with resolution of the bleeding then we will look to discharge him tomorrow. (3) Hypertension Conclusion/Plan: He is currently hypertensive with systolics in the 170s but did not take all of his home antihypertensives this morning. We will resume these today. (4) Status post lobectomy of lung Conclusion/Plan: He will continue outpatient follow-up with oncology. Chest x-ray showed no acute abnormalities. (5) BPH (benign prostatic hyperplasia) Conclusion/Plan: Continue his home alfuzosin. - Lab Results Lab results reviewed: Yes Fish Bones: 01/19/22 13:43 01/19/22 10:36 - Diagnostic Imaging Results Diagnostic Imaging Results: positive: Final report reviewed Core Measures - Anticipated LOS I expect patient to be DC'd or transferred within 96 hours.: Yes - Issues Hospital Issues and Management Plan: 81-year-old male presents with abdominal pain and melena. Concern is for infectious or ischemic colitis. We will place in observation and start on empiric antibiotics. We will monitor his hemoglobin. - DVT/VTE - Prophylaxis VTE/DVT Device ordered at admit?: Yes VTE/DVT Prophylaxis med ordered at admit?: No
[2022-01-19] MEDS: LACTATED RINGERS 1,000 ML IV SCH (15:50)
[2022-01-19] MEDS: diltiaZEM CD 120 MG CAPSULE PO SCH (15:52)
[2022-01-19] MEDS: SODIUM CHLORIDE FLUSH 0.9% 10 ML SYRINGE IVP SCH (15:54)
[2022-01-19] MEDS: METOPROLOL SUCCINATE 25 MG TABLET PO SCH (15:57)
--- NOTE | 2022-01-19 16:05 | PHARMACY PROGRESS NOTE ---
- Best Possible Medication History Admit Date and Time: 01/19/22 8752 Processed by: Nursing Medication History completed: Yes Patient Interview: Completed As the person ultimately responsible for medication therapy, providers are able to order a medication from an existing home medication list in [facility] via the "Reconcile Routine" prior to Confirmation of that medication by account support rep. Such practice is discouraged except when the physician, in their clinical judg ment, deems that a medical need exists for a medication without regard to previous use.
[2022-01-19] MEDS ORDERED: IOPAMIDOL-300 100 ML VIAL IVP ONE (17:49)
[2022-01-19] MEDS: BUDESONIDE 0.5 MG/2 ML NEB INH SCH (19:54)
[2022-01-19] MEDS: FORMOTEROL FUMARATE NEB 20 MCG/2 ML INH SCH (19:54)
[2022-01-19] MEDS: metroNIDAZOLE 500 MG/100 ML 500 MG/100 ML BAG IV SCH (20:33)
[2022-01-19] MEDS ORDERED: TAMSULOSIN 0.4 MG CAPSULE PO SCH (21:00)
[2022-01-19 22:54] LABS: HCT - HEMATOCRIT 41.8 % (42.0-52.0); HGB - HEMOGLOBIN 13.6 g/dL (14.0-18.0)
[2022-01-20] MEDS: LACTATED RINGERS 1,000 ML IV SCH (03:26)
[2022-01-20] MEDS: metroNIDAZOLE 500 MG/100 ML 500 MG/100 ML BAG IV SCH ×2 (03:26→11:44)
[2022-01-20] MEDS: SODIUM CHLORIDE FLUSH 0.9% 10 ML SYRINGE IVP SCH ×3 (03:27→17:19)
[2022-01-20 06:17] LABS: BASOPHILS % (AUTO) 0.2 %; EOSINOPHILS # (AUTO) 0.2 10^3/uL (0.0-0.7); EOSINOPHILS % (AUTO) 2.2 %; HCT - HEMATOCRIT 41.9 % (42.0-52.0); HGB - HEMOGLOBIN 13.7 g/dL (14.0-18.0); LYMPHOCYTES # (AUTO) 0.5 10^3/uL (1.5-3.5); LYMPHOCYTES % (AUTO) 6.3 %; MEAN CORPUSCULAR HEMOGLOBIN 29.6 pg (27.0-31.0); MEAN CORPUSCULAR HGB CONC 32.7 g/dL (32.0-36.0); MEAN CORPUSCULAR VOLUME 90.5 fL (80.0-94.0); MEAN PLATELET VOLUME 8.9 fL (7.4-11.4); MONOCYTES # (AUTO) 0.6 10^3/uL (0.0-1.0); MONOCYTES % (AUTO) 7.2 %; NEUTROPHILS # (AUTO) 6.8 10^3/uL (1.5-6.6); NEUTROPHILS % (AUTO) 83.7 %; PLT - PLATELET COUNT 144 10^3/uL (130-450); RED BLOOD COUNT 4.63 10^6/uL (4.70-6.10); RED CELL DISTRIBUTION WIDTH 13.6 % (12.0-15.0); WHITE BLOOD COUNT 8.2 x10^3/uL (4.8-10.8)
[2022-01-20 06:26] LABS: CALCIUM 8.5 mg/dL (8.5-10.3); CREATININE 0.7 mg/dL (0.6-1.2); POTASSIUM 3.8 mmol/L (3.5-5.0)
[2022-01-20] MEDS: BUDESONIDE 0.5 MG/2 ML NEB INH SCH (07:43)
[2022-01-20] MEDS: FORMOTEROL FUMARATE NEB 20 MCG/2 ML INH SCH (07:44)
[2022-01-20] MEDS: METOPROLOL SUCCINATE 25 MG TABLET PO SCH (08:27)
[2022-01-20] MEDS: diltiaZEM CD 120 MG CAPSULE PO SCH (08:27)
[2022-01-20] MEDS ORDERED: cefTRIAXone 1 GM in SODIUM CHLORIDE 0.9% MINIBAG 100 ML IV SCH (09:00)
[2022-01-20] MEDS ORDERED: LOSARTAN 50 MG TABLET PO SCH (09:00)
[2022-01-20 13:54] LABS: HCT - HEMATOCRIT 42.4 % (42.0-52.0); HGB - HEMOGLOBIN 13.8 g/dL (14.0-18.0)
[2022-01-20] MEDS ORDERED: SODIUM CHLORIDE 0.9% 500 ML IV ONE (14:23)
[2022-01-20 15:59] VITALS: BP 135/72
--- NOTE | 2022-01-20 17:38 | Discharge Plan ---
Discharge Plan Problem Reviewed?: Yes Disposition: Home, Self Care Condition: Stable Diet: Regular Activity Restrictions: Activity as Tolerated Shower Restrictions: No Driving Restrictions: Yes (no driving due to severe shortness of breath) Health Concerns: You presented to our emergency room with diffuse abdominal pain and bloody stools. While the CAT scan showed that you had diffuse inflammation of your bowels called "colitis" you did not have a fever or an elevated white cell count. You did not need a blood transfusion. We think that you have an infection in your bowels that will be self-limited. By the time of discharge you had already improved tremendously with just IV fluids and a single dose of antibiotics. We will NOT be sending you home on antibiotics at this time. If a patient improves with just waiting, antibiotics are not recommended unless the diarrhea comes back. At the time of discharge you had quite a bit of shortness of breath with getting up to go to the bathroom and get getting dressed. You reassured us that that is your baseline. You are always that short of breath. Plan of Treatment: See your primary care provider in the next 2 weeks Care Goals: To have no further recurrence of the bloody diarrhea. If the bloody diarrhea does recur, we need to rethink the diagnosis. At this point we think it is simple inflammation and infection. But if it keeps on coming back we may need to look at you for something called ischemic bowel. Make sure you always keep in touch with your primary care provider to let them know. Assessment: Patient states he understands the care goals, already dressed and ready to go. Promises to follow through with visits to his primary care provider No Smoking: If you smoke, Please STOP! Call for help. Follow-up with: Storm Nicolas MD [Primary Care Provider] -
--- NOTE | 2022-01-20 17:50 | DISCHARGE SUMMARY ---
"Discharge Summary Admit Date: 01/19/22 Discharge Date: 01/20/22 Discharging Provider: Yusra Ruffin MD Primary Care Provider: Storm Nicolas MD Code Status: Do Not Attempt Resuscitation Condition at Discharge: Stable Discharge Disposition: 01 Home, Self Care - DIAGNOSES Admission Diagnoses: 1. Acute colitis 2. Lower GI bleed secondary to #1 3. Status post lobectomy of the lung 4. Benign prostatic hypertrophy 5. Chronic dyspnea on exertion - HPI History of Present Illness: This is a 81-year-old old male with a past medical history significant for hypertension, history of non-small cell lung cancer left upper lobe status post left upper lobe lobectomy, BPH who presents today complaining of rectal bleedi ng. He states that yesterday at around 10 PM he developed lower abdominal pain and cramping. He had a bowl of cereal for dinner and was feeling fine throughout the day. He went to sleep and he woke up at around 3 AM and had 2-3 bloody bowel movements. He states there was no stool it was just blood. He states this is never happened to him before. He currently denies any abdominal pain after receiving pain medications but reports it was previously about an 8 out of 10. He has had some nausea but no vomiting. Denies fever, chills, dysuria, hematuria. He does report frequency and nocturia which is chronic for him. He believes he had a colonoscopy a couple of years ago which was unremar kable. He denies any chest pain but does have shortness of breath which he states is chronic for him. He does take a baby aspirin but denies the use of anticoagulation. He has had 2 more bloody bowel movements since arrival to the emergency department. In the emergency department, he was noted to be hypertensive and tachycardic in the 110s. Hemoglobin was 15. CT the abdomen pelvis was consistent with colitis concerning for either infectious or ischemic. Given the above findings, medicine was consulted for admission. I did discuss goals of care with the patient and he would like to be a DNR. - Past Medical History Cardiovascular: reports: Hypertension Respiratory: reports: None Neuro: reports: None Endocrine/Autoimmune: reports: None GI: reports: Colon polyps : reports: Benign prostate hypertrophy, Other HEENT: reports: Chronic vision loss, Chronic hearing loss Psych: reports: Anxiety Musculoskeletal: reports: Gout Derm: reports: None MRSA Hx?: No - Past Surgical History General: reports: Colonoscopy Cardiovascular: reports: Lobectomy HEENT: reports: Tonsil/Adenoidectomy - CONSULTS | PROCEDURES Procedures: 1. Chest x-ray with no acute cardiopulmonary pathology. Stable status post left upper lobectomy changes. 2. Abdomen pelvis CT with a relatively long segment of descending colon which has diffuse wall edema with mild inflammatory changes in the surrounding fat. Although there is some diverticuli in the area it is felt more likely to be colitis. Consider infectious versus inflammatory versus ischemic colitis. Wall thickening and edema do not involve other's colonic segments. There is sigmoid diverticulosis. No free air. - HOSPITAL COURSE Hospital Course: Over the course of his stay, the patient's blood pressure was stable. He was mildly orthostatic in the afternoon of discharge. Supine blood pressure was 151/78. Sitting blood pressure was 145/64. Standing blood pressure 127/61. He did have 3-5 more small bowel movements that were bloody. But he had no abd ominal pain. No fever. By the evening of December 21 he was eating food. Wanting to go home. No longer having bloody diarrhea. He had received only 1 dose of Rocephin. White cell count remained low. Hemoglobin went from 15.8 on admission to 13.8 at discharge. However this was with 2700 cc positive fluid balance on December 20 up to midnight. And then another +2400 cc fluid balance by the time of discharge. I expect that the drop in hemoglobin is more dilutional than true GI bleed. From a colitis perspective I discussed that this could be ischemic colitis and not infectious colitis with him. It was abrupt in onset. He did not have fever, elevated white cell count. He could have also had a diverticular bleed. Abdominal pain was initially moderate and almost not present at all by the time of discharge. Since most of his symptoms have resolved he was really anxious to get home. He was tolerating a regular diet. His main problem was that of severe dyspnea on exertion. He says that this is a baseline problem for him. Even speaking too much will make him short of breath. This has been going on for several years, ever since he had his lung resection for lung cancer. At discharge temperature was 36.7. Repeat orthostatics after a small fluid bolus showed a supine blood pressure of 156/82. Sitting blood pressure 164/97. Standing blood pressure 171/77. Heart rate was 87. Respirations 18. 94% on room air. He is a 5 foot 7 inch stocky male at 82.55 kg. Looked his stated age. Voice was low, rough and hoarse. He said that again that was his baseline. Neck has shotty adenopathy with no JVD. He had prolonged and exhalation phase in the right lung but not quite wheezing. Left lung in the upper case was silent. He had just gotten up to the bathroom and got back in bed and respirations were as high as 24 and it took him over 5 minutes to finally get back to normal. I was a little concerned about this but he tells me that this was his baseline. Abdomen was soft, nontender, normal bowel sounds. No rebound or guarding. Extremities had 1+ edema. I have asked him to come back to the emergency room if he develops more bloody diarrhea. I told him that I am opting not to give him antibiotics. I have asked him to see his primary care provider in follow-up. Even though he has had a colonoscopy, he may be a candidate for follow-up colonoscopy if his symptoms continue. I explained to him that we would be looking for infectious colitis versus ischemic colitis on pathology. Stool was not sent for culture and sensitivity. - ALLERGIES Allergies/Adverse Reactions: Allergies Allergy/AdvReac Type Severity Reaction Status Date / Time No Known Drug Allergies Allergy Verified 01/19/22 10:16 - MEDICATIONS Home Medications: Ambulatory Orders Medication Instructions Recorded Confirmed Metoprolol Succinate 25 mg PO DAILY 07/25/16 01/19/22 Fluticasone/Salmeterol [Advair 1 each IH BID 06/06/21 01/19/22 250-50 Diskus] Alfuzosin HCl [Alfuzosin HCl ER] 10 mg PO DAILY 01/19/22 01/19/22 Aspirin [[place] Aspirin] 81 mg PO DAILY 01/19/22 01/19/22 Diltiazem HCl [Cardizem] 120 mg PO DAILY 01/19/22 01/19/22 Ipratropium/Albuterol [Combivent 1 puffs INH QID 01/19/22 01/19/22 Respimat] Telmisartan 80 mg PO DAILY 01/19/22 01/19/22 - LABS Result Diagrams: 01/20/22 13:50 01/20/22 05:53"
== END 2022-01-20 18:15 | disposition home or self-care (01) ==
LOC: ED 10:11 → MS2 13:35
PROVIDERS: ADMIT Internal Medicine; ATTEND Specialist
DX: K52.9 Noninfective gastroenteritis and colitis, unspecified (principal); I10 Essential (primary) hypertension; Z90.2 Acquired absence of lung [part of]; R06.09 Other forms of dyspnea; Z66 Do not resuscitate; N40.1 Benign prostatic hyperplasia with lower urinary tract symptoms; R35.0 Frequency of micturition; R00.0 Tachycardia, unspecified; R35.1 Nocturia; Z87.891 Personal history of nicotine dependence; Z85.118 Personal history of other malignant neoplasm of bronchus and lung; R06.02 Shortness of breath; Z20.822 Contact with and (suspected) exposure to COVID-19
CPT/HCPCS: 36415; 71045; 74177; 80048; 80053; 81001; 83605; 83690; 83880; 85014; 85018; 85025; 85610; 86850; 86900; 86901; 87493; 87635; 93005; 94640; 96361; 96365; 96366; 96367; 96375; 96376; 99284; 99285; A9270; G0378; J1170; J7120; J7626; Q9967; 81003; 87086

== ENCOUNTER 2022-07-18 13:32 | Outpatient (CLI) | payer MEDICARE ==
--- NOTE | 2022-07-18 15:18 | CT Report ---
PROCEDURE: CHEST WO INDICATIONS: LUNG CA TECHNIQUE: Noncontrast 1mm axial images were acquired from the pulmonary apices to the posterior costophrenic an gles. Axial 5 mm soft tissue kernel reconstructions were performed as well as 8 mm axial MIP and cor onal and sagittal 5 mm reformations. For radiation dose reduction, the following was used: automate d exposure control, adjustment of mA and/or kV according to patient size. COMPARISON: None FINDINGS: Image quality: Excellent. Lungs and pleura: There are postsurgical changes at involving the patient's left lung. There are area s of scarring present throughout both lungs left greater than right. I do not definitely identify any new pulmonary mass lesions or any focal lung infiltrates. Pleural-based thickening is noted at the l eft apex. Coronary artery and atherosclerotic calcifications are present. I do not see significant hilar or mediastinal adenopathy. No pleural effusion is identified. Visualized portions of the upper abdominal viscera show a right renal cyst but is otherwise unremarka ble.. IMPRESSION: 1. Prior postoperative and thoracotomy changes involving the patient's left hemithorax. 2. Area of the pleural-based scarring at the left apex. 3. No definite evidence for recurrent or residual neoplasm. 4. Coronary artery and atherosclerotic calcifications. 5. Right renal cyst. 6. Areas of the scarring present throughout both lungs left greater than right. Reviewed by: Daniel Minaya MD on 07/18/2022 3:17 PM PST Approved by: Daniel Minaya MD on 07/18/2022 3:17 PM PST Station ID: [id number]
== END 2022-07-18 13:33 | disposition home or self-care (01) ==
LOC: DI 13:32
PROVIDERS: ATTEND Internal Medicine
DX: Z08 Encounter for follow-up examination after completed treatment for malignant neoplasm (principal); Z85.118 Personal history of other malignant neoplasm of bronchus and lung; I25.10 Atherosclerotic heart disease of native coronary artery without angina pectoris; N28.1 Cyst of kidney, acquired

== ENCOUNTER 2022-12-22 12:48 | Outpatient (CLI) | payer MEDICARE | END 2022-12-22 23:59 | disposition critical access hospital (66) | LOC: EMS 12:48 | DX: R10.33 Periumbilical pain (principal); K42.9 Umbilical hernia without obstruction or gangrene; R10.815 Periumbilic abdominal tenderness | CPT/HCPCS: A0425; A0427 ==

== ENCOUNTER 2022-12-22 13:24 | Emergency (ER) | payer MEDICARE ==
--- NOTE | 2022-12-22 13:28 | ED Physician Documentation ---
PD HPI ABD PAIN - Stated complaint Stated Complaint: ABD PX - History obtained from History obtained from: Patient, EMS - Additional information Additional information: 82-year-old gentleman with history of prostate cancer status post seeds and lung cancer status post lobectomy presents with sudden severe periumbilical pain starting about an hour ago. No nausea or vomiting with it. He has not moved his bowels in a couple of days but he says that is not atypical for him. On arrival he is received a total of 150 mcg of fentanyl from EMS. PD PAST MEDICAL HISTORY - Past Medical History Cardiovascular: Hypertension Respiratory: None Neuro: None Endocrine/Autoimmune: None GI: Colon polyps : Benign prostate hypertrophy, Other HEENT: Chronic vision loss, Chronic hearing loss Psych: Anxiety Musculoskeletal: Gout Derm: None - Past Surgical History Past Surgical History: Yes General: Colonoscopy Cardiovascular: Lobectomy HEENT: Tonsil/Adenoidectomy - Present Medications Home Medications: Ambulatory Orders Medication Instructions Recorded Confirmed Metoprolol Succinate 25 mg PO DAILY 07/25/16 01/19/22 Fluticasone/Salmeterol [Advair 1 each IH BID 06/06/21 01/19/22 250-50 Diskus] Alfuzosin HCl [Alfuzosin HCl ER] 10 mg PO DAILY 01/19/22 01/19/22 Aspirin [[place] Aspirin] 81 mg PO DAILY 01/19/22 01/19/22 Diltiazem HCl [Cardizem] 120 mg PO DAILY 01/19/22 01/19/22 Ipratropium/Albuterol [Combivent 1 puffs INH QID 01/19/22 01/19/22 Respimat] Telmisartan 80 mg PO DAILY 01/19/22 01/19/22 - Allergies Allergies/Adverse Reactions: Allergies Allergy/AdvReac Type Severity Reaction Status Date / Time No Known Drug Allergies Allergy Verified 01/19/22 10:16 - Social History Does the pt smoke?: No Smoking Status: Former smoker Does the pt drink ETOH?: No Does the pt have substance abuse?: No - Immunizations Immunizations are current?: Yes - POLST Patient has POLST: Yes POLST Status: DNR PD ED PE NORMAL - Vitals Vital signs reviewed: Yes - General General: Alert and oriented X 3, Other (uncomfortable) - Abdomen Abdomen: Other (He has a tender incarcerated umbilical hernia that was reduced during exam.) - Extremities Extremities: No edema, No calf tenderness / cord - Neuro Neuro: Alert and oriented X 3, Normal speech Results - Vitals Vitals: Vital Signs - 24 hr 12/22/22 13:35 Temperature 37.1 C Heart Rate 96 Respiratory 18 Rate Blood Pressure 177/91 H O2 Saturation 91 L Oxygen O2 Source Room air PD Medical Decision Making - ED course ED course: 82-year-old gentleman presents with severe pain related to an incarcerated umbilical hernia that was reduced without much issue on initial examination. He was then observed for a while with resolution of his pain and was nontender on reevaluation just prior to discharge. Departure - Departure Disposition: 01 Home, Self Care Clinical Impression: Incarcerated umbilical hernia Condition: Stable Follow-Up: Surgical Care [Provider Group] Comments: You were seen today for an incarcerated umbilical hernia. Avoid heavy lifting and you should follow-up with a surgeon for definitive repair. If the hernia pops out again you can gently try to reduce it as we discussed, but if that is not working please return immediately for reevaluation.
[2022-12-22 14:56] VITALS: BP 174/93
== END 2022-12-22 14:55 | disposition home or self-care (01) ==
LOC: EDUNIT# → ED 13:24
DX: K42.0 Umbilical hernia with obstruction, without gangrene (principal); Z87.891 Personal history of nicotine dependence; Z66 Do not resuscitate
CPT/HCPCS: 99283

== ENCOUNTER 2023-02-07 11:12 | Day surgery (SDC) | payer MEDICARE ==
[~2023-02-07 11:12] MED LIST: BUPIVACAINE 0.25% PF 30 ML VIAL ONE; LIDOCAINE 1%-EPI 1:100000 20 ML MDV ONE
[2023-02-07] MEDS ORDERED: ceFAZolin 2 GM VIAL ONE (11:20)
[2023-02-07] MEDS ORDERED: LACTATED RINGERS 1,000 ML IV ONE ×2 (11:45→13:41)
--- NOTE | 2023-02-07 12:07 | ANESTHESIA ---
Pre-Anesthesia VS, & Labs - Diagnosis umbilical hernia - Procedure open umbilical hernia repair with mesh Vital Signs: Temp Pulse Resp BP Pulse Ox O2 Flow Rate 36.6 C 105 H 20 195/96 H 93 02/07/23 11:28 02/07/23 11:28 02/07/23 11:28 02/07/23 11:28 02/07/23 11:28 Height: 5 ft 7 in Weight (kg): 83.3 kg Body Mass Index: 28.8 BMI Classification: Overweight - NPO >8 hours Home Medications and Allergies Home Medications: Ambulatory Orders Tamsulosin [Flomax] 0.4 mg PO DAILY 02/01/23 Valsartan 160 mg PO DAILY 02/01/23 predniSONE [Deltasone] 5 mg PO DAILY 02/01/23 Metoprolol Succinate 25 mg PO DAILY 07/25/16 Aspirin [[place] Aspirin] 81 mg PO DAILY 01/19/22 Diltiazem HCl [Cardizem] 120 mg PO DAILY 01/19/22 Ipratropium/Albuterol [Combivent Respimat] 1 puffs INH QID 01/19/22 Tamsulosin [Flomax] 0.4 mg PO DAILY 02/01/23 Valsartan 160 mg PO DAILY 02/01/23 predniSONE [Deltasone] 5 mg PO DAILY 02/01/23 Allergies/Adverse Reactions: Allergies Allergy/AdvReac Type Severity Reaction Status Date / Time No Known Drug Allergies Allergy Verified 01/19/22 10:16 Anes History & Medical History - Anesthetic History Anesthesia Complications: reports: No previous complications - Medical History Cardiovascular: reports: Hypertension, Murmur Pulmonary: reports: COPD, Shortness of breath Gastrointestinal: reports: Colon polyps Urinary: reports: Benign prostate hypertrophy, Other Neuro: reports: None Musculoskeletal: reports: Gout Endocrine/Autoimmune: reports: None Blood Disorders: reports: None Skin: reports: None Smoking Status: Former smoker Psychosocial: reports: No issues indicated History of Cancer?: Yes (lung s/p radiation and chemo) - Surgical History General: reports: Colonoscopy Eyes Ears Nose Throat (EENT): reports: Detached retina repair, To nsil/Adenoidectomy Cardiothoracic: reports: Lobectomy Urologic: reports: Prostatic surgery Exam General: Alert, Oriented x3, Cooperative, No acute distress Dental: WNL Mouth Openin Fingerbreadth Neck Mobility: Normal Mallampati classification: III Thyromental Distance: 4-6 cm Respiratory: Lungs clear, No respiratory distress, Decreased breath sounds Mental/Cognitive Status: Alert/Oriented X3, Normal for patient Plan Anesthesia Type: General Consent for Procedure(s) Verified and Reviewed: Yes Code Status: Attempt Resuscitation ASA classification: 3-Severe systemic disease Is this case an emergency?: No
[2023-02-07] MEDS ORDERED: fentaNYL 100 MCG/2 ML VIAL IVP PRN (12:10)
[2023-02-07] MEDS ORDERED: MORPHINE 2 MG/ML CARPUJECT IVP PRN (12:10)
[2023-02-07] MEDS ORDERED: ATROPINE ABBOJECT 1 MG/10 ML SYRINGE IVP PRN (12:10)
[2023-02-07] MEDS ORDERED: NALOXONE 0.4 MG/ML VIAL IVP PRN (12:10)
[2023-02-07] MEDS ORDERED: ONDANSETRON 4 MG/2 ML VIAL IVP PRN ×2 (12:10→13:43)
[2023-02-07] MEDS ORDERED: HYDROmorphone 0.5 MG/0.5 ML SYRINGE IVP PRN ×2 (12:10→13:43)
--- NOTE | 2023-02-07 12:11 | HISTORY & PHYSICAL EXAMINATION ---
Chief Complaint - Chief Complaint Chief Complaint: painful umbilical hernia bulge History of Present Illness - History Obtained From Records Reviewed: yes History obtained from: pt Exam Limitations: none - History of Present Illness HPI Comment/Other: painful umbilical hernia bulge with history incarcerated bowel History - Past Medical History Cardiovascular: reports: Hypertension, Murmur Respiratory: reports: COPD, Shortness of breath Neuro: reports: None Endocrine/Autoimmune: reports: None GI: reports: Colon polyps : reports: Benign prostate hypertrophy, Other HEENT: reports: Chronic vision loss, Chronic hearing loss Psych: reports: Anxiety Musculoskeletal: reports: Gout Derm: reports: None MRSA Hx?: No - Past Surgical History General: reports: Colonoscopy Cardiovascular: reports: Lobectomy HEENT: reports: Detached retina repair, Tonsil/Adenoidectomy - Family & Social History Family History: Mother: , Cancer, CVA/TIA, Father: , CAD, COPD/Emphysema, OR Family History Comment/Other: He reports his father had a history of heart disease. He from myocardial infarction. Living Situation: Alone Social History Notes: He lives at home alone. His daughter, Fannie, is present at bedside. He smoked a pack a day for about 15 years but quit over 30 years ago. He drinks 1 glass of wine each night. - Substance History Use: Uses substance without health or social issues: NONE - POLST Patient has POLST: Yes POLST Status: DNR Meds/Allgy - Home Medications Home Medications: Ambulatory Orders Medication Instructions Recorded Confirmed Metoprolol Succinate 25 mg PO DAILY 07/25/16 02/07/23 Aspirin [[place] Aspirin] 81 mg PO DAILY 01/19/22 02/07/23 Diltiazem HCl [Cardizem] 120 mg PO DAILY 01/19/22 02/07/23 Ipratropium/Albuterol [Combivent 1 puffs INH QID 01/19/22 02/07/23 Respimat] Tamsulosin [Flomax] 0.4 mg PO DAILY 02/01/23 02/07/23 Valsartan 160 mg PO DAILY 02/01/23 02/07/23 predniSONE [Deltasone] 5 mg PO DAILY 02/01/23 02/07/23 - Allergies Allergies/Adverse Reactions: Allergies Allergy/AdvReac Type Severity Reaction Status Date / Time No Known Drug Allergies Allergy Verified 01/19/22 10:16 Exam - Vital Signs Reviewed Vital Signs: Yes Vital Signs: Vital Signs x48h Temp Pulse Resp BP Pulse Ox 02/07/23 11:28 36.6 C 105 H 20 195/96 H 93 - Physical Exam General Appearance: positive: No acute distress, Alert Eyes Bilateral: positive: Normal inspection, EOMI ENT: positive: No signs of dehydration Neck: positive: No JVD, Trachea midline Respiratory: positive: No respiratory distress Cardiovascular: positive: Regular rate & rhythm Abdomen: positive: No distention, Other (umbilical hernia and large diastasis present) Neurologic/Psychiatric: positive: Oriented x3 Conclusion/Plan - Problem List (1) Incarcerated umbilical hernia Conclusion/Plan: plan open repair. parq held and consent obtained
[2023-02-07] MEDS ORDERED: PROPOFOL 200 MG/20 ML VIAL IVP ONE (12:17)
[2023-02-07] MEDS ORDERED: ROCURONIUM 50 MG/5 ML VIAL ONE (12:18)
[2023-02-07] MEDS ORDERED: fentaNYL 100 MCG/2 ML VIAL ONE (12:18)
[2023-02-07] MEDS ORDERED: BUPIVACAINE 0.25% PF 30 ML VIAL SUBQ ONE ×2 (12:43)
[2023-02-07] MEDS ORDERED: ONDANSETRON 4 MG/2 ML VIAL ONE (12:45)
[2023-02-07] MEDS ORDERED: DEXAMETHASONE 4 MG/ML VIAL ONE (12:45)
[2023-02-07] MEDS ORDERED: PHENYLEPHRINE 10 MG/ML VIAL ONE (12:46)
[2023-02-07] MEDS ORDERED: BUPIVACAINE 0.25% PF 30 ML VIAL ONE (13:00)
[2023-02-07] MEDS ORDERED: LACTATED RINGERS 1,000 ML IV SCH (13:00)
[2023-02-07] MEDS ORDERED: SUGAMMADEX 200 MG/2 ML VIAL IVP ONE (13:22)
[2023-02-07] MEDS ORDERED: IPRATROPIUM/ALBUTEROL 3 ML NEB INH ONE ×2 (13:27→13:45)
[2023-02-07] MEDS ORDERED: HYDROcod/ACETAM 10 MG/325 MG TABLET PO PRN (13:43)
[2023-02-07] MEDS ORDERED: HYDROcod/ACETAM 5/325 MG TABLET PO PRN (13:43)
--- NOTE | 2023-02-07 13:51 | OPERATIVE REPORT ---
Operative Report - General Procedure Date: 02/07/23 Planned Procedure: umbilical hernia repair with mesh Pre-Op Diagnosis: symptomatic umbilical hernia Procedure Performed: umbilical hernia repair with mesh Post Op Diagnosis: same - Procedure Note Primary Surgeon: ana maria herron Anesthesia Technique: General ET tube, Local Pathology: none Estimated Blood Loss (mL): 1 Drain/Tube Type: Other (none) Indications: history incarceration with small bowel Findings: 2.5 cm defect. 2 x 4.75 inch mesh Complications: none - Other Other Information/Narrative: The patient was properly identified brought to the operating room and placed in supine position. Sequential compression devices were placed. General anesthesia was induced. The patient was prepped and draped in a sterile fashion and given preoperative antibiotics. Local anesthetic was given throughout the procedure. A supraumbilical incision was made and extended left lateral of the umbilicus. Dissection proceeded sharply. Subcutaneous tissue was mobilized away from the fascial defect by 2 to 3 cm in all directions. Umbilical skin was sharply excised away from the hernia sac or peritoneum. The peritoneum was then carefully released from the fascial defect edge with cutting current cautery. A preperitoneal space was developed for mesh placement. Polypropylene mesh was cut to size approximately 2 x 4.75 inches and placed preperitoneal. The mesh was secured with 9 interrupted 0 Ethibond sutures. The mesh lay in good position without tension. fascia was closed over the mesh with additional ethibond sutures. Subcutaneous tissue was reapproximated with interrupted 2-0 Vicryl suture. Umbilical skin was tacked back down to fascia with interrupted 2-0 Vicryl suture. Buried interrupted subdermal 3-0 Vicryl sutures were then placed. Skin was closed with a running 4-0 Monocryl subcuticular suture. Dressing was applied. Patient tolerated the procedure the procedure well was awakened and brought to recovery in good condition.
--- NOTE | 2023-02-07 14:04 | ANESTHESIA POST OP EVALUATION ---
Anesthesia Post Eval - Post Anesthesia Eval Vitals: Last Vital Signs Temp 36.9 C 02/07/23 13:56 Pulse 100 02/07/23 14:02 Resp 20 02/07/23 14:02 BP 161/82 H 02/07/23 14:02 Pulse Ox 93 02/07/23 14:02 O2 Flow Rate CV Function Including HR & BP: Stable Pain Control: Satisfactory Nausea & Vomiting: Negative Mental Status: Baseline Respiratory Status: Airway Patent Hydration Status: Satisfactory Anesthesia Complications: None
[2023-02-07 14:24] VITALS: BP 177/93
== END 2023-02-07 11:13 | disposition home or self-care (01) ==
LOC: SDS 11:12
PROVIDERS: ATTEND Surgery
DX: K42.9 Umbilical hernia without obstruction or gangrene (principal); J44.9 Chronic obstructive pulmonary disease, unspecified; Z90.2 Acquired absence of lung [part of]; Z87.891 Personal history of nicotine dependence; Z85.118 Personal history of other malignant neoplasm of bronchus and lung
CPT/HCPCS: 49591; C1781; J7120

== ENCOUNTER 2023-04-25 07:05 | Outpatient (CLI) | payer MEDICARE ==
[2023-04-25 14:27] LABS: BASOPHILS % (AUTO) 0.4 %; EOSINOPHILS # (AUTO) 0.1 10^3/uL (0.0-0.7); EOSINOPHILS % (AUTO) 2.4 %; HCT - HEMATOCRIT 45.6 % (42.0-52.0); HGB - HEMOGLOBIN 14.5 g/dL (14.0-18.0); LYMPHOCYTES # (AUTO) 0.6 10^3/uL (1.5-3.5); LYMPHOCYTES % (AUTO) 10.8 %; MEAN CORPUSCULAR HEMOGLOBIN 29.4 pg (27.0-31.0); MEAN CORPUSCULAR HGB CONC 31.8 g/dL (32.0-36.0); MEAN CORPUSCULAR VOLUME 92.5 fL (80.0-94.0); MEAN PLATELET VOLUME 9.1 fL (7.4-11.4); MONOCYTES # (AUTO) 0.4 10^3/uL (0.0-1.0); NEUTROPHILS # (AUTO) 4.3 10^3/uL (1.5-6.6); NEUTROPHILS % (AUTO) 78.2 %; PLT - PLATELET COUNT 196 10^3/uL (130-450); RED BLOOD COUNT 4.93 10^6/uL (4.70-6.10); RED CELL DISTRIBUTION WIDTH 13.7 % (12.0-15.0); WHITE BLOOD COUNT 5.5 x10^3/uL (4.8-10.8)
[2023-04-25 14:46] LABS: ALBUMIN/GLOBULIN RATIO 1.4 (1.0-2.2); ALKALINE PHOSPHATASE 77 IU/L (42-121); ALT ALANINE AMINOTRANSFERASE 8 IU/L (10-60); AST ASPARTATE AMINOTRANSFERASE 18 IU/L (10-42); BILIRUBIN,TOTAL 1.4 mg/dL (0.2-1.0); BUN - BLOOD UREA NITROGEN 17 mg/dL (6-20); CALCIUM 9.4 mg/dL (8.5-10.3); CARBON DIOXIDE - CO2 28 mmol/L (21-32); CHLORIDE 105 mmol/L (101-111); CHOL/HDL RATIO 2.5 (<5.0); CHOLESTEROL 193 mg/dL; CREATININE 0.7 mg/dL (0.6-1.3); GFR - MDRD 108 (>89); GLUCOSE 96 mg/dL (74-104); HDL CHOLESTEROL 76 mg/dL; LDL CHOLESTEROL,CALCULATED 101 mg/dL; LDL/HDL RATIO 1.3 (<3.6); POTASSIUM 4.2 mmol/L (3.5-4.5); SODIUM 136 mmol/L (135-145); TOTAL PROTEIN 6.8 g/dL (6.4-8.9); TRIGLYCERIDES 82 mg/dL (48-352); VLDL CHOLESTEROL 16 mg/dL
== END 2023-04-25 07:06 | disposition home or self-care (01) ==
LOC: LAB.S 07:05
PROVIDERS: ATTEND Registered Nurse
DX: N40.0 Benign prostatic hyperplasia without lower urinary tract symptoms (principal); Z79.899 Other long term (current) drug therapy; Z13.220 Encounter for screening for lipoid disorders
CPT/HCPCS: 36415; 80053; 80061; 83721; 84153; 85025

== ENCOUNTER 2023-07-11 10:46 | Outpatient (CLI) | payer MEDICARE | END 2023-07-11 10:47 | disposition short-term general hospital (02) | LOC: EMS 10:46 | DX: R06.02 Shortness of breath (principal); R60.0 Localized edema; I16.9 Hypertensive crisis, unspecified; R00.0 Tachycardia, unspecified; Z99.81 Dependence on supplemental oxygen | CPT/HCPCS: A0425; A0427 ==

== ENCOUNTER 2023-07-20 11:12 | Outpatient (CLI) | payer MEDICARE ==
[2023-07-20 11:34] LABS: BASOPHILS % (AUTO) 0.2 %; EOSINOPHILS % (AUTO) 0.2 %; HCT - HEMATOCRIT 46.4 % (42.0-52.0); HGB - HEMOGLOBIN 14.9 g/dL (14.0-18.0); LYMPHOCYTES # (AUTO) 0.4 10^3/uL (1.5-3.5); MEAN CORPUSCULAR HEMOGLOBIN 29.2 pg (27.0-31.0); MEAN CORPUSCULAR HGB CONC 32.1 g/dL (32.0-36.0); MEAN PLATELET VOLUME 8.8 fL (7.4-11.4); MONOCYTES # (AUTO) 0.3 10^3/uL (0.0-1.0); MONOCYTES % (AUTO) 2.9 %; NEUTROPHILS # (AUTO) 9.9 10^3/uL (1.5-6.6); NEUTROPHILS % (AUTO) 92.4 %; PLT - PLATELET COUNT 229 10^3/uL (130-450); RED CELL DISTRIBUTION WIDTH 13.5 % (12.0-15.0); WHITE BLOOD COUNT 10.7 x10^3/uL (4.8-10.8)
[2023-07-20 12:15] LABS: ALBUMIN 4.3 g/dL (3.2-5.5); ALBUMIN/GLOBULIN RATIO 1.7 (1.0-2.2); ALKALINE PHOSPHATASE 74 IU/L (42-121); ALT ALANINE AMINOTRANSFERASE 23 IU/L (10-60); AST ASPARTATE AMINOTRANSFERASE 28 IU/L (10-42); BILIRUBIN,TOTAL 1.3 mg/dL (0.2-1.0); BUN - BLOOD UREA NITROGEN 27 mg/dL (6-20); CALCIUM 9.6 mg/dL (8.5-10.3); CARBON DIOXIDE - CO2 30 mmol/L (21-32); CHLORIDE 97 mmol/L (101-111); CHOL/HDL RATIO 2.6 (<5.0); CHOLESTEROL 216 mg/dL; CREATININE 0.9 mg/dL (0.6-1.3); GFR - MDRD 81 (>89); GLUCOSE 125 mg/dL (74-104); HDL CHOLESTEROL 83 mg/dL; LDL CHOLESTEROL,CALCULATED 103 mg/dL; LDL/HDL RATIO 1.2 (<3.6); POTASSIUM 4.4 mmol/L (3.5-4.5); SODIUM 134 mmol/L (135-145); TOTAL PROTEIN 6.8 g/dL (6.4-8.9); TRIGLYCERIDES 152 mg/dL (48-352); VLDL CHOLESTEROL 30 mg/dL
== END 2023-07-20 11:13 | disposition home or self-care (01) ==
LOC: LAB 11:12
PROVIDERS: ATTEND Registered Nurse
DX: N40.0 Benign prostatic hyperplasia without lower urinary tract symptoms (principal); Z13.220 Encounter for screening for lipoid disorders; Z79.899 Other long term (current) drug therapy
CPT/HCPCS: 36415; 80053; 80061; 83721; 84153; 85025

== ENCOUNTER 2023-07-22 14:09 | Outpatient (CLI) | payer MEDICARE | END 2023-07-22 14:10 | disposition home or self-care (01) | LOC: LAB.S 14:09 | PROVIDERS: ATTEND Registered Nurse | DX: I50.9 Heart failure, unspecified (principal) | CPT/HCPCS: 36415; 83880 ==

== ENCOUNTER 2023-07-29 08:14 | Outpatient (CLI) | payer MEDICARE ==
--- NOTE | 2023-07-29 09:54 | CT Report ---
PROCEDURE: CHEST WO INDICATIONS: LUNG CA TECHNIQUE: Noncontrast 1mm axial images were acquired from the pulmonary apices to the posterior costophrenic an gles. Axial 5 mm soft tissue kernel reconstructions were performed as well as 8 mm axial MIP and cor onal and sagittal 5 mm reformations. For radiation dose reduction, the following was used: automate d exposure control, adjustment of mA and/or kV according to patient size. COMPARISON: CT chest 07/18/2022, 11/06/2017. FINDINGS: Image quality: Excellent. Lungs and pleura: Left upper lobe lobectomy. Left hemithorax volume loss. Similar postoperative dietz es. No recurrent mass is identified. No significant pulmonary nodules. Moderate emphysematous change. No acute airspace opacity. No pleural effusion. No pneumothorax. Mediastinum: Heart size is normal. Three-vessel coronary artery calcifications. No pericardial effusi on. No large vessel abnormality. No mediastinal adenopathy by size criteria. Chest wall and lower neck: Left upper thoracotomy. Pleural mass. Thyroid is unremarkable. No axillary or supraclavicular adenopathy by size. Upper back subcutaneous cyst measuring 2.8 cm, (2/12), unchan ged. This likely represents a sebaceous cyst. Bones: No aggressive osseous abnormality. Upper Abdomen: Large right renal low-density cyst. IMPRESSION: 1. Left upper lobectomy. No recurrent mass seen. 2. No adenopathy. Reviewed by: Durga Nayak MD on 07/29/2023 9:53 AM PST Approved by: Durga Nayak MD on 07/29/2023 9:53 AM PST Station ID: [id number]
== END 2023-07-29 08:15 | disposition home or self-care (01) ==
LOC: DI 08:14
PROVIDERS: ATTEND Internal Medicine
DX: C34.92 Malignant neoplasm of unspecified part of left bronchus or lung (principal); Z90.2 Acquired absence of lung [part of]

== ENCOUNTER 2023-10-16 09:32 | Outpatient (CLI) | payer MEDICARE ==
[2023-10-16 14:28] LABS: BASOPHILS # (AUTO) 0.1 10^3/uL (0.0-0.1); EOSINOPHILS # (AUTO) 0.2 10^3/uL (0.0-0.7); EOSINOPHILS % (AUTO) 2.3 %; HCT - HEMATOCRIT 52.3 % (42.0-52.0); HGB - HEMOGLOBIN 15.4 g/dL (14.0-18.0); LYMPHOCYTES # (AUTO) 0.7 10^3/uL (1.5-3.5); LYMPHOCYTES % (AUTO) 10.4 %; MEAN CORPUSCULAR HEMOGLOBIN 28.4 pg (27.0-31.0); MEAN CORPUSCULAR HGB CONC 29.4 g/dL (32.0-36.0); MEAN CORPUSCULAR VOLUME 96.3 fL (80.0-94.0); MEAN PLATELET VOLUME 9.7 fL (7.4-11.4); MONOCYTES # (AUTO) 0.6 10^3/uL (0.0-1.0); MONOCYTES % (AUTO) 8.6 %; NEUTROPHILS # (AUTO) 5.4 10^3/uL (1.5-6.6); NEUTROPHILS % (AUTO) 77.6 %; PLT - PLATELET COUNT 228 10^3/uL (130-450); RED BLOOD COUNT 5.43 10^6/uL (4.70-6.10); RED CELL DISTRIBUTION WIDTH 13.6 % (12.0-15.0)
[2023-10-16 15:47] LABS: ALBUMIN/GLOBULIN RATIO 1.7 (1.0-2.2); ALKALINE PHOSPHATASE 86 IU/L (42-121); ALT ALANINE AMINOTRANSFERASE 7 IU/L (10-60); AST ASPARTATE AMINOTRANSFERASE 16 IU/L (10-42); BILIRUBIN,TOTAL 1.3 mg/dL (0.2-1.0); BUN - BLOOD UREA NITROGEN 19 mg/dL (6-20); CALCIUM 9.2 mg/dL (8.5-10.3); CARBON DIOXIDE - CO2 31 mmol/L (21-32); CHLORIDE 99 mmol/L (101-111); CHOL/HDL RATIO 2.5 (<5.0); CHOLESTEROL 185 mg/dL; CREATININE 0.7 mg/dL (0.6-1.3); GFR - MDRD 108 (>89); GLUCOSE 65 mg/dL (74-104); HDL CHOLESTEROL 74 mg/dL; LDL CHOLESTEROL,CALCULATED 91 mg/dL; LDL/HDL RATIO 1.2 (<3.6); POTASSIUM 4.6 mmol/L (3.5-4.5); SODIUM 135 mmol/L (135-145); TOTAL PROTEIN 6.4 g/dL (6.4-8.9); TRIGLYCERIDES 100 mg/dL (48-352); VLDL CHOLESTEROL 20 mg/dL
== END 2023-10-16 09:33 | disposition home or self-care (01) ==
LOC: LAB.S 09:32
PROVIDERS: ATTEND Registered Nurse
DX: N40.0 Benign prostatic hyperplasia without lower urinary tract symptoms (principal); Z79.899 Other long term (current) drug therapy; Z13.220 Encounter for screening for lipoid disorders
CPT/HCPCS: 36415; 80053; 80061; 83721; 84153; 85025

== ENCOUNTER 2024-01-13 08:08 | Outpatient (CLI) | payer MEDICARE ==
[2024-01-13 19:11] LABS: ESTIMATED AVERAGE GLUCOSE 117 mg/dL (70-100); HEMOGLOBIN A1c% 5.7 % (4.27-6.07)
== END 2024-01-13 08:09 | disposition home or self-care (01) ==
LOC: LAB.S 08:08
PROVIDERS: ATTEND Registered Nurse
DX: E11.9 Type 2 diabetes mellitus without complications (principal)
CPT/HCPCS: 36415; 83036

== ENCOUNTER 2024-01-17 11:11 | Outpatient (CLI) | payer MEDICARE ==
--- NOTE | 2024-01-17 12:07 | XRAY Report ---
PROCEDURE: Chest 2V INDICATIONS: CHF,HYPOXEMIA,SHORTNESS OF BREATH TECHNIQUE: 2 views of the chest were acquired. COMPARISON: Chest radiographs 06/03/[address] 07/29/2023 FINDINGS: Surgical changes and devices: Surgical clips are seen projecting over the left chest. Status post pa rtial left lung resection. Lungs and pleura: Volume loss is again seen in the left hemithorax with fluid or scarring at the navdeep g apex and chronic deformity of the left chest wall. Mild interstitial prominence is seen in the righ t lung. No focal consolidation. No pleural effusion or pneumothorax. Mediastinum: Mediastinal contours appear normal. Heart size is normal. Bones and chest wall: No suspicious bony lesions. Overlying soft tissues appear unremarkable. IMPRESSION: 1.Stable postsurgical changes in the left hemithorax. 2.Mild interstitial prominence in the right lung is nonspecific but could indicate mild edema or pneu monia, including with atypical or viral agents. Reviewed by: Jourdan Braxton MD on 01/17/2024 12:06 PM PDT Approved by: Jourdan Braxton MD on 01/17/2024 12:06 PM PDT Station ID: [id number]
[2024-01-17 15:13] LABS: BASOPHILS % (AUTO) 0.3 %; EOSINOPHILS # (AUTO) 0.2 10^3/uL (0.0-0.7); EOSINOPHILS % (AUTO) 2.8 %; HCT - HEMATOCRIT 46.6 % (42.0-52.0); HGB - HEMOGLOBIN 14.6 g/dL (14.0-18.0); LYMPHOCYTES # (AUTO) 0.6 10^3/uL (1.5-3.5); LYMPHOCYTES % (AUTO) 7.8 %; MEAN CORPUSCULAR HEMOGLOBIN 28.1 pg (27.0-31.0); MEAN CORPUSCULAR HGB CONC 31.3 g/dL (32.0-36.0); MEAN CORPUSCULAR VOLUME 89.6 fL (80.0-94.0); MONOCYTES # (AUTO) 0.6 10^3/uL (0.0-1.0); NEUTROPHILS # (AUTO) 6.5 10^3/uL (1.5-6.6); NEUTROPHILS % (AUTO) 81.8 %; PLT - PLATELET COUNT 224 10^3/uL (130-450); RED CELL DISTRIBUTION WIDTH 14.5 % (12.0-15.0)
[2024-01-17 16:12] LABS: CALCIUM 9.7 mg/dL (8.5-10.3); CREATININE 0.7 mg/dL (0.6-1.3); POTASSIUM 4.4 mmol/L (3.5-4.5)
== END 2024-01-17 11:12 | disposition home or self-care (01) ==
LOC: DI.S 11:11
PROVIDERS: ATTEND Registered Nurse
DX: I50.9 Heart failure, unspecified (principal); R09.02 Hypoxemia; R06.02 Shortness of breath
CPT/HCPCS: 36415; 80048; 83880; 84484; 85025; 85379

== ENCOUNTER 2024-01-19 12:36 | Emergency (ER) | payer MEDICARE ==
--- NOTE | 2024-01-19 13:09 | ED Physician Documentation ---
PD HPI DYSPNEA - Stated complaint Stated Complaint: SOA - Chief complaint Chief Complaint: Resp - History obtained from History obtained from: Patient - History of Present Illness Timing - onset: How many days ago (3-4) Timing - onset during: Rest Timing - duration: Days Timing - details: Gradual onset, Still present Inciting event(s): URI Improved by: O2, Inhaler/neb, Rest, Sitting up Worsened by: Exertion, Laying flat, Coughing Associated symptoms: Cough, Wheezing Similar symptoms before: Diagnosis (COPD) Recently seen: Clinic - Additional information Additional information: Denzel Fisher is an 83-year-old male who presents to the emergency department with a chief complaint of increasing exertional dyspnea. He has a history of COPD and uses an ipratropium albuterol inhaler. He states that he has had problems with this shortness of breath previously and when he has taken some prednisone and antibiotic she usually has gotten better. He recalls having a period of time for more than a month where he was not having to use his inhaler at all. He is complaining now that he is having enough shortness of breath that he is not able to sleep without sitting up in his recliner and he is complaining that he is getting up to go to the bathroom multiple times throughout the night. He has a dribble of his stream and it takes quite some time and most of his urine comes out at night. Review of Systems Constitutional: denies: Fever Eyes: denies: Decreased vision Ears: denies: Ear pain Nose: reports: Congestion Throat: denies: Sore throat Cardiac: denies: Chest pain / pressure, Palpitations Respiratory: reports: Dyspnea, Cough, Wheezing GI: denies: Nausea, Vomiting, Constipation, Diarrhea : reports: Other (poor stream). denies: Dysuria, Frequency Skin: denies: Rash Musculoskeletal: denies: Neck pain, Back pain, Extremity pain Neurologic: denies: Generalized weakness, Focal weakness, Numbness PD PAST MEDICAL HISTORY - Past Medical History Cardiovascular: Hypertension, Murmur Respiratory: COPD, Shortness of breath Neuro: None Endocrine/Autoimmune: None GI: Colon polyps : Benign prostate hypertrophy, Other HEENT: Chronic vision loss, Chronic hearing loss Psych: Anxiety Musculoskeletal: Gout Derm: None - Past Surgical History Past Surgical History: Yes General: Colonoscopy Cardiovascular: Lobectomy HEENT: Detached retina repair, Tonsil/Adenoidectomy - Present Medications Home Medications: Ambulatory Orders Medication Instructions Recorded Confirmed Metoprolol Succinate 25 mg PO DAILY 07/25/16 02/07/23 Aspirin [[place] Aspirin] 81 mg PO DAILY 01/19/22 02/07/23 Diltiazem HCl [Cardizem] 120 mg PO DAILY 01/19/22 02/07/23 Ipratropium/Albuterol [Combivent 1 puffs INH QID 01/19/22 02/07/23 Respimat] Tamsulosin [Flomax] 0.4 mg PO DAILY 02/01/23 02/07/23 Valsartan 160 mg PO DAILY 02/01/23 02/07/23 predniSONE [Deltasone] 5 mg PO DAILY 02/01/23 02/07/23 HYDROcod/ACETAM 5/325 [[place] 5/325] 1 each PO Q6H PRN #20 tablet 02/07/23 HYDROcod/ACETAM 5/325 [[place] 5/325] 1 each PO Q6H PRN #25 tablet 02/07/23 Doxycycline [Vibramycin] 100 mg PO BID #14 tablet 06/03/23 predniSONE [Deltasone] 20 mg PO [id number] #21 tab 06/03/23 Azithromycin [Zithromax] 250 mg PO DAILY #6 tablet 01/19/24 predniSONE [Deltasone] 10 mg PO ONCE #26 tablet 01/19/24 - Allergies Allergies/Adverse Reactions: Allergies Allergy/AdvReac Type Severity Reaction Status Date / Time No Known Drug Allergies Allergy Verified 01/19/24 13:18 - Social History Does the pt smoke?: No Smoking Status: Never smoker Does the pt drink ETOH?: No Does the pt have substance abuse?: No - Immunizations Immunizations are current?: Yes - POLST Patient has POLST: Yes POLST Status: DNR PD ED PE NORMAL - Vitals Vital signs reviewed: Yes (tachypneia and hypertension ) - General General: Alert and oriented X 3, Well developed/nourished - HEENT HEENT: Atraumatic, PERRL, EOMI - Neck Neck: Supple, no meningeal sign, No bony TTP - Cardiac Cardiac: RRR, No murmur - Respiratory Respiratory: Other (Tachypneic at rest with reduced breath sounds and bibasilar rhonchi.) - Abdomen Abdomen: Soft, Non tender - Back Back: No CVA TTP, No spinal TTP - Derm Derm: Normal color, Warm and dry, No rash - Extremities Extremities: No deformity, No edema - Neuro Neuro: Alert and oriented X 3, cyanide pot hardener 2-12 intact, No motor deficit, No sensory deficit, Normal speech Eye Opening: Spontaneous Motor: Obeys Commands Verbal: Oriented GCS Score: 15 - Psych Psych: Normal mood, Normal affect Results - Vitals Vitals: Vital Signs - 24 hr 01/19/24 01/19/24 01/19/24 12:46 12:55 13:20 Temperature 36.7 C Heart Rate 100 100 85 Respiratory 30 H 32 H 26 H Rate Blood Pressure 159/101 H 167/86 H O2 Saturation 92 92 96 If not protocol 3 : Oxygen Flow, liters/minute 01/19/24 01/19/24 01/19/24 13:30 13:51 14:16 Temperature Heart Rate 95 96 96 Respiratory 22 26 H Rate Blood Pressure 140/127 H O2 Saturation 94 If not protocol 1.5 1.5 : Oxygen Flow, liters/minute 01/19/24 01/19/24 01/19/24 14:30 15:00 15:39 Temperature Heart Rate 95 95 92 Respiratory 22 19 24 Rate Blood Pressure 133/77 H 153/76 H 160/94 H O2 Saturation 94 94 95 If not protocol 3 3 2 : Oxygen Flow, liters/minute Oxygen O2 Source Nasal cannula Oxygen Flow Rate 3 - Labs Labs: Laboratory Tests 01/19/24 01/19/24 01/19/24 13:00 13:00 13:00 WBC 7.6 RBC 5.20 Hgb 14.4 Hct 46.1 MCV 88.7 MCH 27.7 MCHC 31.2 L RDW 14.4 Plt Count 222 MPV 9.0 Neut # (Auto) 6.0 Lymph # (Auto) 0.6 L [place] # (Auto) 0.7 Eos # (Auto) 0.3 Baso # (Auto) 0.0 Absolute Nucleated RBC 0.00 Nucleated RBC % 0.0 Sodium 135 Potassium 4.2 Chloride 102 Carbon Dioxide 27 Anion Gap 6.0 BUN 18 Creatinine 0.7 Estimated GFR (MDRD) 108 Glucose 85 Calcium 9.5 Total Bilirubin 1.6 H AST 30 ALT 12 Alkaline Phosphatase 102 B-Natriuretic Peptide 125 H Total Protein 7.3 Albumin 4.2 Globulin 3.1 Albumin/Globulin Ratio 1.4 Lipase 13 - Rads (name of study) chest Relevant Findings:: Prelim report reviewed (Impression: No acute cardiopulmonary findings. No change in prior chronic left thorax surgical findings.), EMP independent interpretation of test (To me the right lower chest appears to have infiltrate and does not appear to be consistent with simple atelectasis.) Procedures - IVC sono (time) 1320 Bedside IVC sono: IVC measures (cm) (1.65), IVC collapsed c insp (cm) (1025), Collapsibility index (0.24), Euvolemia PD Medical Decision Making - ED course Complexity details: reviewed old records, reviewed results, re-evaluated patient, considered differential, d/w patient Reviewed Lab Results: We reviewed a complete blood count showing a normal white blood cell count, normal hemoglobin, hematocrit and platelets. Chemistries showed normal electrolytes, normal kidney and liver function. BNP mildly elevated 125. These laboratory results are consistent with primarily reactive airway disease as an etiology for this patient's dyspnea. ED course: Denzel Fisher is an 83-year-old male who has developed a cough productive of sputum and increasing exertional dyspnea. He is having enough dyspnea that he is having to sleep in his easy chair sitting up. He is having difficulty sleeping. He is treated here in the emergency department with a DuoNeb treatment 10 mg of dexamethasone and 1 g of Rocephin intravenously. He has marked improvement in his breathing. I did evaluate the patient for congestive heart failure and found that he had a minimally elevated BNP he did not appear to have pulmonary edema on his chest x-ray and he has a collapsing IVC with a collapsibility index of 0.24. This all rules against CHF as being the primary intermodal truck driver of this patient's exertional dyspnea and supine dyspnea. His chest x-ray is read as no acute change and I believe the fullness in the right lower lobe is increased from an x-ray done 2 days ago and is consistent for an infiltrate as a pneumonic process as an explanation for the patients increasing symptoms. Departure - Departure Disposition: 01 Home, Self Care Clinical Impression: COPD with exacerbation Pneumonia Qualifiers: Pneumonia type: due to unspecified organism Laterality: right Lung location: lower lobe of lung Qualified Code(s): J18.9 - Pneumonia, unspecified organism Condition: Stable Instructions: ED COPD Flare, ED Pneumonia Adult Follow-Up: Meka Estrella ARNP [Credentialed Staff Provider] - Simeon Castro MD [Provider Admit Priv/Credential] - Prescriptions: predniSONE [Deltasone] 10 mg PO ONCE #26 tablet Azithromycin [Zithromax] 250 mg PO DAILY #6 tablet Comments: Denzel, today it looks like you have a patch of pneumonia in your right lower lung and reactive airway disease. Today we have given you a dose of dexamethasone and we are expecting your breathing to be quite a bit better this evening. I have E scribed some antibiotic and prednisone to the [facility] in [place]. As far as your sleep I recommend using some Benadryl available [id number] 25 mg at night for sleep. As far as your urination and difficulty with a poor stream my recommendation is to continue taking your tamsulosin and to follow-up with Dr. Castro for further evaluation. Discharge Date/Time: 01/19/24 15:45
[2024-01-19 13:25] LABS: BASOPHILS % (AUTO) 0.3 %; EOSINOPHILS # (AUTO) 0.3 10^3/uL (0.0-0.7); EOSINOPHILS % (AUTO) 3.9 %; HCT - HEMATOCRIT 46.1 % (42.0-52.0); HGB - HEMOGLOBIN 14.4 g/dL (14.0-18.0); LYMPHOCYTES # (AUTO) 0.6 10^3/uL (1.5-3.5); LYMPHOCYTES % (AUTO) 8.3 %; MEAN CORPUSCULAR HEMOGLOBIN 27.7 pg (27.0-31.0); MEAN CORPUSCULAR HGB CONC 31.2 g/dL (32.0-36.0); MEAN CORPUSCULAR VOLUME 88.7 fL (80.0-94.0); MONOCYTES # (AUTO) 0.7 10^3/uL (0.0-1.0); MONOCYTES % (AUTO) 8.5 %; NEUTROPHILS % (AUTO) 78.7 %; PLT - PLATELET COUNT 222 10^3/uL (130-450); RED CELL DISTRIBUTION WIDTH 14.4 % (12.0-15.0); WHITE BLOOD COUNT 7.6 x10^3/uL (4.8-10.8)
[2024-01-19 13:35] LABS: ALBUMIN 4.2 g/dL (3.2-5.5); ALBUMIN/GLOBULIN RATIO 1.4 (1.0-2.2); BILIRUBIN,TOTAL 1.6 mg/dL (0.2-1.0); CALCIUM 9.5 mg/dL (8.5-10.3); CREATININE 0.7 mg/dL (0.6-1.3); POTASSIUM 4.2 mmol/L (3.5-4.5); TOTAL PROTEIN 7.3 g/dL (6.4-8.9)
[2024-01-19] MEDS: IPRATROPIUM/ALBUTEROL 3 ML NEB INH STA (13:49)
[2024-01-19] MEDS: CHERRY SYRUP 10 ML UDC PO ONE (13:54)
[2024-01-19] MEDS: DEXAMETHASONE 10 MG/ML VIAL PO STA (13:55)
[2024-01-19] MEDS: cefTRIAXone 1 GM in SODIUM CHLORIDE 0.9% MINIBAG 100 ML IV STA (14:40)
--- NOTE | 2024-01-19 14:57 | XRAY Report ---
PROCEDURE: Chest 1V INDICATIONS: soa TECHNIQUE: One view of the chest was acquired. COMPARISON: 01/17/2024 FINDINGS: Surgical changes and devices: None. Lungs and pleura: There is volume loss and mediastinal shift involving the left lung with surgical c lips left lung thoracic apex chronic interstitial changes. Right lung and pleural space clear. Mediastinum: Mediastinal contours appear normal. Heart size is normal. Bones and chest wall: No suspicious bony lesions. Overlying soft tissues appear unremarkable. IMPRESSION: No acute cardiopulmonary findings. No change in prior Chronic left thorax surgical findings Reviewed by: Jh Cooper MD on 01/19/2024 1:56 PM AKDT Approved by: Jh Cooper MD on 01/19/2024 1:56 PM AKDT Station ID: [id number]
[2024-01-19 15:47] VITALS: BP 160/94; O2SAT 95
== END 2024-01-19 15:45 | disposition home or self-care (01) ==
LOC: ED 12:36
DX: J44.1 Chronic obstructive pulmonary disease with (acute) exacerbation (principal); J18.9 Pneumonia, unspecified organism; Z66 Do not resuscitate
CPT/HCPCS: 36415; 71045; 80053; 83690; 83880; 85025; 94640; 96365; 99284; A9270

== ENCOUNTER 2024-03-14 08:38 | Emergency (ER) | payer MEDICARE ==
[2024-03-14 08:54] VITALS: O2SAT 93
--- NOTE | 2024-03-14 09:30 | ED Physician Documentation ---
PD HPI DYSPNEA - Stated complaint Stated Complaint: SOA,DEPRESSED - Chief complaint Chief Complaint: MHE - History obtained from History obtained from: Patient - History of Present Illness Timing - onset: How many months ago (1) Timing - onset during: Rest Timing - duration: Months (1) Timing - details: Gradual onset, Still present Inciting event(s): Other (the nebulizer does not seem to be helping as much) Improved by: O2, Inhaler/neb Worsened by: Exertion, Laying flat Associated symptoms: Cough, Bilateral edema, Other (swelling to the abdomen). No: Chest pain / discomfort, Palpitations, Diaphoresis Similar symptoms before: Diagnosis (COPD, CHF, lung cancer) Recently seen: Clinic (seen in urology) - Additional information Additional information: Denzel Fisher is an 83-year-old male who presents today to the emergency department with a chief complaint that his nebulizer machine is not helping as much as it used to and he is not able to go a full 6 hours without needing it. He has been waking up at night and feeling like he is going to with shortness of breath. He is able to move into his easy chair where he sleeps sitting up. He is now only able to go about 15 feet before dropping his oxygen saturation while wearing 1 L of oxygen. He has gone in to see the urologist after his visit to the emergency department 2 months ago. His bladder did not appear overdistended and he is continued on his Flomax. Following his last visit he had significant improvement in his lung status for about 1 month. He was able to walk full distance of his house without becoming short of breath. He has noticed some swelling to his abdomen despite not eating much. He has noticed some swelling in both of his lower extremities. Review of Systems Constitutional: reports: Fatigue. denies: Fever, Chills, Myalgias Eyes: denies: Decreased vision Ears: denies: Ear pain Nose: denies: Rhinorrhea / runny nose, Congestion Throat: denies: Sore throat Cardiac: denies: Chest pain / pressure, Palpitations Respiratory: reports: Dyspnea, Cough GI: denies: Abdominal Pain, Nausea, Vomiting, Constipation, Diarrhea : denies: Dysuria, Frequency Skin: denies: Rash Musculoskeletal: reports: Extremity swelling. denies: Neck pain, Back pain, Ex tremity pain Neurologic: denies: Generalized weakness, Focal weakness, Numbness PD PAST MEDICAL HISTORY - Past Medical History Cardiovascular: Hypertension, Murmur Respiratory: COPD, Shortness of breath Neuro: None Endocrine/Autoimmune: None GI: Colon polyps : Benign prostate hypertrophy, Other HEENT: Chronic vision loss, Chronic hearing loss Psych: Anxiety Musculoskeletal: Gout Derm: None - Past Surgical History Past Surgical History: Yes General: Colonoscopy Cardiovascular: Lobectomy HEENT: Detached retina repair, Tonsil/Adenoidectomy - Present Medications Home Medications: Ambulatory Orders Medication Instructions Recorded Confirmed Metoprolol Succinate 25 mg PO DAILY 07/25/16 02/07/23 Aspirin [[place] Aspirin] 81 mg PO DAILY 01/19/22 02/07/23 Diltiazem HCl [Cardizem] 120 mg PO DAILY 01/19/22 02/07/23 Ipratropium/Albuterol [Combivent 1 puffs INH QID 01/19/22 02/07/23 Respimat] Tamsulosin [Flomax] 0.4 mg PO DAILY 02/01/23 02/07/23 Valsartan 160 mg PO DAILY 02/01/23 02/07/23 predniSONE [Deltasone] 5 mg PO DAILY 02/01/23 02/07/23 HYDROcod/ACETAM 5/325 [[place] 5/325] 1 each PO Q6H PRN #20 tablet 02/07/23 HYDROcod/ACETAM 5/325 [[place] 5/325] 1 each PO Q6H PRN #25 tablet 02/07/23 Doxycycline [Vibramycin] 100 mg PO BID #14 tablet 06/03/23 predniSONE [Deltasone] 20 mg PO [id number] #21 tab 06/03/23 Azithromycin [Zithromax] 250 mg PO DAILY #6 tablet 01/19/24 predniSONE [Deltasone] 10 mg PO ONCE #26 tablet 01/19/24 Doxycycline [Vibramycin] 100 mg PO BID #20 tablet 03/14/24 LORazepam [Ativan] 0.5 mg PO Q6H PRN #20 tablet 03/14/24 predniSONE [Deltasone] 10 mg PO ONCE #26 tablet 03/14/24 - Allergies Allergies/Adverse Reactions: Allergies Allergy/AdvReac Type Severity Reaction Status Date / Time No Known Drug Allergies Allergy Verified 03/14/24 08:50 - Social History Does the pt smoke?: No Smoking Status: Never smoker Does the pt drink ETOH?: No Does the pt have substance abuse?: No - Immunizations Immunizations are current?: Yes - POLST Patient has POLST: Yes POLST Status: DNR PD ED PE NORMAL - Vitals Vital signs reviewed: Yes (Tachycardic and hypertensive) - General General: Alert and oriented X 3, No acute distress, Well developed/nourished - HEENT HEENT: Atraumatic, PERRL, EOMI - Neck Neck: Supple, no meningeal sign, No bony TTP - Cardiac Cardiac: RRR, No murmur - Respiratory Respiratory: No respiratory distress, Other (The lower lung case are clear the upper left is without air movement.) - Abdomen Abdomen: Soft, Non tender, Other (There is slight abdominal distention it is nontender and there is no obvious fluid wave.) - Back Back: No CVA TTP, No spinal TTP - Derm Derm: Normal color, Warm and dry, No rash - Extremities Extremities: No deformity, Other (Trace edema bilaterally to the mid calf.) - Neuro Neuro: Alert and oriented X 3, 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 He denies suicidal ideation. His affect is with full range. And does show concern for his clinical presentation.) Results - Vitals Vitals: Vital Signs - 24 hr 03/14/24 03/14/24 08:47 12:20 Temperature 36.7 C Heart Rate 103 H 100 Respiratory 22 20 Rate Blood Pressure 184/87 H O2 Saturation 93 If not protocol 2 : Oxygen Flow, liters/minute Oxygen O2 Source Nasal cannula - Labs Labs: Laboratory Tests 03/14/24 03/14/24 03/14/24 09:41 09:41 09:41 WBC 7.5 RBC 5.35 Hgb 14.7 Hct 47.3 MCV 88.4 MCH 27.5 MCHC 31.1 L RDW 15.0 Plt Count 178 MPV 8.8 Neut # (Auto) 6.3 Lymph # (Auto) 0.5 L Jewell # (Auto) 0.6 Eos # (Auto) 0.2 Baso # (Auto) 0.0 Absolute Nucleated RBC 0.00 Nucleated RBC % 0.0 Sodium 135 Potassium 4.5 Chloride 99 L Carbon Dioxide 30 Anion Gap 6.0 BUN 17 Creatinine 0.7 Estimated GFR (MDRD) 108 Glucose 106 H Lactic Acid 0.8 Calcium 9.7 Total Bilirubin 1.6 H AST 24 ALT 10 Alkaline Phosphatase 83 Troponin I High Sens B-Natriuretic Peptide Total Protein 6.5 Albumin 4.0 Globulin 2.5 Albumin/Globulin Ratio 1.6 Lipase 15 Urine Color Urine Clarity Urine pH Ur Specific [place] Urine Protein Urine Glucose (UA) Urine Ketones Urine Occult Blood Urine Nitrite Urine Bilirubin Urine Urobilinogen Ur Leukocyte Esterase Urine RBC Urine WBC Ur Squamous Epith Cells Urine Bacteria Ur Microscopic Review Urine Culture Comments Nasal Adenovirus (PCR) Nasal B. parapertussis DNA (PCR) Nasal Coronavir 229E PCR Nasal Coronavir HKU1 PCR Nasal Coronavir NL63 PCR Nasal Coronavir OC43 PCR Nasal Enterovir/Rhinovir PCR Nasal Influenza B PCR Nasal Influenza A PCR Nasal Parainfluen 1 PCR Nasal Parainfluen 2 PCR Nasal Parainfluen 3 PCR Nasal Parainfluen 4 PCR Nasal RSV (PCR) Nasal B.pertussis DNA PCR Nasal C.pneumoniae (PCR) Anthony Human Metapneumo PCR Nasal M.pneumoniae (PCR) Nasal SARS-CoV-2 (PCR) 03/14/24 03/14/24 03/14/24 09:41 09:41 09:59 WBC RBC Hgb Hct MCV MCH MCHC RDW Plt Count MPV Neut # (Auto) Lymph # (Auto) Jewell # (Auto) Eos # (Auto) Baso # (Auto) Absolute Nucleated RBC Nucleated RBC % Sodium Potassium Chloride Carbon Dioxide Anion Gap BUN Creatinine Estimated GFR (MDRD) Glucose Lactic Acid Calcium Total Bilirubin AST ALT Alkaline Phosphatase Troponin I High Sens 7.0 B-Natriuretic Peptide 124 H Total Protein Albumin Globulin Albumin/Globulin Ratio Lipase Urine Color YELLOW Urine Clarity CLEAR Urine pH 7.5 Ur Specific [place] 1.020 Urine Protein 30 H Urine Glucose (UA) NEGATIVE Urine Ketones NEGATIVE Urine Occult Blood NEGATIVE Urine Nitrite NEGATIVE Urine Bilirubin NEGATIVE Urine Urobilinogen 0.2 (NORMAL) Ur Leukocyte Esterase NEGATIVE Urine RBC None Seen Urine WBC 0-3 Ur Squamous Epith Cells NONE SEEN Urine Bacteria Few Ur Microscopic Review INDICATED Urine Culture Comments NOT INDICATED Nasal Adenovirus (PCR) Nasal B. parapertussis DNA (PCR) Nasal Coronavir 229E PCR Nasal Coronavir HKU1 PCR Nasal Coronavir NL63 PCR Nasal Coronavir OC43 PCR Nasal Enterovir/Rhinovir PCR Nasal Influenza B PCR Nasal Influenza A PCR Nasal Parainfluen 1 PCR Nasal Parainfluen 2 PCR Nasal Parainfluen 3 PCR Nasal Parainfluen 4 PCR Nasal RSV (PCR) Nasal B.pertussis DNA PCR Nasal C.pneumoniae (PCR) Anthony Human Metapneumo PCR Nasal M.pneumoniae (PCR) Nasal SARS-CoV-2 (PCR) 03/14/24 09:59 WBC RBC Hgb Hct MCV MCH MCHC RDW Plt Count MPV Neut # (Auto) Lymph # (Auto) Jewell # (Auto) Eos # (Auto) Baso # (Auto) Absolute Nucleated RBC Nucleated RBC % Sodium Potassium Chloride Carbon Dioxide Anion Gap BUN Creatinine Estimated GFR (MDRD) Glucose Lactic Acid Calcium Total Bilirubin AST ALT Alkaline Phosphatase Troponin I High Sens B-Natriuretic Peptide Total Protein Albumin Globulin Albumin/Globulin Ratio Lipase Urine Color Urine Clarity Urine pH Ur Specific [place] Urine Protein Urine Glucose (UA) Urine Ketones Urine Occult Blood Urine Nitrite Urine Bilirubin Urine Urobilinogen Ur Leukocyte Esterase Urine RBC Urine WBC Ur Squamous Epith Cells Urine Bacteria Ur Microscopic Review Urine Culture Comments Nasal Adenovirus (PCR) NOT DETECTED Nasal B. parapertussis DNA (PCR) NOT DETECTED Nasal Coronavir 229E PCR NOT DETECTED Nasal Coronavir HKU1 PCR NOT DETECTED Nasal Coronavir NL63 PCR NOT DETECTED Nasal Coronavir OC43 PCR NOT DETECTED Nasal Enterovir/Rhinovir PCR NOT DETECTED Nasal Influenza B PCR NOT DETECTED Nasal Influenza A PCR NOT DETECTED Nasal Parainfluen 1 PCR NOT DETECTED Nasal Parainfluen 2 PCR NOT DETECTED Nasal Parainfluen 3 PCR NOT DETECTED Nasal Parainfluen 4 PCR NOT DETECTED Nasal RSV (PCR) NOT DETECTED Nasal B.pertussis DNA PCR NOT DETECTED Nasal C.pneumoniae (PCR) NOT DETECTED Anthony Human Metapneumo PCR NOT DETECTED Nasal M.pneumoniae (PCR) NOT DETECTED Nasal SARS-CoV-2 (PCR) NOT DETECTED - Rads (name of study) CT chest Relevant Findings:: Prelim report reviewed (Impression: Pleural thickening with strandy parenchymal opacities on the left s/p lobectomy. Findings are suspected to be evolving postsurgical changes versus a minimal pleural-based effusion.), EMP independent interpretation of test, See rad report CT abdomen pelvis with Relevant Findings:: Prelim report reviewed (Impression: Diverticulosis. Bilateral simple renal cyst. No obstruction. Colonic stool.), EMP independent interpretation of test, See rad report Procedures - Bedside sono Bedside sono by EMP: With use of POCUS the right kidney is imaged there does not appear to be either hydronephrosis or cysts associated and there is a large collection of fluid but appears to be associated with a right kidney. This is nontender. The left kidney is without hydronephrosis and without evidence of free fluid. - IVC sono (time) 0900 Bedside IVC sono: IVC measures (cm) (1.49), IVC collapsed c insp (cm) (0.95), Euvolemia PD Medical Decision Making - ED course Complexity details: reviewed old records, reviewed results, re-evaluated patient, considered differential, d/w patient Reviewed Lab Results: We reviewed a complete blood count showing a normal white blood cell count normal hemoglobin hematocrit and platelets similar to what the patient has had previously on evaluation. Chemistries are unremarkable with normal electrolytes normal kidney and liver function total bilirubin is elevated at 1.6 similar to what the patient has had previously for years high-sensitivity troponin was normal at 7.0 lactic acid was normal at 0.8 BNP is normal at 124 urinalysis is unremarkable as is a respiratory PCR. His laboratory studies do not provide a specific diagnosis and are reassuring for confirmation of the diagnosis provided which is exacerbation of COPD. ED course: This patient presents with exertional dyspnea paroxysmal nocturnal dyspnea and orthopnea. Worsening of symptoms. Differential includes pneumonia exacerbation of COPD CHF pulmonary embolism and anxiety. This patient's history is concerning for an exacerbation of COPD and this appears to be without an acute pneumonia. I evaluated the patient for congestive heart failure with a interrogation of the inferior vena cava with POCUS and found that he had a normal size collapsing vessel. I do not believe his symptoms are related to congestive heart failure. We did a detailed examination of the patient's chest with a contrast CT and did not find evidence of pneumonia CHF or pulmonary embolism.We did a CT of the patient's abdomen and pelvis as he was complaining of distention of the abdomen without eating more food. This study was concerning only for a significant stool load. We will provide instructions on caring for constipation. The patient also was concerned about not being able to get to sleep at night after an episode of shortness of breath. He appears anxious. I had the foster care social worker consult with the patient and found that he does have some anxiety related to his lung disease and he is living alone. He has 3 sons in the area all of which have asked him to come live with them and he is not ready to move out of the house that he built. We will provide some anxiolytic for the patient to take on a as needed basis. Departure - Departure Disposition: 01 Home, Self Care Clinical Impression: COPD with exacerbation, Anxiety Dyspnea Qualifiers: Dyspnea type: dyspnea on exertion Qualified Code(s): R06.09 - Other forms of dyspnea Constipation Qualifiers: Constipation type: unspecified constipation type Qualified Code(s): K59.00 - Constipation, unspecified Condition: Stable Instructions: ED Constipation, ED COPD Flare, ED Stress React Follow-Up: Meka Estrella ARNP [Primary Care Provider] - Prescriptions: LORazepam [Ativan] 0.5 mg PO Q6H PRN #20 tablet PRN Reason: Anxiety predniSONE [Deltasone] 10 mg PO ONCE #26 tablet Doxycycline [Vibramycin] 100 mg PO BID #20 tablet Comments: Denzel, today it looks like you are having another exacerbation of your COPD as a reason for worsening of your shortness of breath. This is usually treated with a course of steroid and antibiotic and I have E scribed some prednisone and doxycycline to the [facility] in [place]. In addition it looks like there is some issue with anxiety in the night when you wake up with shortness of breath and you are having a difficult time getting back to sleep. I have E scribed a prescription for some Ativan to the [facility] in [place] and this medication is a sedative that may be helpful when you are having trouble getting back to sleep take it and expect to have some aid with sleep within about half an hour. In addition we also found some constipation on your abdominal CT and this is likely the reason you are feeling your abdomen is enlarged and bloated. Treatment for this should be some milk of magnesia to clean the bowels out followed by a regular use of MiraLAX. The MiraLAX has a number of agents in it and the effectiveness of this is to retrain your colon to have normal bowel movement. Constipation is sometimes an early sign of Parkinson's disease and I do note some mild cogwheeling on your upper extremities and I recommend follow-up with Dr. Rasheed for further evaluation. Forms: PCP List
[2024-03-14 09:48] LABS: BASOPHILS % (AUTO) 0.3 %; EOSINOPHILS # (AUTO) 0.2 10^3/uL (0.0-0.7); EOSINOPHILS % (AUTO) 2.5 %; HCT - HEMATOCRIT 47.3 % (42.0-52.0); HGB - HEMOGLOBIN 14.7 g/dL (14.0-18.0); LYMPHOCYTES # (AUTO) 0.5 10^3/uL (1.5-3.5); LYMPHOCYTES % (AUTO) 6.4 %; MEAN CORPUSCULAR HEMOGLOBIN 27.5 pg (27.0-31.0); MEAN CORPUSCULAR HGB CONC 31.1 g/dL (32.0-36.0); MEAN CORPUSCULAR VOLUME 88.4 fL (80.0-94.0); MEAN PLATELET VOLUME 8.8 fL (7.4-11.4); MONOCYTES # (AUTO) 0.6 10^3/uL (0.0-1.0); MONOCYTES % (AUTO) 7.3 %; NEUTROPHILS # (AUTO) 6.3 10^3/uL (1.5-6.6); NEUTROPHILS % (AUTO) 83.2 %; PLT - PLATELET COUNT 178 10^3/uL (130-450); RED BLOOD COUNT 5.35 10^6/uL (4.70-6.10); WHITE BLOOD COUNT 7.5 x10^3/uL (4.8-10.8)
[2024-03-14 10:14] LABS: ALBUMIN/GLOBULIN RATIO 1.6 (1.0-2.2); BILIRUBIN,TOTAL 1.6 mg/dL (0.2-1.0); CALCIUM 9.7 mg/dL (8.5-10.3); CREATININE 0.7 mg/dL (0.6-1.3); POTASSIUM 4.5 mmol/L (3.5-4.5); TOTAL PROTEIN 6.5 g/dL (6.4-8.9)
[2024-03-14 10:16] LABS: BILIRUBIN,URINE NEGATIVE (NEGATIVE); GLUCOSE, URINE (UA) NEGATIVE (NEGATIVE); KETONES,URINE (UA) NEGATIVE (NEGATIVE); LEUKOCYTE ESTERASE, URINE NEGATIVE (NEGATIVE); NITRITE,URINE NEGATIVE (NEGATIVE); OCCULT BLOOD,URINE NEGATIVE (NEGATIVE); PH,URINE 7.5 PH (5.0-7.5); PROTEIN,URINE 30 mg/dL (NEGATIVE); UROBILINOGEN,URINE 0.2 (NORMAL) E.U./dL (NORMAL)
[2024-03-14] MEDS ORDERED: iohexoL-300 100 ML VIAL ONE (10:17)
[2024-03-14 10:23] LABS: CLARITY,URINE CLEAR (CLEAR)
[2024-03-14 10:29] LABS: BACTERIA,URINE Few /HPF (None Seen); RBC,URINE None Seen /HPF (0-5); SQUAMOUS EPITHELIAL CELL,UR NONE SEEN (<= Few); WBC,URINE 0-3 /HPF (0-3)
[2024-03-14 10:59] LABS: B. PARAPERTUSSIS- RESP PCR PAN NOT DETECTED; B. PERTUSSIS- RESP PCR PANEL NOT DETECTED; C. PNEUMONIAE- RESP PCR PANEL NOT DETECTED; CORONAVIRUS 229E-RESP PCR NOT DETECTED; CORONAVIRUS HKU1-RESP PCR NOT DETECTED; CORONAVIRUS NL63-RESP PCR NOT DETECTED; CORONAVIRUS OC43-RESP PCR NOT DETECTED; HUMAN METAPNEUMOVIRUS NOT DETECTED; INFLUENZA A- RESP PCR PANEL NOT DETECTED; INFLUENZA B - RESP PCR PANEL NOT DETECTED; M. PNEUMONIAE- RESP PCR PANEL NOT DETECTED; PARAINFLUENZA VIRUS 1 NOT DETECTED; PARAINFLUENZA VIRUS 2 NOT DETECTED; PARAINFLUENZA VIRUS 3 NOT DETECTED; PARAINFLUENZA VIRUS 4 NOT DETECTED; RHINOVIRUS/ENTEROVIRUS NOT DETECTED; RSV- RESP PCR PANEL NOT DETECTED; SARS-CoV-2 -RESP PCR PANEL NOT DETECTED
--- NOTE | 2024-03-14 11:22 | CT Report ---
PROCEDURE: Chest W INDICATIONS: dyspnea, lobectomy CONTRAST: 100ml omni 300 TECHNIQUE: After the administration of intravenous contrast, a CT scan of the chest was performed. Images were recorded and evaluated at appropriate window settings. Reformats: axial MIP of the chest, coronal and sagittal. For radiation dose reduction, the following was used: automated exposure control, adjustme nt of mA and/or kV according to patient size. COMPARISON: Chest x-ray 01/19/2024, CT chest 07/29/2023 FINDINGS: Image quality: Diagnostic. Chest wall and lower neck: No thyroid nodule which requires sonographic follow up. No breast mass. No axillary or supraclavicular adenopathy by size. Lungs and pleura: In interval since prior CT exam, there is appearance of left hemithorax pleural thi ckening with scattered opacities. No focal consolidations. Postsurgical changes reflecting left upper lobectomy are present. Mediastinum: Heart size is normal. Trace pericardial effusion. No large vessel abnormality. No medias tinal adenopathy by size criteria. Bones: No aggressive osseous abnormality. Postsurgical rib fractures. Upper Abdomen: See separately dictated CT abdomen and pelvis report of 03/14/2024 for further details. IMPRESSION: Pleural thickening with strandy parenchymal opacities on the left status post lobectomy. Findings are suspected to be evolving postsurgical change versus minimal pleural-based effusion. Reviewed by: Nelly Hutchison MD on 03/14/2024 11:21 AM PDT Approved by: Nelly Hutchison MD on 03/14/2024 11:21 AM PDT Station ID: [id number]
--- NOTE | 2024-03-14 11:25 | CT Report ---
PROCEDURE: Abdomen/Pelvis W INDICATIONS: dyspnea abdominal distention, fluid collection R k CONTRAST: 100ml omni 300 TECHNIQUE: After the administration of intravenous contrast, a CT scan of the abdomen and pelvis was performed. Images were recorded and evaluated at appropriate window settings. Reformats: coronal and sagittal. F or radiation dose reduction, the following was used: automated exposure control, adjustment of mA and /or kV according to patient size. COMPARISON: CT abdomen pelvis 01/20/2020 FINDINGS: Image quality: Diagnostic. Lower chest: See CT chest report of 03/14/2024 noting pleural thickening and dependent change. Liver: No solid mass. Gallbladder: Unremarkable. Biliary tree: No intrahepatic or extrahepatic dilation, accounting for age. Spleen: No splenomegaly. Pancreas: No pancreatic ductal dilation. Adrenals: No adrenal nodule. Kidneys and ureters: No hydronephrosis. No renal cystic lesion which requires follow up. No solid mas s. Simple bilateral cysts. Stomach, bowel and peritoneum: No gastric or small bowel dilation. No abnormal wall thickening. No pa thologic free fluid. Colonic diverticular present without associated inflammatory change. Moderate co lonic stool. Lymph nodes: No central or retroperitoneal adenopathy. Vessels: No infrarenal aortic aneurysm. Patent portal vein. PELVIS Reproductive organs: Radiation prostate seeds are present.. Bladder: No abnormal wall thickening, accounting for underdistention. Pelvic lymph nodes: No pelvic adenopathy by size criteria. Bones: No aggressive osseous abnormality. Other: Bilateral fat-containing inguinal hernias. Inguinal hernia. IMPRESSION: Diverticulosis. Bilateral simple renal cysts. No obstruction. Colonic stool. Reviewed by: Nelly Hutchison MD on 03/14/2024 11:24 AM PDT Approved by: Nelly Hutchison MD on 03/14/2024 11:24 AM PDT Station ID: [id number]
[2024-03-14] MEDS: IPRATROPIUM/ALBUTEROL 3 ML NEB INH STA (12:18)
[2024-03-14] MEDS: iohexoL-300 100 ML VIAL IVP ONE (12:18)
[2024-03-14] MEDS: DEXAMETHASONE 10 MG/ML VIAL IVP STA (12:30)
[2024-03-14 15:26] VITALS: BP 148/75
== END 2024-03-14 15:20 | disposition home or self-care (01) ==
LOC: ED 08:38
DX: J44.1 Chronic obstructive pulmonary disease with (acute) exacerbation (principal); F41.9 Anxiety disorder, unspecified; K59.00 Constipation, unspecified; Z66 Do not resuscitate
CPT/HCPCS: 36415; 71260; 74177; 80053; 81001; 83605; 83690; 83880; 84484; 85025; 87633; 94640; 96374; 99284; Q9967; 81003; 87086

== ENCOUNTER 2024-04-13 08:07 | Outpatient (CLI) | payer MEDICARE ==
[2024-04-13 15:11] LABS: BASOPHILS % (AUTO) 0.3 %; EOSINOPHILS # (AUTO) 0.3 10^3/uL (0.0-0.7); EOSINOPHILS % (AUTO) 4.3 %; LYMPHOCYTES # (AUTO) 0.4 10^3/uL (1.5-3.5); LYMPHOCYTES % (AUTO) 7.4 %; MEAN CORPUSCULAR HEMOGLOBIN 28.2 pg (27.0-31.0); MEAN CORPUSCULAR VOLUME 91.1 fL (80.0-94.0); MEAN PLATELET VOLUME 9.3 fL (7.4-11.4); MONOCYTES # (AUTO) 0.5 10^3/uL (0.0-1.0); MONOCYTES % (AUTO) 8.7 %; NEUTROPHILS # (AUTO) 4.6 10^3/uL (1.5-6.6); NEUTROPHILS % (AUTO) 79.1 %; PLT - PLATELET COUNT 309 10^3/uL (130-450); RED BLOOD COUNT 4.61 10^6/uL (4.70-6.10); RED CELL DISTRIBUTION WIDTH 14.8 % (12.0-15.0); WHITE BLOOD COUNT 5.9 x10^3/uL (4.8-10.8)
[2024-04-13 15:14] LABS: SLIDE REVIEW? Indicated
[2024-04-13 15:46] LABS: CALCIUM 9.3 mg/dL (8.5-10.3); CREATININE 0.7 mg/dL (0.6-1.3); POTASSIUM 4.3 mmol/L (3.5-4.5)
[2024-04-13 15:56] LABS: TROPONIN I HIGH SENSITIVITY 7.6 ng/L (2.3-19.7)
[2024-04-13 16:29] LABS: PLATELET ESTIMATE, MANUAL NORMAL (130-450,000) (NORMAL); PLATELET MORPHOLOGY NORMAL APPEARANCE (NORMAL); RBC MORPHOLOGY (MULTIPLE) NORMAL APPEARANCE (NORMAL)
== END 2024-04-13 08:08 | disposition home or self-care (01) ==
LOC: LAB.S 08:07
PROVIDERS: ATTEND Registered Nurse
DX: I50.9 Heart failure, unspecified (principal); R06.09 Other forms of dyspnea; R09.02 Hypoxemia
CPT/HCPCS: 36415; 80048; 83880; 84484; 85025; 85379